=== PATIENT | female | born 1930 | race Caucasian/White ===

== ENCOUNTER 2016-05-18 10:37 | Emergency (ER) | payer OTHER ==
[~2016-05-18] VITALS: Ht 157.5 cm; Wt 95.0 kg
[~2016-05-18 10:37] MED LIST: ATEN100T PO; ATEN50TA PO; ATOR10TA15 PO; GLIM1TAB PO; HYDR-4107 PO; ISOS30TA15 PO; LOSA50TA PO; MECL-62 PO; METF500T PO; OMEP20TA PO; PERC5TAB12 PO
[2016-05-18 10:47] VITALS: BP 127/58; PULSE 60; RESP 18; TEMP 98.6; O2SAT 99
[2016-05-18 10:54] VITALS: BP 127/58; PULSE 59; RESP 18; O2SAT 100
[2016-05-18] MEDS ORDERED: SODIUM CHLORIDE 0.9% FLUSH 10 ML FLUSH IVF PRN (11:00)
--- NOTE | 2016-05-18 11:00 | PD ---
HPI Chief Complaint: Pain: Acute or Chronic Time Seen by Provider: 10:59 Travel History International Travel<30 days: No Contact w/Intl Traveler<30days: No Traveled to known affect area: No History of Present Illness HPI 85-year-old female came to the emergency room with history of a fall due to tripping and losing balance. She landed on her back and low she is hurting all over. Patient does have history of arthritis and chronic pain. She is not sure if she hurt her head. She called 911. They found her on the kitchen floor and she was therefore half an hour she said. She is awake and answering questions appropriately. Vital signs are relatively stable. PFSH Past Medical History Narrative Medical List of her past medical, surgical, social and family history was reviewed from the nursing note. Arthritis: Yes Asthma: No Blood Disorders: No Anxiety: Yes Depression: Yes Heart Rhythm Problems: No Cancer: No Cardiovascular Problems: Yes High Cholesterol: Yes Chest Pain: Yes Congestive Heart Failure: Yes COPD: Yes Coronary Artery Disease: Yes Diabetes: Yes Diminished Hearing: No Endocrine: Yes Gastrointestinal Disorders: Yes GERD: Yes Glaucoma: No Genitourinary: No Headaches: Yes Hepatitis: No Hiatal Hernia: No Hypertension: Yes Immune Disorder: No Musculoskeletal: No Neurologic: No Psychiatric: Yes Reproductive: No Immunizations Current: Yes Migraines: No Myocardial Infarction: Yes (2001) Radiation Therapy: No Seizures: No Sickle Cell Disease: No Sleep Apnea: No Ulcer: Yes (STOMACH) PNEUMOCCOCAL Vaccine (Year): 1 Menopausal: Yes : 10 Para: 9 Miscarriage: 1 Past Surgical History Abdominal Surgery: No AICD: No Arteriovenous Shunt: No Cardiac Surgery: Yes (CABG) Coronary Artery Bypass Graft: Yes ("4 OR 5 VESSELS") Ear Surgery: No Endocrine Surgery: No Eye Surgery: Yes (RT and LT CATARACTS) Genitourinary Surgery: No Gynecologic Surgery: No Insulin Pump: No Joint Replacement: No Oral Surgery: No Pacemaker: No Thoracic Surgery: No Tonsillectomy: Yes Other Surgery: Yes Social History Alcohol Use: No Tobacco Use: Yes (pt quit 15 years ago,) Substance Use: No Allergies-Medications (Allergen,Severity, Reaction): Coded Allergies: Contrast Media (Verified Allergy, Severe, CAN'T REMEMBER, 05/18/16) Pt states "I have no idea" to every allergy I ask her about Iodine (Verified Allergy, Severe, ON SKIN CAUSES BLISTERS, 05/18/16) Pt states "I have no idea" to every allergy I ask her about Shellfish (Verified Allergy, Severe, N/V, 05/18/16) Pt states "I have no idea" to every allergy I ask her about Codeine (Verified Allergy, Mild, NAUSEA, 05/18/16) Pt states "I have no idea" to every allergy I ask her about Comments List of her allergies reviewed from the nursing note. Reported Meds & Prescriptions Reported Meds & Active Scripts Active Macrobid (Nitrofurantoin Monoh/Nitrofur Macro) 100 Mg Cap 100 Mg PO BID 10 Days Reported Gabapentin 100 Mg Cap 100 Mg PO HS Hydrocodone-Acetaminophen 5-300 Mg Tab 1 Tab PO Q4H PRN Meclizine (Meclizine HCl) 25 Mg Tab 25 Mg PO DIRECTED PRN Atorvastatin (Atorvastatin Calcium) 10 Mg Tab 10 Mg PO HS Atenolol 50 Mg Tab 50 Mg PO DAILY Omeprazole 20 Mg Tab 20 Mg PO DAILY Losartan (Losartan Potassium) 50 Mg Tab 50 Mg PO DAILY Isosorbide Dinitrate 30 Mg Tab 1 Tab PO DAILY Glimepiride 1 Mg Tab 1 Mg PO DAILY Take with breakfast or first main meal Metformin (Metformin HCl) 500 Mg Tab 500 Mg PO BIDPC With meals Narrative Medication List of her home medications reviewed from the nursing note. Review of Systems Except as stated in HPI: all other systems reviewed are Neg Physical Exam Narrative GENERAL: Awake, alert, elderly, obese, moderate distress SKIN: Focused skin assessment warm/dry. No open wounds or bruises noticed. HEAD: Atraumatic. Normocephalic. EYES: Pupils equal and round. No scleral icterus. No injection or drainage. ENT: No nasal bleeding or discharge. Mucous membranes pink and moist. NECK: Trachea midline. No JVD. CARDIOVASCULAR: Regular rate and rhythm. No murmur appreciated. RESPIRATORY: No accessory muscle use. Clear to auscultation. Breath sounds equal bilaterally. GASTROINTESTINAL: Abdomen soft, non-tender, nondistended. Hepatic and splenic margins not palpable. MUSCULOSKELETAL: No obvious deformities. No clubbing. No cyanosis. No edema. NEUROLOGICAL: Awake and alert. No obvious cranial nerve deficits. Motor grossly within normal limits. Normal speech. PSYCHIATRIC: Appropriate mood and affect; insight and judgment normal. Data Data Last Documented VS Vital Signs Date Time Temp Pulse Resp B/P Pulse Ox O2 Delivery O2 Flow Rate FiO2 05/18/16 15:42 59 18 145/67 97 Room Air 05/18/16 10:47 98.6 Orders Complete Blood Count With Diff (05/18/16 11:00) Basic Metabolic Panel (Bmp) (05/18/16 11:00) Urinalysis - C+S If Indicated (05/18/16 11:00) Ct Brain W/O Iv Contrast(Rout) (05/18/16 11:00) Chest, Single Ap (05/18/16 11:00) Ecg Monitoring (05/18/16 11:00) Iv Access Insert/Monitor (05/18/16 11:00) Oximetry (05/18/16 11:00) Sodium Chloride 0.9% Flush (Ns Flush) (05/18/16 11:00) Ct Cerv Spine W/O Contrast (05/18/16 ) Tetanus/Diphtheria Tox Adult (Tetanus/Di (05/18/16 11:15) Diet Heart Healthy (05/18/16 Lunch) Urine Culture (05/18/16 11:15) Nitrofurantoin Monohyd Macrocr (Macrobid (05/18/16 12:30) Acetamin-Hydrocod 325-5 Mg ([place] 5-325 (05/18/16 14:00) Labs Laboratory Tests Test 05/18/16 05/18/16 11:00 11:15 White Blood Count 6.3 TH/MM3 Red Blood Count 3.74 MIL/MM3 Hemoglobin 9.8 GM/DL Hematocrit 30.9 % Mean Corpuscular Volume 82.5 FL Mean Corpuscular Hemoglobin 26.3 PG Mean Corpuscular Hemoglobin 31.9 % Concent Red Cell Distribution Width 15.7 % Platelet Count 180 TH/MM3 Mean Platelet Volume 10.9 FL Neutrophils (%) (Auto) 67.6 % Lymphocytes (%) (Auto) 21.0 % Monocytes (%) (Auto) 7.5 % Eosinophils (%) (Auto) 3.0 % Basophils (%) (Auto) 0.9 % Neutrophils # (Auto) 4.3 TH/MM3 Lymphocytes # (Auto) 1.3 TH/MM3 Monocytes # (Auto) 0.5 TH/MM3 Eosinophils # (Auto) 0.2 TH/MM3 Basophils # (Auto) 0.1 TH/MM3 CBC Comment DIFF FINAL Differential Comment Sodium Level 140 MEQ/L Potassium Level 4.5 MEQ/L Chloride Level 103 MEQ/L Carbon Dioxide Level 29.4 MEQ/L Anion Gap 8 MEQ/L Blood Urea Nitrogen 22 MG/DL Creatinine 1.12 MG/DL Estimat Glomerular Filtration 46 ML/MIN Rate Random Glucose 96 MG/DL Calcium Level 8.8 MG/DL Urine Color YELLOW Urine Turbidity HAZY Urine pH 6.5 Urine Specific [place] 1.014 Urine Protein TRACE mg/dL Urine Glucose (UA) NEG mg/dL Urine Ketones NEG mg/dL Urine Occult Blood NEG Urine Nitrite NEG Urine Bilirubin NEG Urine Urobilinogen LESS THAN 2.0 MG/DL Urine Leukocyte Esterase LARGE Urine RBC 1 /hpf Urine WBC 3 /hpf Urine Squamous Epithelial 7 /hpf Cells Urine Transitional Epithelial <1 /hpf Cells Urine Bacteria RARE /hpf Urine Hyaline Casts 2 /lpf Microscopic Urinalysis Comment CATH-CULTURE IND MDM Medical Decision Making Medical Screen Exam Complete: Yes Emergency Medical Condition: Yes Medical Record Reviewed: Yes Differential Diagnosis Intracranial bleed, cervical fracture, electrolyte abnormality Narrative Course 1:29 PM blood test results of back and within acceptable limits. UA suggestive of UTI. CT of the head was within normal limits. Awaiting for the report on CT cervical spine. Patient was given a dose of Macrobid. CT spine is negative she'll be discharged home on Macrobid. 1:[address] scan of her cervical spine just showed degenerative changes but otherwise negative. I'm going to discharge her at this point. Procedures EKG Prior to Arrival: No Diagnosis Primary Impression: Fall Qualified Code: W19.XXXA - Fall, initial encounter Additional Impression: UTI (urinary tract infection) Qualified Code: N39.0 - Urinary tract infection without hematuria, site unspecified Referrals: Primary Care Physician 2 days Additional Instructions: Please return to the ER if the condition worsens or any other new concerns. Take the medication as per the prescription direct. Follow-up with your primary care in couple days. Med/Other Pt SpecificInfo: Prescription(s) given Scripts Nitrofurantoin Monohydrate Macrocrystals (Macrobid)100 Mg [id number] Mg PO BID 10 Days Ref 0 Prov:Sd Hauser MD 05/18/16 Disposition: 01 DISCHARGE HOME Condition: Stable Sd Hauser MD May 18, 2016 11:00 Sd Hauser MD May 18, 2016 11:00
[2016-05-18 11:02] VITALS: RESP 18; O2SAT 99
[2016-05-18] MEDS ORDERED: TETANUS/DIPHTHERIA TOXOID ADULT 0.5 ML VIAL IM ONE (11:15)
[2016-05-18 11:27] LABS: AUTOMATED NEUTROPHIL # 4.3 TH/MM3 (1.8-7.7); BASOPHIL # 0.1 TH/MM3 (0-0.2); BASOPHIL % 0.9 % (0.0-2.0); EOSINOPHIL # 0.2 TH/MM3 (0-0.4); HEMATOCRIT 30.9 % (35.0-46.0); HEMO FLAGS DIFF FINAL; LYMPHOCYTE # 1.3 TH/MM3 (1.0-4.8); MEAN CELL VOLUME 82.5 FL (80.0-100.0); MEAN CORPUSCULAR HEMOGLOBIN 26.3 PG (27.0-34.0); MEAN CORPUSCULAR HGB CONC 31.9 % (32.0-36.0); MONO % 7.5 % (0.0-8.0); NEUT % 67.6 % (16.0-70.0); PLATELET COUNT 180 TH/MM3 (150-450); RED BLOOD COUNT 3.74 MIL/MM3 (4.00-5.30); RED CELL DISTRIBUTION WIDTH 15.7 % (11.6-17.2); WHITE BLOOD COUNT 6.3 TH/MM3 (4.0-11.0)
--- NOTE | 2016-05-18 11:31 | RADRPT ---
EXAM DATE/TIME: 05/18/2016 11:14 [facility] COMPARISON: CHEST SINGLE AP, February 15, 2015, 16:38. INDICATIONS : Short of breath. MEDICAL HISTORY : None. SURGICAL HISTORY : CABG. ENCOUNTER: Initial ACUITY: 1 day PAIN SCORE: 0/10 LOCATION: Bilateral chest FINDINGS: Mild bibasilar scarring or atelectasis. No evidence of effusion. Cardiac contours are stable. Previou s sternotomy. CONCLUSION: Stable chest appearance. Mild basilar scarring and atelectasis. Van Gautam MD on May 18, 2016 at 11:24 Board Certified Radiologist. This report was verified electronically.
[2016-05-18 11:32] LABS: BACTERIA, URINE RARE /hpf; BLOOD, URINE NEG (NEG); GLUCOSE,URINE NEG (NEG); HYALINE CAST, URINE 2 /lpf (RARE); KETONE, URINE NEG (NEG); NITRITE,URINE NEG (NEG); PH, URINE 6.5 (5.0-8.5); SQUAMOUS EPITHELIAL CELL URINE 7 /hpf (0-5); TRANSITIONAL EPI CELLS, URINE <1 /hpf; URINE COLOR YELLOW (YELLW/STRAW)
[2016-05-18 11:33] LABS: COMMENT (UR) CATH-CULTURE IND; CULTURE IF INDICATED CATH CULTURE IND
[2016-05-18 11:49] LABS: BICARBONATE 29.4 MEQ/L (21.0-32.0); POTASSIUM 4.5 MEQ/L (3.5-5.1)
[2016-05-18] MEDS ORDERED: NITROFURANTOIN MONOHYD MACROCR 100 MG CAP PO ONE (12:30)
--- NOTE | 2016-05-18 12:58 | RADRPT ---
EXAM DATE/TIME: 05/18/2016 12:19 [facility] COMPARISON: CT BRAIN W/O CONTRAST, December 30, 2015, 22:18. INDICATIONS : Trauma. Fall. RADIATION DOSE: 56.78 CTDIvol (mGy) MEDICAL HISTORY : Cardiovascular disease. Cerebrovascular disease. Diabetes mellitus type 2.Hypertension. SURGICAL HISTORY : None. ENCOUNTER: Initial ACUITY: 1 day PAIN SCALE: 10/10 LOCATION: cranial TECHNIQUE: Multiple contiguous axial images were obtained of the head. Using automated exposure control and adj ustment of the mA and/or kV according to patient size, radiation dose was kept as low as reasonably a chievable to obtain optimal diagnostic quality images. FINDINGS: CEREBRUM: The ventricles are normal for age. No evidence of midline shift, mass lesion, hemorrhage or acute in farction. No extra-axial fluid collections are seen. POSTERIOR FOSSA: The cerebellum and brainstem are intact. The 4th ventricle is midline. The cerebellopontine angle i s unremarkable. EXTRACRANIAL: The visualized portion of the orbits is intact. SKULL: The calvaria is intact. No evidence of skull fracture. CONCLUSION: Negative for acute process.. Crispin Castillo MD FACR on May 18, 2016 at 12:55 Board Certified Radiologist. This report was verified electronically.
[2016-05-18 13:00] VITALS: BP 126/67; PULSE 61; RESP 18; O2SAT 97
[2016-05-18] MEDS ORDERED: GABA100C4 PO (13:08)
[2016-05-18] MEDS ORDERED: MACR100C2 PO (13:30)
--- NOTE | 2016-05-18 13:41 | RADRPT ---
EXAM DATE/TIME: 05/18/2016 12:21 [facility] COMPARISON: CT CERVICAL SPINE W/O CONTRAST, December 30, 2015, 22:18. INDICATIONS : Trauma. Fall. RADIATION DOSE: 36.82 CTDIvol (mGy) MEDICAL HISTORY : Diabetes mellitus type 2. Cardiovascular disease Cerebrovascular disease.Hypertension. SURGICAL HISTORY : None. ENCOUNTER: Initial ACUITY: 1 day PAIN SCALE: 10/10 LOCATION: neck TECHNIQUE: Volumetric scanning of the cervical spine was performed. Multiplanar reconstructions in the sagittal, coronal and oblique axial planes were performed. Using automated exposure control and adjustment o f the mA and/or kV according to patient size, radiation dose was kept as low as reasonably achievable to obtain optimal diagnostic quality images. FINDINGS: There is slight straightening of normal cervical lordosis. No significant spondylolisthesis. There is no evidence of fracture or destructive change. There degenerative changes throughout with disc space narrowing and small endplate osteophytes at multiple levels, most conspicuously at C5-6 and C6-7. Th ere is no evidence of bony canal or foraminal compromise. There is fairly severe posterior facet arth ropathy at multiple levels bilaterally. There is no evidence of paraspinal hematoma. CONCLUSION: Degenerative changes throughout. No evidence of acute bony injury. Van Gautam MD on May 18, 2016 at 13:35 Board Certified Radiologist. This report was verified electronically.
[2016-05-18] MEDS ORDERED: ACETAMINOPHEN/HYDROcodone 325 MG/5 MG TAB PO ONE (14:00)
[2016-05-18 15:42] VITALS: BP 145/67; PULSE 59; RESP 18; O2SAT 97
== END 2016-05-18 16:04 | disposition home or self-care (01) ==
LOC: NEPC 10:37
DX: N39.0 Urinary tract infection, site not specified (principal); W19.XXXA Unspecified fall, initial encounter; M19.90 Unspecified osteoarthritis, unspecified site; F41.9 Anxiety disorder, unspecified; E78.00 Pure hypercholesterolemia, unspecified; I50.9 Heart failure, unspecified; I10 Essential (primary) hypertension; B96.89 Other specified bacterial agents as the cause of diseases classified elsewhere
CPT/HCPCS: 70450; 71010; 72125; 80048; 81001; 85025; 87086

== ENCOUNTER 2016-05-26 03:42 | Observation (INO) | payer OTHER ==
[~2016-05-26] VITALS: Ht 157.5 cm; Wt 85.0 kg
[2016-05-26] VITALS (10 sets, daily range): BP systolic 106–142; BP diastolic 49–71; PULSE 77–110; RESP 18–22; TEMP 95.7–98.2; O2SAT 94–100
[~2016-05-26 03:42] MED LIST changes: -ATEN100T PO; +GABA100C4 PO; +MACR100C2 PO; -PERC5TAB12 PO
[2016-05-26] MEDS ORDERED: MORPHINE SULFATE 4 MG/ML INJ IV PUSH ONE (04:45)
[2016-05-26] MEDS ORDERED: ONDANSETRON HCL 4 MG/2 ML VIAL IV PUSH ONE (04:45)
[2016-05-26] MEDS ORDERED: SODIUM CHLOR 0.9% 250 ML INJ 250 ML IV ONE (04:45)
[2016-05-26 04:59] LABS: BASOPHIL # 0.1 TH/MM3 (0-0.2); BASOPHIL % 0.7 % (0.0-2.0); EOSINOPHIL # 0.2 TH/MM3 (0-0.4); EOSINOPHIL % 2.5 % (0.0-4.0); HEMATOCRIT 31.6 % (35.0-46.0); HEMO FLAGS DIFF FINAL; LYMPH % 20.8 % (9.0-44.0); LYMPHOCYTE # 1.8 TH/MM3 (1.0-4.8); MEAN CELL VOLUME 82.8 FL (80.0-100.0); MEAN CORPUSCULAR HEMOGLOBIN 27.4 PG (27.0-34.0); MEAN CORPUSCULAR HGB CONC 33.1 % (32.0-36.0); MONO % 6.6 % (0.0-8.0); NEUT % 69.4 % (16.0-70.0); PLATELET COUNT 157 TH/MM3 (150-450); RED BLOOD COUNT 3.82 MIL/MM3 (4.00-5.30); RED CELL DISTRIBUTION WIDTH 16.2 % (11.6-17.2); WHITE BLOOD COUNT 8.6 TH/MM3 (4.0-11.0)
--- NOTE | 2016-05-26 05:20 | RADRPT ---
EXAM DATE/TIME: 05/26/2016 04:50 [facility] COMPARISON: CT ABDOMEN & PELVIS W/O CONTRAST, February 15, 2015, 17:39. INDICATIONS : Epigastric pain tonight. ORAL CONTRAST: No oral contrast ingested. RADIATION DOSE: 21.40 CTDIvol (mGy) MEDICAL HISTORY : Cardiovascular disease. Hypertension. Chronic obstructive pulmonary disease. SURGICAL HISTORY : CABG ENCOUNTER: Initial ACUITY: 1 day PAIN SCALE: 10/10 LOCATION: epigastric TECHNIQUE: Volumetric scanning of the abdomen and pelvis was performed. Using automated exposure control and ad justment of the mA and/or kV according to patient size, radiation dose was kept as low as reasonably achievable to obtain optimal diagnostic quality images. FINDINGS: LOWER LUNGS: The visualized lower lungs are clear. Left basilar atelectasis/scarring. LIVER: Homogeneous density without lesion. There is no dilation of the biliary tree. Gallbladder is mildly dilated and contains some small gallstones. SPLEEN: Normal size without lesion. PANCREAS: Within normal limits. KIDNEYS: Normal in size and shape. There is no mass, stone, or hydronephrosis. ADRENAL GLANDS: Within normal limits. VASCULAR: There is no aortic aneurysm. BOWEL/MESENTERY: The stomach, small bowel, and colon demonstrate no acute abnormality. There is no free intraperitone al air or fluid. ABDOMINAL WALL: Within normal limits. RETROPERITONEUM: There is no lymphadenopathy. BLADDER: No wall thickening or mass. REPRODUCTIVE: Heterogeneous uterus likely containing leiomyomas. INGUINAL: There is no lymphadenopathy or hernia. MUSCULOSKELETAL: Degenerative changes throughout the thoracolumbar spine. Arthrosis of the SI joints. Degenerative miguel nges of both hips. CONCLUSION: 1. Distended gallbladder containing gallstones. No inflammatory changes. This may be source of patien t's pain. 2. Uterine leiomyomas. 3. Left basilar atelectasis/scarring. Mark Holguin MD on May 26, 2016 at 5:10 Board Certified Radiologist. This report was verified electronically.
[2016-05-26 05:22] LABS: ANION GAP 8 MEQ/L (5-15); AST (GOT) 23 U/L (15-37); BICARBONATE 30.4 MEQ/L (21.0-32.0); BLOOD UREA NITROGEN 27 MG/DL (7-18); CHLORIDE 101 MEQ/L (98-107); GLOMERULAR FILTRATION RATE 53 ML/MIN (>89); POTASSIUM 4.4 MEQ/L (3.5-5.1); SODIUM (NA) 139 MEQ/L (136-145)
[2016-05-26 05:24] LABS: APTT (PATIENT) 24.5 SEC (24.3-30.1); PROTHROMBIN TIME - PATIENT 11.3 SEC (9.8-11.6)
[2016-05-26 05:25] LABS: ALKALINE PHOSPHATASE 69 U/L (45-117); ALT (GPT) 20 U/L (10-53); TOTAL BILIRUBIN ADULT 0.6 MG/DL (0.2-1.0)
[2016-05-26 05:27] LABS: CREATINE KINASE 67 U/L (26-192)
--- NOTE | 2016-05-26 05:41 | PD ---
HPI Chief Complaint: Abdominal Pain Time Seen by Provider: 03:56 Travel History International Travel<30 days: No Contact w/Intl Traveler<30days: No Traveled to known affect area: No History of Present Illness HPI The patient is a 85 year old female who presents to the [facility] emergency department with a history of abdominal pain that began this evening. The patient reports that the pain has been constant and gradually getting worse with time. She reports that the pain is sharp in character and in the midepigastric area. She denies ever having a pain like this previously. She reports that she does suffer with chronic constipation. She reports that she last moved her bowels in small amount yesterday. She reports that between 8 9 PM she did take some milk of magnesia. She reports that her last meal consisted of peanut butter and jelly at 8 PM. The patient reports that the pain in the midepigastric area radiates up into the lower chest. The patient was brought in by ambulance services and had IV access obtained prior to arrival. The patient's blood sugar was noted to be 176 prior to arrival. The patient denies having any abdominal surgeries previously. She reports that she has had a history of coronary artery bypass grafting and cataract surgery. The patient denies any recent fevers, cough, congestion, neck pain, shortness of breath, vomiting, diarrhea, urinary symptoms, or neurologic symptoms. [facility] Past Medical History Narrative Medical The patient's past medical history is significant for arthritis, neuropathy, anxiety disorder, depression, coronary artery disease, COPD, acid reflux, history of headaches, hypertension, history of a myocardial infarction in 2001, history of peptic ulcer disease Arthritis: Yes Asthma: No Blood Disorders: No Anxiety: Yes Depression: Yes Heart Rhythm Problems: No Cancer: No Cardiovascular Problems: Yes High Cholesterol: Yes Chest Pain: Yes Congestive Heart Failure: Yes COPD: Yes Coronary Artery Disease: Yes Diabetes: Yes Patient Takes Glucophage: Yes Diminished Hearing: No Endocrine: Yes Gastrointestinal Disorders: Yes GERD: Yes Glaucoma: No Genitourinary: No Headaches: Yes Hepatitis: No Hiatal Hernia: No Hypertension: Yes Immune Disorder: No Implanted Vascular Access Dvce: No Musculoskeletal: No Neurologic: No Psychiatric: Yes Reproductive: No Immunizations Current: Yes Migraines: No Myocardial Infarction: Yes (2001) Radiation Therapy: No Seizures: No Sickle Cell Disease: No Sleep Apnea: No Ulcer: Yes (STOMACH) PNEUMOCCOCAL Vaccine (Year): 1 Menopausal: Yes : 10 Para: 9 Miscarriage: 1 Past Surgical History Narrative Surgical The patient's past surgical history is significant for coronary artery bypass grafting, cataract surgery, tonsillectomy. Abdominal Surgery: No AICD: No Arteriovenous Shunt: No Cardiac Surgery: Yes (CABG) Coronary Artery Bypass Graft: Yes ("4 OR 5 VESSELS") Ear Surgery: No Endocrine Surgery: No Eye Surgery: Yes (RT and LT CATARACTS) Genitourinary Surgery: No Gynecologic Surgery: No Insulin Pump: No Joint Replacement: No Oral Surgery: No Pacemaker: No Thoracic Surgery: No Tonsillectomy: Yes Other Surgery: Yes Social History Alcohol Use: No Tobacco Use: Yes (pt quit 15 years ago,) Substance Use: No Allergies-Medications (Allergen,Severity, Reaction): Coded Allergies: Contrast Media (Verified Allergy, Severe, CAN'T REMEMBER, 05/26/16) Pt states "I have no idea" to every allergy I ask her about Iodine (Verified Allergy, Severe, ON SKIN CAUSES BLISTERS, 05/26/16) Pt states "I have no idea" to every allergy I ask her about Shellfish (Verified Allergy, Severe, N/V, 05/26/16) Pt states "I have no idea" to every allergy I ask her about Codeine (Verified Allergy, Mild, NAUSEA, 05/26/16) Pt states "I have no idea" to every allergy I ask her about Reported Meds & Prescriptions Reported Meds & Active Scripts Active Macrobid (Nitrofurantoin Monoh/Nitrofur Macro) 100 Mg Cap 100 Mg PO BID 10 Days Reported Gabapentin 100 Mg Cap 100 Mg PO HS Hydrocodone-Acetaminophen 5-300 Mg Tab 1 Tab PO Q4H PRN Meclizine (Meclizine HCl) 25 Mg Tab 25 Mg PO DIRECTED PRN Atorvastatin (Atorvastatin Calcium) 10 Mg Tab 10 Mg PO HS Atenolol 50 Mg Tab 50 Mg PO DAILY Omeprazole 20 Mg Tab 20 Mg PO DAILY Losartan (Losartan Potassium) 50 Mg Tab 50 Mg PO DAILY Isosorbide Dinitrate 30 Mg Tab 1 Tab PO DAILY Glimepiride 1 Mg Tab 1 Mg PO DAILY Take with breakfast or first main meal Metformin (Metformin HCl) 500 Mg Tab 500 Mg PO BIDPC With meals Review of Systems Except as stated in HPI: all other systems reviewed are Neg General / Constitutional: No: Fever Eyes: No: Visual changes HENT: No: Headaches Cardiovascular: No: Chest Pain or Discomfort Respiratory: No: Shortness of Breath Gastrointestinal: Positive: Abdominal Pain, Constipation, No: Nausea, Vomiting , Diarrhea, Hematemesis, Hematochezia, Changes in Bowel Habits, Indigestion, Loss of Appetite Genitourinary: No: Dysuria Musculoskeletal: No: Pain Skin: No Rash Neurologic: No: Weakness Psychiatric: No: Depression Endocrine: No: Polydipsia Hematologic/Lymphatic: No: Easy Bruising Physical Exam Narrative General: The patient is a well-developed well-nourished female, uncomfortable appearing on arrival, holding her abdomen, intermittently crying. Head and Neck exam: Head is normocephalic atraumatic. Eyes: EOMI, pupils are not equal on examination, pupils the left is slightly larger than the right, likely related to her history of cataract surgery. She denies having any vision changes. Nose: Midline septum with pink mucous membranes Mouth: Dentition unremarkable. Moist mucus membranes. Posterior oropharynx is not erythematous. No tonsillar hypertrophy. Uvula midline. Airway patent. Neck: No palpable lymphadenopathy. No nuchal rigidity. No thyromegaly. Cardiovascular: Regular rate and rhythm without murmurs, gallops, or rubs. Lungs: Clear to auscultation bilaterally. No wheezes, rhonchi, or rales. Abdomen: Distended with tenderness on palpation in the midepigastric area, no other point tenderness on palpation. No guarding, rebound, or rigidity. The patient has a positive Pacheco sign on examination. The patient has no tenderness on palpation of McBurney's point. Normal bowel sounds are audible. Extremities: No clubbing, cyanosis, or edema. 2+ pulses in all 4 extremities. No calf tenderness on palpation. Back: No costovertebral angle tenderness to palpation. Neurologic Exam: Grossly nonfocal. Skin Exam: No rash noted. Intact skin that is warm and dry. Data Data Last Documented VS Vital Signs Date Time Temp Pulse Resp B/P Pulse Ox O2 Delivery O2 Flow Rate FiO2 05/26/16 06:29 94 20 111/56 98 Room Air 05/26/16 03:44 98.2 Orders Complete Blood Count With Diff (05/26/16 04:32) Comprehensive Metabolic Panel (05/26/16 04:32) Creatine Kinase (Cpk) (05/26/16 04:32) Ckmb (Isoenzyme) Profile (05/26/16 04:32) Troponin I (05/26/16 04:32) B-Type Natriuretic Peptide (05/26/16 04:32) Prothrombin Time / Inr (Pt) (05/26/16 04:32) Act Partial Throm Time (Ptt) (05/26/16 04:32) C-Reactive Protein (Crp) (05/26/16 04:32) Lipase (05/26/16 04:32) Urinalysis - C+S If Indicated (05/26/16 04:32) Magnesium (Mg) (05/26/16 04:32) Chest, Single Ap (05/26/16 04:32) Iv Access Insert/Monitor (05/26/16 04:32) Ecg Monitoring (05/26/16 04:32) Oximetry (05/26/16 04:32) Ct Abd/Pel W/O Iv Contrast (05/26/16 04:32) Morphine Inj (Morphine Inj) (05/26/16 04:45) Ondansetron Inj (Zofran Inj) (05/26/16 04:45) Sodium Chlor 0.9% 250 Ml Inj (Ns 250 Ml (05/26/16 04:45) Hydromorphone Pf Inj (Dilaudid Pf Inj) (05/26/16 05:45) Admit Order (Ed Use Only) (05/26/16 06:34) Place In Observation (05/26/16 ) Vital Signs (Adult) Q4H (05/26/16 06:35) Activity Oob With Assistance (05/26/16 06:35) 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 .CONTINUOUS (05/26/16 06:35) Intake + Output SISI.QSHIFT (05/26/16 06:35) Sodium Chloride 0.9% Flush (Ns Flush) (05/26/16 06:45) Sodium Chloride 0.9% Flush (Ns Flush) (05/26/16 09:00) Ondansetron Inj (Zofran Inj) (05/26/16 06:45) Comprehensive Metabolic Panel (05/27/16 06:00) Complete Blood Count With Diff (05/27/16 06:00) Pt Request For Service (05/26/16 06:35) Case Management Consult (05/26/16 06:35) Naloxone Inj (Narcan Inj) (05/26/16 06:45) Labs Laboratory Tests Test 05/26/16 05/26/16 04:47 06:14 White Blood Count 8.6 TH/MM3 Red Blood Count 3.82 MIL/MM3 Hemoglobin 10.5 GM/DL Hematocrit 31.6 % Mean Corpuscular Volume 82.8 FL Mean Corpuscular Hemoglobin 27.4 PG Mean Corpuscular Hemoglobin 33.1 % Concent Red Cell Distribution Width 16.2 % Platelet Count 157 TH/MM3 Mean Platelet Volume 11.0 FL Neutrophils (%) (Auto) 69.4 % Lymphocytes (%) (Auto) 20.8 % Monocytes (%) (Auto) 6.6 % Eosinophils (%) (Auto) 2.5 % Basophils (%) (Auto) 0.7 % Neutrophils # (Auto) 6.0 TH/MM3 Lymphocytes # (Auto) 1.8 TH/MM3 Monocytes # (Auto) 0.6 TH/MM3 Eosinophils # (Auto) 0.2 TH/MM3 Basophils # (Auto) 0.1 TH/MM3 CBC Comment DIFF FINAL Differential Comment Prothrombin Time 11.3 SEC Prothromb Time International 1.0 RATIO Ratio Activated Partial 24.5 SEC Thromboplast Time Sodium Level 139 MEQ/L Potassium Level 4.4 MEQ/L Chloride Level 101 MEQ/L Carbon Dioxide Level 30.4 MEQ/L Anion Gap 8 MEQ/L Blood Urea Nitrogen 27 MG/DL Creatinine 0.99 MG/DL Estimat Glomerular Filtration 53 ML/MIN Rate Random Glucose 164 MG/DL Calcium Level 9.0 MG/DL Magnesium Level 2.0 MG/DL Total Bilirubin 0.6 MG/DL Aspartate Amino Transf 23 U/L (AST/SGOT) Alanine Aminotransferase 20 U/L (ALT/SGPT) Alkaline Phosphatase 69 U/L Total Creatine Kinase 67 U/L Troponin I LESS THAN 0.02 NG/ML C-Reactive Protein LESS THAN 0.29 MG/DL B-Type Natriuretic Peptide 55 PG/ML Total Protein 7.2 GM/DL Albumin 3.6 GM/DL Lipase 392 U/L Urine Color YELLOW Urine Turbidity CLEAR Urine pH 5.5 Urine Specific [place] 1.018 Urine Protein NEG mg/dL Urine Glucose (UA) NEG mg/dL Urine Ketones NEG mg/dL Urine Occult Blood NEG Urine Nitrite NEG Urine Bilirubin NEG Urine Urobilinogen LESS THAN 2.0 MG/DL Urine Leukocyte Esterase MOD Urine RBC 2 /hpf Urine WBC 2 /hpf Urine Squamous Epithelial 1 /hpf Cells Urine Transitional Epithelial <1 /hpf Cells Microscopic Urinalysis Comment CULT NOT INDICATED MDM Medical Decision Making Medical Screen Exam Complete: Yes Emergency Medical Condition: Yes Medical Record Reviewed: Yes Interpretation(s) Last Impressions Chest X-Ray 05/26/16431 Signed Impressions: Service Date/Time: Thursday, May 26, 2016 04:58 - CONCLUSION: Stable chest with left basilar scarring and previous CABG. Mark Holguin MD Abdomen/Pelvis CT 05/26/16431 Signed Impressions: Service Date/Time: Thursday, May 26, 2016 04:50 - CONCLUSION: 1. Distended gallbladder containing gallstones. No inflammatory changes. This may be source of patient's pain. 2. Uterine leiomyomas. 3. Left basilar atelectasis/ scarring. aMrk Holguin MD Cholangiopancreatography MRI 05/26/16 0000 Signed Impressions: Service Date/Time: Thursday, May 26, 2016 13:24 - CONCLUSION: Mild to moderate biliary ductal dilatation without evidence of duct stone or mass to explain this. Mildly prominent retroperitoneal lymph nodes. Van Gautam MD Differential Diagnosis Perforated ulcer, versus acute pancreatitis, versus peptic ulcer disease, versus bowel obstruction, versus constipation, versus diverticulitis, versus abdominal aortic aneurysm, versus acute cholecystitis, versus biliary colic Narrative Course During the course of the patients emergency department visit, the patients history, examination, and differential diagnosis were reviewed with the patient. The patient had IV access obtained and blood work sent for analysis. The patient was placed on a monitoring coordinator with oximetry and blood pressure monitoring. A CT scan of the abdomen and pelvis was ordered. The patient was provided morphine for pain, Zofran for nausea. The patient reported that this did not help at all with her 10 out of 10 pain. The patient was therefore given hydromorphone instead. The patient was started on normal saline IV fluids and The patients laboratory studies were reviewed and remarkable for a white count of 8.6, hemoglobin 10.5, platelets 107 with a normal differential. CMP is remarkable for a BUN is 27, glucose 164, LFTs within normal limits, troponin I 0.02, CPK 67, C-reactive protein less than 0.29, lipase 392, BNP is 55, PT PTT within normal limits. Urinalysis is unremarkable. Radiology studies were reviewed and remarkable for a chest x-ray that shows no acute abnormality. CT scan of the abdomen and pelvis shows a distended gallbladder containing gallstones, no acute inflammatory changes are noted. This may be the source of the pain, uterine leiomyoma, bibasilar atelectasis versus scarring noted. The patient has continued abdominal pain. She will be admitted to the hospital for intractable abdominal pain. Ultrasound was done to further evaluate her gallbladder. The patients results were discussed with the patient, including the plan of care. I explained that further testing and/ or monitoring is indicated based on the patients history, examination, and/ or laboratory findings. Therefore, I recommended admission for additional evaluation. The patient expressed understanding and was agreeable with this plan. The patient was admitted to the hospital in stable condition and [facility] Physician Communication Physician Communication The patient's case was discussed with Dr. Rain who did agree to admit the patient for further evaluation and treatment at this time Diagnosis Primary Impression: Intractable epigastric abdominal pain Additional Impression: Gallstones Admitting Information Admitting Physician Requests: Ninfa Sevilla MD May 26, 2016 05:41
[2016-05-26] MEDS ORDERED: HYDROmorphone HCL PF 1 MG/ML VIAL IV PUSH ONE (05:45)
--- NOTE | 2016-05-26 06:14 | RADRPT ---
EXAM DATE/TIME: 05/26/2016 04:58 [facility] COMPARISON: CHEST SINGLE AP, May 18, 2016, 11:14. INDICATIONS : Shortness of breath. MEDICAL HISTORY : Hypertension. Chronic obstructive pulmonary disease. Cardiovascular disease. SURGICAL HISTORY : CABG. ENCOUNTER: Initial ACUITY: 1 day PAIN SCORE: Non-responsive. LOCATION: Bilateral chest FINDINGS: A single view of the chest demonstrates the lungs to be symmetrically aerated without evidence of mas s, infiltrate or effusion. Minimal scarring in the left lower lobe. Previous CABG. The cardiomediast inal contours are unremarkable. Osseous structures are intact. CONCLUSION: Stable chest with left basilar scarring and previous CABG. Mark Holguin MD on May 26, 2016 at 6:11 Board Certified Radiologist. This report was verified electronically.
[2016-05-26] MEDS ORDERED: SODIUM CHLORIDE 0.9% FLUSH 10 ML FLUSH IV FLUSH PRN (06:45)
[2016-05-26] MEDS ORDERED: ONDANSETRON HCL 4 MG/2 ML VIAL IVP PRN (06:45)
[2016-05-26] MEDS ORDERED: NALOXONE HCL 0.4 MG/ML AMP IV PRN (06:45)
[2016-05-26] MEDS ORDERED: HYDROmorphone HCL PF 1 MG/ML VIAL IV PUSH PRN (06:45)
[2016-05-26 07:03] LABS: BLOOD, URINE NEG (NEG); GLUCOSE,URINE NEG (NEG); KETONE, URINE NEG (NEG); NITRITE,URINE NEG (NEG); PH, URINE 5.5 (5.0-8.5); SQUAMOUS EPITHELIAL CELL URINE 1 /hpf (0-5); TRANSITIONAL EPI CELLS, URINE <1 /hpf; URINE COLOR YELLOW (YELLW/STRAW)
[2016-05-26 07:13] LABS: COMMENT (UR) CULT NOT INDICATED; CULTURE IF INDICATED CULT NOT INDICATED
[2016-05-26] MEDS ORDERED: DEXTROSE 50% IN WATER 50 ML VIAL(D50) IV PUSH PRN (08:45)
[2016-05-26] MEDS ORDERED: GLUCAGON 1 MG/ML VIAL OTHER PRN (08:45)
[2016-05-26] MEDS: PANTOPRAZOLE SOD 20 MG DELAYED RELEASE TAB PO SCH (09:50)
[2016-05-26] MEDS: SODIUM CHLORIDE 0.9% FLUSH 10 ML FLUSH IV FLUSH SCH ×2 (09:51→21:24)
--- NOTE | 2016-05-26 10:27 | RADRPT ---
EXAM DATE/TIME: 05/26/2016 09:27 [facility] COMPARISON: CT ABDOMEN & PELVIS W/O CONTRAST, May 26, 2016, 4:50. INDICATIONS : Right upper quadrant pain. MEDICAL HISTORY : Hypertension. Myocardial infarction. CAD. COPD. Neuropathy. SURGICAL HISTORY : CABG. Tonsillectomy. ENCOUNTER: Initial ACUITY: 2 days PAIN SCORE: 7/10 LOCATION: Right upper quadrant MEASUREMENTS: LIVER: 17.1 cm length COMMON DUCT: 17 mm RIGHT KIDNEY: 10.9 x 4.3 x 5.2 cm FINDINGS: LIVER: Normal echotexture without focal lesion. There is mild intrahepatic bile duct dilatation. Main portal vein is patent with hepatopedal blood flow. COMMON DUCT: No intraluminal mass or stone visualized. GALLBLADDER: Gallbladder is distended and contains a few small stones. No wall thickening or pericholecystic fluid is present. Helminthologist reports a positive sonographic Pacheco sign. PANCREAS: The visualized portions are within normal limits. RIGHT KIDNEY: No evidence of hydronephrosis, stone, or mass. CONCLUSION: 1. Distended gallbladder containing stones. No wall thickening or pericholecystic fluid is present. H owever, there is a positive sonographic Pacheco sign. Findings therefore are suspicious for acute gall bladder obstruction/acute cholecystitis. 2. Dilated common bile duct. In retrospective review of the recent CT there is a questionable calcifi ed tiny stone in the distal common bile duct near the ampulla. This may explain the intrahepatic hepa tic bile duct dilatation. Van Kidd MD on May 26, 2016 at 10:22 Board Certified Radiologist. This report was verified electronically.
[2016-05-26] MEDS: INSULIN ASPART SUPPLEMENTAL SCALE SQ SCH ×3 (11:00→20:12)
--- NOTE | 2016-05-26 14:22 | HHI.HP ---
[facility] Service [facility] Primary Care Physician Laura Hood MD Admission Diagnosis Intractable abdominal pain, suspected acute cholecystitis Diagnoses: Chief Complaint: abdominal pain Travel History International Travel<30 Days: No Contact w/Intl Traveler <30 Da: No Traveled to Known Affected Are: No History of Present Illness 85 y/o female with a history of HTN, HLD, DM, Neuropathy, arthritis, vertigo, and gerd presented to the ED with complaints of Abdominal pain and bloating. She states the abdominal pain and bloating began about 1am this morning, she describes it as a sharp pain, 10/10, in the epigastric region with radiation throughout her whole abdomen. She denies any associated nausea or vomiting. Pain medication she was given she states helped, but she could use more. She states she last ate a peanut butter and jelly sandwich for dinner at about 8 pm , and prior to this she ate a donut at bin. At 1 am when then pain started she took one aspirin and then an hour later she took one hydrocodone, and had no relief. She was seen in the ED 1 week ago after she fell and landed on her left arm, she claims she was dizzy at this time. No LOC. She followed up with her PCP who gave her Augmentin for a wound on her left upper arm due to the fall. She currently denies any chest pain, sob, fever or chills. Review of Systems Constitutional: DENIES: Fever, Chills Respiratory: DENIES: Cough, Shortness of breath Cardiovascular: COMPLAINS OF: Lower Extremity Edema, DENIES: Chest pain Gastrointestinal: COMPLAINS OF: Abdominal pain, Constipation (chronic), DENIES : Nausea, Vomiting Genitourinary: DENIES: Dysuria Musculoskeletal: COMPLAINS OF: Joint pain (chronic (arthritis)), DENIES: Neck pain Hematologic/lymphatic: COMPLAINS OF: Lymphadenopathy Neurologic: DENIES: Headache Past Family Social History Past Medical History Diabetes Diabetic neuropathy Arthritis HTN [place] GERD HLD Past Surgical History CABG x3 Reported Medications Reported Meds & Active Scripts Active Macrobid (Nitrofurantoin Monoh/Nitrofur Macro) 100 Mg Cap 100 Mg PO BID 10 Days Reported Gabapentin 100 Mg Cap 100 Mg PO HS Hydrocodone-Acetaminophen 5-300 Mg Tab 1 Tab PO Q4H PRN Meclizine (Meclizine HCl) 25 Mg Tab 25 Mg PO DIRECTED PRN Atorvastatin (Atorvastatin Calcium) 10 Mg Tab 10 Mg PO HS Atenolol 50 Mg Tab 50 Mg PO DAILY Omeprazole 20 Mg Tab 20 Mg PO DAILY Losartan (Losartan Potassium) 50 Mg Tab 50 Mg PO DAILY Isosorbide Dinitrate 30 Mg Tab 1 Tab PO DAILY Glimepiride 1 Mg Tab 1 Mg PO DAILY Take with breakfast or first main meal Metformin (Metformin HCl) 500 Mg Tab 500 Mg PO BIDPC With meals Allergies: Coded Allergies: Contrast Media (Verified Allergy, Severe, CAN'T REMEMBER, 05/26/16) Pt states "I have no idea" to every allergy I ask her about Iodine (Verified Allergy, Severe, ON SKIN CAUSES BLISTERS, 05/26/16) Pt states "I have no idea" to every allergy I ask her about Shellfish (Verified Allergy, Severe, N/V, 05/26/16) Pt states "I have no idea" to every allergy I ask her about Codeine (Verified Allergy, Mild, NAUSEA, 05/26/16) Pt states "I have no idea" to every allergy I ask her about Active Ordered Medications Current Medications Medications (Trade) Dose Ordered Sig/Micky Route Start Time Stop Time Status Last Admin (NS Flush) 2 ml UNSCH PRN IV FLUSH 05/26/16 06:45 (NS Flush) 2 ml BID IV FLUSH 05/26/16 09:00 05/26/16 09:51 (Zofran Inj) 4 mg Q6H PRN IVP 05/26/16 06:45 (Narcan Inj) 0.4 mg UNSCH PRN IV 05/26/16 06:45 (Dilaudid Pf Inj) 0.2 mg Q4H PRN IV PUSH 05/26/16 06:45 05/26/16 10:48 (Lipitor) 10 mg HS PO 05/26/16 21:00 (Neurontin) 100 mg HS PO 05/26/16 21:00 (Imdur) 30 mg DAILY@07 PO 05/26/16 12:00 (Protonix) 20 mg DAILY PO 05/26/16 09:00 05/26/16 09:50 (D50w (Vial) Inj) 25 ml UNSCH PRN IV PUSH 05/26/16 08:45 (Glucagon Inj) 1 mg UNSCH PRN OTHER 05/26/16 08:45 Family History Patient denies any cardiac history in her family. Social History Tobacco use: denies Alcohol use: Denies Physical Exam Vital Signs Vital Signs Date Time Temp Pulse Resp B/P Pulse Ox O2 Delivery O2 Flow Rate FiO2 05/26/16 11:32 96.2 98 18 128/68 97 05/26/16 08:49 96.5 85 18 140/71 96 05/26/16 08:22 85 16 112/56 99 05/26/16 06:29 94 20 111/56 98 Room Air 05/26/16 04:37 98 Room Air 05/26/16 03:44 98.2 84 22 142/61 100 Physical Exam GENERAL: This is a well-nourished, well-developed patient, in a moderate amount of pain SKIN: left upper arm abrasion with erythema. HEAD: Atraumatic. Normocephalic. . EYES: Pupils equal round and reactive. Extraocular motions intact. ENT: Nose without bleeding, purulent drainage or septal hematoma. Airway patent. NECK: Trachea midline. No JVD or lymphadenopathy. Supple CARDIOVASCULAR: Regular rate and rhythm without murmurs, gallops, or rubs. RESPIRATORY: Clear to auscultation. Breath sounds equal bilaterally. No wheezes , rales, or rhonchi. GASTROINTESTINAL: Abdomen soft, tender in all quadrants, distended. No hepato- splenomegaly, or palpable masses. No guarding. MUSCULOSKELETAL: Bilateral lower Extremities with +1 edema. No joint tenderness , effusion, or edema noted. No calf tenderness. NEUROLOGICAL: Awake and alert. Motor and sensory grossly within normal limits. Five out of 5 muscle strength in all muscle groups. Normal speech. Laboratory Laboratory Tests Test 05/26/16 05/26/16 04:47 06:14 White Blood Count 8.6 Red Blood Count 3.82 Hemoglobin 10.5 Hematocrit 31.6 Mean Corpuscular Volume 82.8 Mean Corpuscular Hemoglobin 27.4 Mean Corpuscular Hemoglobin 33.1 Concent Red Cell Distribution Width 16.2 Platelet Count 157 Mean Platelet Volume 11.0 Neutrophils (%) (Auto) 69.4 Lymphocytes (%) (Auto) 20.8 Monocytes (%) (Auto) 6.6 Eosinophils (%) (Auto) 2.5 Basophils (%) (Auto) 0.7 Neutrophils # (Auto) 6.0 Lymphocytes # (Auto) 1.8 Monocytes # (Auto) 0.6 Eosinophils # (Auto) 0.2 Basophils # (Auto) 0.1 CBC Comment DIFF FINAL Differential Comment Prothrombin Time 11.3 Prothromb Time International 1.0 Ratio Activated Partial 24.5 Thromboplast Time Sodium Level 139 Potassium Level 4.4 Chloride Level 101 Carbon Dioxide Level 30.4 Anion Gap 8 Blood Urea Nitrogen 27 Creatinine 0.99 Estimat Glomerular Filtration 53 Rate Random Glucose 164 Calcium Level 9.0 Magnesium Level 2.0 Total Bilirubin 0.6 Aspartate Amino Transf 23 (AST/SGOT) Alanine Aminotransferase 20 (ALT/SGPT) Alkaline Phosphatase 69 Total Creatine Kinase 67 Troponin I LESS THAN 0.02 C-Reactive Protein LESS THAN 0.29 B-Type Natriuretic Peptide 55 Total Protein 7.2 Albumin 3.6 Lipase 392 Urine Color YELLOW Urine Turbidity CLEAR Urine pH 5.5 Urine Specific [place] 1.018 Urine Protein NEG Urine Glucose (UA) NEG Urine Ketones NEG Urine Occult Blood NEG Urine Nitrite NEG Urine Bilirubin NEG Urine Urobilinogen LESS THAN 2.0 Urine Leukocyte Esterase MOD Urine RBC 2 Urine WBC 2 Urine Squamous Epithelial 1 Cells Urine Transitional Epithelial <1 Cells Microscopic Urinalysis Comment CULT NOT INDICATED Result Diagram: 05/26/1644605/26/16446 Imaging Last Impressions Gall Bladder Ultrasound 05/26/16804 Signed Impressions: Service Date/Time: Thursday, May 26, 2016 09:27 - CONCLUSION: 1. Distended gallbladder containing stones. No wall thickening or pericholecystic fluid is present. However, there is a positive sonographic Pacheco sign. Findings therefore are suspicious for acute gallbladder obstruction/acute cholecystitis. 2. Dilated common bile duct. In retrospective review of the recent CT there is a questionable calcified tiny stone in the distal common bile duct near the ampulla. This may explain the intrahepatic hepatic bile duct dilatation. Van Kidd MD Chest X-Ray 05/26/16 0432 Signed Impressions: Service Date/Time: Thursday, May 26, 2016 04:58 - CONCLUSION: Stable chest with left basilar scarring and previous CABG. Mark Holguin MD Abdomen/Pelvis CT 05/26/16 0432 Signed Impressions: Service Date/Time: Thursday, May 26, 2016 04:50 - CONCLUSION: 1. Distended gallbladder containing gallstones. No inflammatory changes. This may be source of patient's pain. 2. Uterine leiomyomas. 3. Left basilar atelectasis/ scarring. Mark Holguin MD Cholangiopancreatography MRI 05/26/16 0000 Signed Impressions: Service Date/Time: Thursday, May 26, 2016 13:24 - CONCLUSION: Mild to moderate biliary ductal dilatation without evidence of duct stone or mass to explain this. Mildly prominent retroperitoneal lymph nodes. Van Gautam MD Assessment and Plan Problem List: (1) Acute cholecystitis ICD Code: K81.0 Status: Acute (2) Fall ICD Code: W19.XXXA Status: Chronic (3) Abrasion ICD Code: T14.8 Status: Acute (4) Diabetes mellitus ICD Code: E11.9 Status: Chronic (5) Hypertension ICD Code: I10 Status: Chronic (6) Hyperlipidemia ICD Code: E78.5 Status: Chronic Assessment and Plan 85 y/o female with a history of HTN, HLD, DM, Neuropathy, arthritis, vertigo, and gerd presented to the ED with complaints of Abdominal pain and bloating. Acute Cholecystitis Images: Gallbladder US shows a distended gallbladder containing stones. No wall thickening or pericholecystic fluid is present. However, there is a positive sonographic Pacheco sign and a dilated common bile duct. In retrospective review of the recent CT there is a questionable calcified tiny stone in the distal common bile duct near the ampulla. This may explain the intrahepatic hepatic bile duct dilatation. Abdomen/Pelvis CT shows a distended gallbladder containing gallstones. No inflammatory changes. This may be source of patient's pain. Uterine leiomyomas and Left basilar atelectasis/scarring. -General Surgery was consulted, and they then consulted GI for recommendations, possible endoscopy. MRCP shows mild to moderate biliary ductal dilatation without evidence of duct stone or mass to explain this. Mildly prominent retroperitoneal lymph nodes. No indication for ERCP per GI. -Pain management with IV Dilaudid -NPO for now. -follow up with GS in regards to possible cholecystectomy. Fall/ upper extremity abrasion, 1 week ago, patient suffered a wound on left arm , according to patients daughter just received a rx for Augmentin from PCP -Fall precautions -Restart Augmentin 500mg PO BID -Consult wound care Diabetes, Chronic -Accu checks with SSI HTN, chronic, currently on the lower side, may be due to pain medication -hold medications for now -Monitor vitals HLD, chronic -Cont home medications Lipitor DVT prophylaxis: SCDs Written by DEUCE Charles acting as scribe for Dr. Crump on 05/26/16 at 14: 14. Code Status FULL Discussed Condition With Patient and RN Problem Qualifiers (1) Diabetes mellitus: (2) Hyperlipidemia: Qualified Code: E78.2 - Mixed hyperlipidemia Tracee Vallecillo May 26, 2016 14:21 Benedict Crump DO May 26, 2016 18:09
--- NOTE | 2016-05-26 15:03 | RADRPT ---
EXAM DATE/TIME: 05/26/2016 13:24 [facility] COMPARISON: CT ABDOMEN & PELVIS W/O CONTRAST, May 26, 2016, 4:50. INDICATIONS : Abdominal pain. Cholelithiasis. MEDICAL HISTORY : Diabetes mellitus type 2. Cardiovascular disease Hypertension. COPD. SURGICAL HISTORY : Tonsillectomy. CABG ENCOUNTER: Subsequent ACUITY: 2 day PAIN SCORE: 7/10 LOCATION: upper quadrant abdomen. TECHNIQUE: Multiplanar, multisequence magnetic resonance imaging of the abdomen was performed. High-resolution 3D dataset was utilized to reconstruct maximum-intensity projection (MIP) images. FINDINGS: INTRAHEPATIC BILE DUCTS: Mildly dilated. No filling defects EXTRAHEPATIC BILE DUCTS: The common bile duct measures 13 at 14 mm. No stone or filling defect is identified. GALLBLADDER: Distended. Tiny stone in the fundus. LIVER: Normal size and signal intensity. No concerning liver lesion is identified on this non-contrast exam. PANCREAS: The main pancreatic duct is normal in size. There is no significant anatomical variant. Signal inte nsity is within normal limits. No mass is visualized on this non-contrast exam. OTHER: Is mildly prominent retroperitoneal lymph nodes, largest about 14 mm diameter near the aortic bifurca tion region. CONCLUSION: Mild to moderate biliary ductal dilatation without evidence of duct stone or mass to explain this. Mildly prominent retroperitoneal lymph nodes. aVn Gautam MD on May 26, 2016 at 14:25 Board Certified Radiologist. This report was verified electronically.
[2016-05-26] MEDS: ISOSORBIDE MONONITRATE 30 MG TAB PO SCH (15:34)
--- NOTE | 2016-05-26 15:45 | PD.CONS ---
HPI History of Present Illness This is a 85 year old female who came to the ER for evaluation of abdominal pain. Her pain began about 2 days ago and consist of a diffuse constant sharp pain that radiates up to her chest. She has associated bloating, but denies nausea or vomiting. No heartburn or reflux. She does have a long hx of constipation and frequently uses MOM to have a bowel movement. She had not had a bowel movement in several days and did take "a couple of swallows of MOM" yesterday. She passed a very small amount of loose stool, but states that she feels like she needs to have another bowel movement. She denies any weight loss , nausea, vomiting, heartburn, reflux. She denies any prior history of GB disease. She came to the ER for further evaluation. Abdomen/Pelvis CT (05/26/16 )----> 1. Distended gallbladder containing gallstones. No inflammatory changes. This may be source of patient's pain. 2. Uterine leiomyomas. 3. Left basilar atelectasis/scarring. Gall Bladder Ultrasound *(05/26/16)---> 1. Distended gallbladder containing stones. No wall thickening or pericholecystic fluid is present. However, there is a positive sonographic Pacheco sign. Findings therefore are suspicious for acute gallbladder obstruction/acute cholecystitis. 2. Dilated common bile duct. In retrospective review of the recent CT there is a questionable calcified tiny stone in the distal common bile duct near the ampulla. This may explain the intrahepatic hepatic bile duct dilatation. Of note, she has normal LFTs and a normal lipase. MRCP (05/26/16)-- ---> Mild to moderate biliary ductal dilatation without evidence of duct stone or mass to explain this. Mildly prominent retroperitoneal lymph nodes. GI was consulted for further evaluation. (Marifer Desouza) PFSH Past Medical History Diabetes Diabetic neuropathy Arthritis HTN [place] GERD Hyperlipidemia Past Surgical History CABG x3 (Marifer Desouza) Coded Allergies: Contrast Media (Verified Allergy, Severe, CAN'T REMEMBER, 05/26/16) Pt states "I have no idea" to every allergy I ask her about Iodine (Verified Allergy, Severe, ON SKIN CAUSES BLISTERS, 05/26/16) Pt states "I have no idea" to every allergy I ask her about Shellfish (Verified Allergy, Severe, N/V, 05/26/16) Pt states "I have no idea" to every allergy I ask her about Codeine (Verified Allergy, Mild, NAUSEA, 05/26/16) Pt states "I have no idea" to every allergy I ask her about Medications Allergies Coded Allergies Type Severity Reaction Last Updated Verified Contrast Media Allergy Severe CAN'T REMEMBER 05/26/16 Yes Iodine Allergy Severe ON SKIN CAUSES BLISTERS 05/26/16 Yes Shellfish Allergy Severe N/V 05/26/16 Yes Codeine Allergy Mild NAUSEA 05/26/16 Yes Active Scripts Medications Dose Route/Sig Days Date Category Dose Instructions Macrobid (Nitrofurantoin Monoh/Nitrofur Macro) 100 Mg Cap 100 Mg PO BID 10 05/18/16 Rx Gabapentin 100 Mg Cap 100 Mg PO HS 05/18/16 Reported Hydrocodone-Acetaminophen 5-300 Mg Tab 1 Tab PO Q4H PRN 12/30/15 Reported Meclizine (Meclizine HCl) 25 Mg Tab 25 Mg PO DIRECTED PRN 12/30/15 Reported Atorvastatin (Atorvastatin Calcium) 10 Mg Tab 10 Mg PO HS 12/30/15 Reported Atenolol 50 Mg Tab 50 Mg PO DAILY 12/30/15 Reported Omeprazole 20 Mg Tab 20 Mg PO DAILY 12/30/15 Reported Losartan (Losartan Potassium) 50 Mg Tab 50 Mg PO DAILY 12/30/15 Reported Isosorbide Dinitrate 30 Mg Tab 1 Tab PO DAILY 12/30/15 Reported Glimepiride 1 Mg Tab 1 Mg PO DAILY 12/30/15 Reported Take with breakfast or first main meal Metformin (Metformin HCl) 500 Mg Tab 500 Mg PO BIDPC 12/30/15 Reported With meals Family History Noncontributory Social History Denies tobacco, etoh, illicit drug use. (Marifer Desouza) Review of Systems Constitutional: COMPLAINS OF: Fatigue, Weight gain, DENIES: Weight loss, Change in appetite Respiratory: DENIES: Cough Gastrointestinal: COMPLAINS OF: Abdominal pain, Constipation, Swelling of Abdomen, DENIES: Black stools, Bloody stools, Diarrhea, Nausea, Vomiting, Heartburn Musculoskeletal: COMPLAINS OF: Joint pain Integumentary: DENIES: Abnormal pigmentation Hematologic/lymphatic: DENIES: Bruising Neurologic: DENIES: Headache Psychiatric: DENIES: Confusion (Marifer Desouza) GI Exam Vitals I&O Vital Signs Date Time Temp Pulse Resp B/P Pulse Ox O2 Delivery O2 Flow Rate FiO2 05/26/16 15:18 95.7 77 18 126/61 99 05/26/16 11:32 96.2 98 18 128/68 97 05/26/16 08:49 96.5 85 18 140/71 96 05/26/16 08:22 85 16 112/56 99 05/26/16 06:29 94 20 111/56 98 Room Air 05/26/16 04:37 98 Room Air 05/26/16 03:44 98.2 84 22 142/61 100 Imaging Last Impressions Gall Bladder Ultrasound 05/26/16 0805 Signed Impressions: Service Date/Time: Thursday, May 26, 2016 09:27 - CONCLUSION: 1. Distended gallbladder containing stones. No wall thickening or pericholecystic fluid is present. However, there is a positive sonographic Pacheco sign. Findings therefore are suspicious for acute gallbladder obstruction/acute cholecystitis. 2. Dilated common bile duct. In retrospective review of the recent CT there is a questionable calcified tiny stone in the distal common bile duct near the ampulla. This may explain the intrahepatic hepatic bile duct dilatation. Van Kidd MD Chest X-Ray 05/26/16431 Signed Impressions: Service Date/Time: Thursday, May 26, 2016 04:58 - CONCLUSION: Stable chest with left basilar scarring and previous CABG. Mark Holguin MD Abdomen/Pelvis CT 05/26/16431 Signed Impressions: Service Date/Time: Thursday, May 26, 2016 04:50 - CONCLUSION: 1. Distended gallbladder containing gallstones. No inflammatory changes. This may be source of patient's pain. 2. Uterine leiomyomas. 3. Left basilar atelectasis/ scarring. Mark Holguin MD Cholangiopancreatography MRI 05/26/16 0000 Signed Impressions: Service Date/Time: Thursday, May 26, 2016 13:24 - CONCLUSION: Mild to moderate biliary ductal dilatation without evidence of duct stone or mass to explain this. Mildly prominent retroperitoneal lymph nodes. Van Gautam MD Laboratory Test 05/26/16 05/26/16 04:47 06:14 White Blood Count 8.6 TH/MM3 Red Blood Count 3.82 MIL/MM3 Hemoglobin 10.5 GM/DL Hematocrit 31.6 % Mean Corpuscular Volume 82.8 FL Mean Corpuscular Hemoglobin 27.4 PG Mean Corpuscular Hemoglobin 33.1 % Concent Red Cell Distribution Width 16.2 % Platelet Count 157 TH/MM3 Mean Platelet Volume 11.0 FL Neutrophils (%) (Auto) 69.4 % Lymphocytes (%) (Auto) 20.8 % Monocytes (%) (Auto) 6.6 % Eosinophils (%) (Auto) 2.5 % Basophils (%) (Auto) 0.7 % Neutrophils # (Auto) 6.0 TH/MM3 Lymphocytes # (Auto) 1.8 TH/MM3 Monocytes # (Auto) 0.6 TH/MM3 Eosinophils # (Auto) 0.2 TH/MM3 Basophils # (Auto) 0.1 TH/MM3 CBC Comment DIFF FINAL Differential Comment Prothrombin Time 11.3 SEC Prothromb Time International 1.0 RATIO Ratio Activated Partial 24.5 SEC Thromboplast Time Sodium Level 139 MEQ/L Potassium Level 4.4 MEQ/L Chloride Level 101 MEQ/L Carbon Dioxide Level 30.4 MEQ/L Anion Gap 8 MEQ/L Blood Urea Nitrogen 27 MG/DL Creatinine 0.99 MG/DL Estimat Glomerular Filtration 53 ML/MIN Rate Random Glucose 164 MG/DL Calcium Level 9.0 MG/DL Magnesium Level 2.0 MG/DL Total Bilirubin 0.6 MG/DL Aspartate Amino Transf 23 U/L (AST/SGOT) Alanine Aminotransferase 20 U/L (ALT/SGPT) Alkaline Phosphatase 69 U/L Total Creatine Kinase 67 U/L Troponin I LESS THAN 0.02 NG/ML C-Reactive Protein LESS THAN 0.29 MG/DL B-Type Natriuretic Peptide 55 PG/ML Total Protein 7.2 GM/DL Albumin 3.6 GM/DL Lipase 392 U/L Urine Color YELLOW Urine Turbidity CLEAR Urine pH 5.5 Urine Specific [place] 1.018 Urine Protein NEG mg/dL Urine Glucose (UA) NEG mg/dL Urine Ketones NEG mg/dL Urine Occult Blood NEG Urine Nitrite NEG Urine Bilirubin NEG Urine Urobilinogen LESS THAN 2.0 MG/DL Urine Leukocyte Esterase MOD Urine RBC 2 /hpf Urine WBC 2 /hpf Urine Squamous Epithelial 1 /hpf Cells Urine Transitional Epithelial <1 /hpf Cells Microscopic Urinalysis Comment CULT NOT INDICATED Physical Examination HEENT: Normocephalic; atraumatic; no jaundice. CHEST: CTA CARDIAC: RRR. ABDOMEN: Soft, distended, diffuse tenderness, no hepatosplenomegaly; bowel sounds are hypoactive bowel sounds. EXTREMITIES: No clubbing, cyanosis, or edema. SKIN: Normal; no rash; no jaundice. DEMOLITION EXPERT: No focal deficits; alert and oriented times three. (Marifer Desouza [facility]) Assessment and Plan Plan ASSESSMENT: - Constipation, abdominal distention. Long hx of constipation- states no bm for a few days, took MOM yesterday, had very small amount of loose stool, but says she did not pass any significant amount of stool. No hx of colonoscopy. Will give SSE x 2, Magnesium citrate, start Miralax daily. - Abdominal pain, unclear if related to constipation/distention vs. GB etiology. Will treat constipation and see if her pain improves with this. GS following. - Cholelithiasis with questionable choledocholithiasis. Abdomen/Pelvis CT (05/26)----> 1. Distended gallbladder containing gallstones. No inflammatory changes. This may be source of patient's pain. 2. Uterine leiomyomas. 3. Left basilar atelectasis/scarring. Gall Bladder Ultrasound *(05/26/16)---> 1. Distended gallbladder containing stones. No wall thickening or pericholecystic fluid is present. However, there is a positive sonographic Pacheco sign. Findings therefore are suspicious for acute gallbladder obstruction/acute cholecystitis. 2. Dilated common bile duct. In retrospective review of the recent CT there is a questionable calcified tiny stone in the distal common bile duct near the ampulla. This may explain the intrahepatic hepatic bile duct dilatation. MRCP (05/26/16)-----> Mild to moderate biliary ductal dilatation without evidence of duct stone or mass to explain this. Mildly prominent retroperitoneal lymph nodes. LFTs and Lipase normal. GS following. NO CHOLEDOCHOLITHIASIS ON MRCP. - Anemia. HH 10.5/31.6. PLAN: - NPO - Magnesium citrate x 1 now - SSE x 2 now - Miralax 17 gram po daily - CBC, CMP in am - GS following - No CBD on MRCP, no need for ERCP. - Supportive care - Further recommendations to follow based on results of above - Pt seen and examined by Dr. Almazan and myself and this note is written on his behalf (Marifer Desouza) Physician Comments patient was seen and examined, agree with above note, D/W Dr. Sands, no indication for ERCP at this time, we will try to clear constipation, if still having abdominal pain then she will need GB removed. (Hawa Almazan MD) Marifer Desouza May 26, 2016 15:44 Hwaa Almazan MD May 26, 2016 17:49
[2016-05-26] MEDS ORDERED: MAGNESIUM CITRATE SOLN 300 ML BTL PO ONE (16:15)
[2016-05-26] MEDS: POLYETHYLENE GLYCOL 17 GM PKG PO SCH (16:41)
[2016-05-26] MEDS: HYDROmorphone HCL PF 1 MG/ML VIAL IV PUSH PRN ×2 (16:53→22:29)
--- NOTE | 2016-05-26 20:08 | MB ---
cc: CAROLYN PARK M.D. DATE OF CONSULTATION 05/26/2016 REASON FOR CONSULTATION Symptomatic cholelithiasis. HISTORY OF PRESENT ILLNESS The patient is a complex 85-year-old female with multiple medical problems who began to have abdominal pain and bloating about 1 a.m. today. The patient reported pain also in the epigastric region which radiated up into her chest. This also radiated throughout her entire abdomen and was not localized just to right upper quadrant. The patient had workup including troponins which were negative but was given some laxatives by her family as she was unable to have a bowel movement. The patient was in the emergency department one week ago after she fell and landed on her left arm. The patient denies any pain of this nature in the past that she can recall. REVIEW OF SYSTEMS Negative except as indicated above with chronic arthritis and chronic constipation. She denies any fever, chills or emesis or nausea. PAST MEDICAL HISTORY Includes: 1. Diabetes mellitus. 2. Diabetic neuropathy. 3. Hypertension. 4. 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 5. GE reflux disease. MEDICATIONS ON ADMISSION Include: 1. Macrobid 100 mg b.i.d. 2. Gabapentin 100 mg p.o. q.h.s. 3. Hydrocodone / Acetaminophen 5/300 one q.4h as needed. 4. Meclizine 25 mg as needed. 5. Atorvastatin 10 mg p.o. q.h.s. 6. Atenolol 50 mg p.o. daily. 7. Omeprazole 20 mg p.o. q. day. 8. Losartan 50 mg p.o. q.day. 9. Isosorbide dinitrate 30 mg p.o. q. day. 10. Glimepiride 1 mg q. day. 11. Metformin 500 mg b.i.d. with meals. ALLERGIES THE PATIENT HAS AN ALLERGY TO CONTRAST MEDIA WHAT SPECIFIC TYPE NOT KNOWN. IODINE, SHELL FISH, CODEINE. HOWEVER, SHE IS ABLE TO TAKE HYDROCODONE WITH NO PROBLEM. PHYSICAL EXAMINATION GENERAL: Reveals an obese female who is mildly uncomfortable. VITAL SIGNS: Blood pressure 128/68, pulse 98, respirations 18, temperature 96.2, 97% saturation on room air. HEENT: Sclerae anicteric. Pupils reactive. Dentition is poor. NECK: Supple. CHEST: Clear to auscultation. CARDIOVASCULAR: Exam reveals regular rate and rhythm. ABDOMEN: Soft but with diffuse tenderness especially in the epigastrium and left and right upper quadrants. The patient also has tenderness in both lower quadrants. EXTREMITIES: Pulses are present. NEUROLOGIC: Exam is nonfocal. LABORATORY DATA Laboratory values demonstrate WBC of 8.6. Chemistries demonstrate troponin of less than 0.02. All liver function tests are within normal limits. BUN is elevated at 27. Potassium is 4.4. INR is 1.0. IMAGING Gallbladder ultrasound demonstrates a distended gallbladder containing stones. There is no wall thickening or pericholecystic fluid noted. There is a report of a positive sonographic Pacheco sign but the patient's entire abdomen is tender. CT of the abdomen and pelvis reveals a distended gallbladder with no inflammatory changes. On retrospective review there is a question of the patient having a small calcified stone in the distal common bile duct. I have ordered an MRCP after seeing the patient this morning and there was mild to moderate biliary ductal dilatation without evidence of duct stone or mass to explain this. Mildly prominent retroperitoneal nodes were noted. ASSESSMENT Diffuse abdominal pain with gallstones; no evidence of acute cholecystitis by imaging studies although she does have diffuse abdominal pain. I have concern that the patient may have chronic constipation causing some of her constellation of symptoms and do not want to put her to put her through surgical procedure if she has an easily treatable problem. I have discussed the case with Dr. Almazan and she will be given laxatives and if this completely resolved her symptoms, we will hold off on any intervention. He does not feel that endoscopy would be of tremendous benefit at this point as she has not had any nonsteroidal anti-inflammatories I am in agreement. Would plan surgical procedure tomorrow afternoon if she does not have resolution of her symptoms. Thank you Dr. Lacey for this consultation. MD BRIAN Knowles/JULIET /7:18 PM /7:41 PM
[2016-05-26] MEDS: AMOXICILLIN/CLAVULANATE K 500 MG TAB PO SCH (21:00)
[2016-05-26] MEDS: ATORVASTATIN 10 MG TAB PO SCH (21:24)
[2016-05-26] MEDS: GABAPENTIN 100 MG CAP PO SCH (21:24)
[2016-05-27 01:32] VITALS: BP 121/68; PULSE 87; RESP 18; TEMP 98.4; O2SAT 97
[2016-05-27 05:36] VITALS: BP 128/74; PULSE 74; RESP 21; TEMP 98; O2SAT 98
[2016-05-27] MEDS: ISOSORBIDE MONONITRATE 30 MG TAB PO SCH (06:03)
[2016-05-27] MEDS: INSULIN ASPART SUPPLEMENTAL SCALE SQ SCH ×4 (06:17→20:56)
[2016-05-27 07:19] LABS: AUTOMATED NEUTROPHIL # 6.2 TH/MM3 (1.8-7.7); BASOPHIL % 0.5 % (0.0-2.0); EOSINOPHIL % 0.4 % (0.0-4.0); HEMATOCRIT 30.5 % (35.0-46.0); HEMO FLAGS DIFF FINAL; LYMPH % 18.8 % (9.0-44.0); LYMPHOCYTE # 1.6 TH/MM3 (1.0-4.8); MEAN CELL VOLUME 83.4 FL (80.0-100.0); MEAN CORPUSCULAR HEMOGLOBIN 26.4 PG (27.0-34.0); MEAN CORPUSCULAR HGB CONC 31.7 % (32.0-36.0); MONO % 8.2 % (0.0-8.0); NEUT % 72.1 % (16.0-70.0); PLATELET COUNT 126 TH/MM3 (150-450); RED BLOOD COUNT 3.66 MIL/MM3 (4.00-5.30); RED CELL DISTRIBUTION WIDTH 15.9 % (11.6-17.2); WHITE BLOOD COUNT 8.5 TH/MM3 (4.0-11.0)
[2016-05-27 07:39] VITALS: BP 129/57; PULSE 100; RESP 20; TEMP 98; O2SAT 95
[2016-05-27 07:43] LABS: ALKALINE PHOSPHATASE 104 U/L (45-117); ALT (GPT) 158 U/L (10-53); ANION GAP 8 MEQ/L (5-15); AST (GOT) 165 U/L (15-37); BICARBONATE 29.3 MEQ/L (21.0-32.0); BLOOD UREA NITROGEN 23 MG/DL (7-18); CHLORIDE 101 MEQ/L (98-107); GLOMERULAR FILTRATION RATE 49 ML/MIN (>89); POTASSIUM 4.6 MEQ/L (3.5-5.1); SODIUM (NA) 138 MEQ/L (136-145); TOTAL BILIRUBIN ADULT 0.9 MG/DL (0.2-1.0)
--- NOTE | 2016-05-27 08:57 | HHI.GIFU ---
Subjective Remarks Patient resting in bed. She has had multiple bowel movements. Her abdominal distention has improved. She is no longer having abdominal pain or tenderness. She does complain of a dull ache in her right buttock. No n/v. No obvious blood loss. Objective Vitals I&O Vital Signs Date Time Temp Pulse Resp B/P Pulse Ox O2 Delivery O2 Flow Rate FiO2 05/27/16 07:39 98.0 100 20 129/57 95 05/27/16 05:36 98.0 74 21 128/74 98 05/27/16 01:32 98.4 87 18 121/68 97 05/26/16 22:00 110 05/26/16 20:00 97.7 110 18 106/49 94 05/26/16 17:12 87 05/26/16 15:18 95.7 77 18 126/61 99 05/26/16 11:32 96.2 98 18 128/68 97 05/26/16 08:49 96.5 85 18 140/71 96 I/O 05/26/16 05/26/16 05/26/16 05/27/16 05/27/16 05/27/16 07:00 15:00 23:00 07:00 15:00 23:00 Intake Total 580 ml Balance 580 ml Intake Oral 580 ml # Voids 1 # Bowel Movements 1 3 Laboratory Laboratory Tests Test 05/27/16 05:42 White Blood Count 8.5 Red Blood Count 3.66 Hemoglobin 9.7 Hematocrit 30.5 Mean Corpuscular Volume 83.4 Mean Corpuscular Hemoglobin 26.4 Mean Corpuscular Hemoglobin 31.7 Concent Red Cell Distribution Width 15.9 Platelet Count 126 Mean Platelet Volume 11.0 Neutrophils (%) (Auto) 72.1 Lymphocytes (%) (Auto) 18.8 Monocytes (%) (Auto) 8.2 Eosinophils (%) (Auto) 0.4 Basophils (%) (Auto) 0.5 Neutrophils # (Auto) 6.2 Lymphocytes # (Auto) 1.6 Monocytes # (Auto) 0.7 Eosinophils # (Auto) 0.0 Basophils # (Auto) 0.0 CBC Comment DIFF FINAL Differential Comment Sodium Level 138 Potassium Level 4.6 Chloride Level 101 Carbon Dioxide Level 29.3 Anion Gap 8 Blood Urea Nitrogen 23 Creatinine 1.07 Estimat Glomerular Filtration 49 Rate Random Glucose 117 Calcium Level 8.5 Total Bilirubin 0.9 Aspartate Amino Transf 165 (AST/SGOT) Alanine Aminotransferase 158 (ALT/SGPT) Alkaline Phosphatase 104 Total Protein 6.8 Albumin 3.1 Imaging Last Impressions Gall Bladder Ultrasound 05/26/16804 Signed Impressions: Service Date/Time: Thursday, May 26, 2016 09:27 - CONCLUSION: 1. Distended gallbladder containing stones. No wall thickening or pericholecystic fluid is present. However, there is a positive sonographic Pacheco sign. Findings therefore are suspicious for acute gallbladder obstruction/acute cholecystitis. 2. Dilated common bile duct. In retrospective review of the recent CT there is a questionable calcified tiny stone in the distal common bile duct near the ampulla. This may explain the intrahepatic hepatic bile duct dilatation. Van Kidd MD Chest X-Ray 05/26/16431 Signed Impressions: Service Date/Time: Thursday, May 26, 2016 04:58 - CONCLUSION: Stable chest with left basilar scarring and previous CABG. Mark Holguin MD Abdomen/Pelvis CT 05/26/16431 Signed Impressions: Service Date/Time: Thursday, May 26, 2016 04:50 - CONCLUSION: 1. Distended gallbladder containing gallstones. No inflammatory changes. This may be source of patient's pain. 2. Uterine leiomyomas. 3. Left basilar atelectasis/ scarring. Mark Holguin MD Cholangiopancreatography MRI 05/26/16 0000 Signed Impressions: Service Date/Time: Thursday, May 26, 2016 13:24 - CONCLUSION: Mild to moderate biliary ductal dilatation without evidence of duct stone or mass to explain this. Mildly prominent retroperitoneal lymph nodes. Van Gautam MD Physical Exam HEENT: Normocephalic; atraumatic; no jaundice. CHEST: Chest is clear to auscultation and percussion. CARDIAC: RR. ABDOMEN: Soft, rounded, nontender; no hepatosplenomegaly; bowel sounds are present in all four quadrants. EXTREMITIES: No clubbing, cyanosis, or edema. SKIN: Normal; no rash; no jaundice. [employer] F[employer]: No focal deficits; alert and oriented times three. Assessment and Plan Plan ASSESSMENT: - Constipation, abdominal distention. Long hx of constipation- states no bm for a few days, took MOM yesterday, had very small amount of loose stool, but says she did not pass any significant amount of stool. No hx of colonoscopy. S/P SSE x 2, Magnesium citrate. Miralax daily. Pt has had multiple bowel movements and her distention has improved. - Abdominal pain, unclear if related to constipation/distention vs. GB etiology. Likely her pain was related to constipation as she is no longer having abdominal pain. GS following. - Cholelithiasis with questionable choledocholithiasis. Abdomen/Pelvis CT (05/26)----> 1. Distended gallbladder containing gallstones. No inflammatory changes. This may be source of patient's pain. 2. Uterine leiomyomas. 3. Left basilar atelectasis/scarring. Gall Bladder Ultrasound *(05/26/16)---> 1. Distended gallbladder containing stones. No wall thickening or pericholecystic fluid is present. However, there is a positive sonographic Pacheco sign. Findings therefore are suspicious for acute gallbladder obstruction/acute cholecystitis. 2. Dilated common bile duct. In retrospective review of the recent CT there is a questionable calcified tiny stone in the distal common bile duct near the ampulla. This may explain the intrahepatic hepatic bile duct dilatation. MRCP (05/26/16)-----> Mild to moderate biliary ductal dilatation without evidence of duct stone or mass to explain this. Mildly prominent retroperitoneal lymph nodes. LFTs and Lipase normal. GS following. No choledocholithiasis on MRCP. However, increase in transaminases today. No RUQ pain. WBC normal. Afebrile. - Elevated LFTs. T. Bili 0.9, AST 165, ALT 158, Alk Phosph 104. - Anemia. HH 9.7/30.5. PLAN: - Plan for egd today - Obtain consents - NPO - Cont. PPI - Cont. Miralax - AFP level - Hepatitis profile - WILLIE, ASMA, AMA - Ferritin, Iron Saturation - Alpha 1 Antitrypsin, Ceruloplasmin - Monitor CBC, LFT - GS following - Magnesium citrate x 1 now - SSE x 2 now - Miralax 17 gram po daily - CBC, CMP in am - GS following - No CBD on MRCP, no need for ERCP. - Supportive care - Further recommendations to follow based on results of above - Pt seen and examined by Dr. Almazan and myself and this note is written on his behalf Marifer Desouza May 27, 2016 08:57
[2016-05-27] MEDS: POLYETHYLENE GLYCOL 17 GM PKG PO SCH (09:00)
[2016-05-27] MEDS: AMOXICILLIN/CLAVULANATE K 500 MG TAB PO SCH ×2 (09:15→20:32)
[2016-05-27] MEDS: PANTOPRAZOLE SOD 20 MG DELAYED RELEASE TAB PO SCH (09:15)
[2016-05-27] MEDS: SODIUM CHLORIDE 0.9% FLUSH 10 ML FLUSH IV FLUSH SCH ×2 (09:17→20:33)
[2016-05-27] MEDS: HYDROmorphone HCL PF 1 MG/ML VIAL IV PUSH PRN ×2 (10:04→18:54)
--- NOTE | 2016-05-27 11:25 | HHI.PR ---
Subjective Remarks The patient says that her stomach is much better. She says it is softer and not as distended. She said she has had 3 bowel movements. She does not have any further abdominal pain. She wanted to know what the endoscopy was for. She did complain of some pain around her buttocks. Objective Vitals Vital Signs Date Time Temp Pulse Resp B/P Pulse Ox O2 Delivery O2 Flow Rate FiO2 05/27/16 07:39 98.0 100 20 129/57 95 05/27/16 05:36 98.0 74 21 128/74 98 05/27/16 01:32 98.4 87 18 121/68 97 05/26/16 22:00 110 05/26/16 20:00 97.7 110 18 106/49 94 05/26/16 17:12 87 05/26/16 15:18 95.7 77 18 126/61 99 05/26/16 11:32 96.2 98 18 128/68 97 I/O 05/26/16 05/26/16 05/26/16 05/27/16 05/27/16 05/27/16 07:00 15:00 23:00 07:00 15:00 23:00 Intake Total 580 ml Balance 580 ml Intake Oral 580 ml # Voids 1 # Bowel Movements 1 3 Result Diagram: 05/27/16 0542 05/27/16 0542 Imaging Last Impressions Gall Bladder Ultrasound 05/26/16 0805 Signed Impressions: Service Date/Time: Thursday, May 26, 2016 09:27 - CONCLUSION: 1. Distended gallbladder containing stones. No wall thickening or pericholecystic fluid is present. However, there is a positive sonographic Pacheco sign. Findings therefore are suspicious for acute gallbladder obstruction/acute cholecystitis. 2. Dilated common bile duct. In retrospective review of the recent CT there is a questionable calcified tiny stone in the distal common bile duct near the ampulla. This may explain the intrahepatic hepatic bile duct dilatation. Van Kidd MD Chest X-Ray 05/26/16431 Signed Impressions: Service Date/Time: Thursday, May 26, 2016 04:58 - CONCLUSION: Stable chest with left basilar scarring and previous CABG. Mark Holguin MD Abdomen/Pelvis CT 05/26/16431 Signed Impressions: Service Date/Time: Thursday, May 26, 2016 04:50 - CONCLUSION: 1. Distended gallbladder containing gallstones. No inflammatory changes. This may be source of patient's pain. 2. Uterine leiomyomas. 3. Left basilar atelectasis/ scarring. Mark Holguin MD Cholangiopancreatography MRI 05/26/16 0000 Signed Impressions: Service Date/Time: Thursday, May 26, 2016 13:24 - CONCLUSION: Mild to moderate biliary ductal dilatation without evidence of duct stone or mass to explain this. Mildly prominent retroperitoneal lymph nodes. Van Gautam MD Objective Remarks GENERAL: This is a well-nourished, well-developed patient, in no apparent distress. SKIN: left upper arm abrasion with erythema. HEAD: Atraumatic. Normocephalic. . EYES: Pupils equal round and reactive. Extraocular motions intact. ENT: Nose without bleeding, purulent drainage or septal hematoma. Airway patent. NECK: Trachea midline. No JVD or lymphadenopathy. Supple CARDIOVASCULAR: Regular rate and rhythm without murmurs, gallops, or rubs. RESPIRATORY: Clear to auscultation. Breath sounds equal bilaterally. No wheezes , rales, or rhonchi. GASTROINTESTINAL: Abdomen soft, nontender, nondistended. No hepato-splenomegaly , or palpable masses. No guarding. MUSCULOSKELETAL: Bilateral lower Extremities with +1 edema. No joint tenderness , effusion, or edema noted. No calf tenderness. NEUROLOGICAL: Awake and alert. Motor and sensory grossly within normal limits. Five out of 5 muscle strength in all muscle groups. Normal speech. PSYCH: Mood and affect appropriate. Medications and IVs Current Medications Medications (Trade) Dose Ordered Sig/Micky Route Start Time Stop Time Status Last Admin (NS Flush) 2 ml UNSCH PRN IV FLUSH 05/26/16 06:45 (NS Flush) 2 ml BID IV FLUSH 05/26/16 09:00 05/27/16 09:17 (Zofran Inj) 4 mg Q6H PRN IVP 05/26/16 06:45 05/26/16 22:37 (Narcan Inj) 0.4 mg UNSCH PRN IV 05/26/16 06:45 (Lipitor) 10 mg HS PO 05/26/16 21:00 05/26/16 21:24 (Neurontin) 100 mg HS PO 05/26/16 21:00 05/26/16 21:24 (Imdur) 30 mg DAILY@07 PO 05/26/16 12:00 05/27/16 06:03 (Protonix) 20 mg DAILY PO 05/26/16 09:00 05/27/16 09:15 (D50w (Vial) Inj) 25 ml UNSCH PRN IV PUSH 05/26/16 08:45 (Glucagon Inj) 1 mg UNSCH PRN OTHER 05/26/16 08:45 (Augmentin) 500 mg Q12HR PO 05/26/16 21:00 05/31/16 20:59 05/27/16 09:15 (Dilaudid Pf Inj) 0.5 mg Q4H PRN IV PUSH 05/26/16 18:45 05/27/16 10:04 Polyethylene Glycol 17 gm 17 gm DAILY PO 05/26/16 16:15 05/26/16 16:41 (D5W-NS 1000 ml Inj) 1,000 ml @ 75 mls/hr [id number] IV 05/27/16 11:15 05/28/16 13:54 Current Medications Medications (Trade) Dose Ordered Sig/Micky Route Start Time Stop Time Status Last Admin (NS Flush) 2 ml UNSCH PRN IV FLUSH 05/26/16 06:45 (NS Flush) 2 ml BID IV FLUSH 05/26/16 09:00 05/27/16 09:17 (Zofran Inj) 4 mg Q6H PRN IVP 05/26/16 06:45 05/26/16 22:37 (Narcan Inj) 0.4 mg UNSCH PRN IV 05/26/16 06:45 (Lipitor) 10 mg HS PO 05/26/16 21:00 05/26/16 21:24 (Neurontin) 100 mg HS PO 05/26/16 21:00 05/26/16 21:24 (Imdur) 30 mg DAILY@07 PO 05/26/16 12:00 05/27/16 06:03 (Protonix) 20 mg DAILY PO 05/26/16 09:00 05/27/16 09:15 (D50w (Vial) Inj) 25 ml UNSCH PRN IV PUSH 05/26/16 08:45 (Glucagon Inj) 1 mg UNSCH PRN OTHER 05/26/16 08:45 (Augmentin) 500 mg Q12HR PO 05/26/16 21:00 05/31/16 20:59 05/27/16 09:15 (Dilaudid Pf Inj) 0.5 mg Q4H PRN IV PUSH 05/26/16 18:45 05/27/16 10:04 Polyethylene Glycol 17 gm 17 gm DAILY PO 05/26/16 16:15 05/26/16 16:41 (D5W-NS 1000 ml Inj) 1,000 ml @ 75 mls/hr [id number] IV 05/27/16 11:15 05/28/16 13:54 A/P Problem List: (1) Acute cholecystitis ICD Code: K81.0 Status: Acute (2) Fall ICD Code: W19.XXXA Status: Chronic (3) Abrasion ICD Code: T14.8 Status: Acute (4) Diabetes mellitus ICD Code: E11.9 Status: Chronic (5) Hypertension ICD Code: I10 Status: Chronic (6) Hyperlipidemia ICD Code: E78.5 Status: Chronic Assessment and Plan 85 y/o female with a history of HTN, HLD, DM, Neuropathy, arthritis, vertigo, and gerd presented to the ED with complaints of Abdominal pain and bloating. Acute Cholecystitis/ Abdominal pain Gallbladder US shows a distended gallbladder containing stones. No wall thickening or pericholecystic fluid is present. However, there is a positive sonographic Pacheco sign and a dilated common bile duct. Abdomen/Pelvis CT shows a distended gallbladder containing gallstones; No inflammatory changes; Uterine leiomyomas and Left basilar atelectasis/scarring. General Surgery was consulted and they consulted GI. MRCP shows mild to moderate biliary ductal dilatation without evidence of duct stone or mass to explain this; Mildly prominent retroperitoneal lymph nodes. No indication for ERCP per GI. The pt's constipation resolved with an aggressive bowel regimen. - Pain management with a bowel regimen. - NPO for now with IVFs. - EGD per GI 05/27. - continue PPI. Anemia Unsure of etiology. - follow CBC and transfuse as needed. - EGD per GI pending. - PPI. - Hemoccult requested. Acute renal insufficiency May be pre-renal. - IVFs. - follow BMP. Fall/ upper extremity abrasion 1 week ago the patient suffered a wound on her left arm. According to patients daughter she just received a rx for Augmentin from her PCP. - Fall precautions. - Restart Augmentin 500mg PO BID. - Consult wound care. - PT eval. Diabetes Chronic. - Accu checks with SSI. - on D5 NS while NPO. HTN Well controlled 05/27. - hold medications for now. DVT prophylaxis: SCDs. Discharge Planning Awaiting further GI evaluation. Problem Qualifiers (1) Diabetes mellitus: (2) Hyperlipidemia: Qualified Code: E78.2 - Mixed hyperlipidemia Benedict Crump DO May 27, 2016 11:25
[2016-05-27 11:35] VITALS: BP 129/57; PULSE 100; RESP 20; TEMP 98; O2SAT 95
[2016-05-27] MEDS ORDERED: NITROGLYCERIN 0.4 MG SL 25 TABS/BTL SL ONE (13:15)
[2016-05-27 14:36] VITALS: BP 140/68; PULSE 87; RESP 20; TEMP 98; O2SAT 95
[2016-05-27 14:59] LABS: FERRITIN 33 NG/ML (8-252); TRANSFERRIN IRON PROFILE 268 MG/DL (200-360)
[2016-05-27] MEDS: DEXT 5%-NACL 0.9% 1000 ML INJ 1,000 ML IV SCH (16:39)
--- NOTE | 2016-05-27 17:33 | HHI.PR ---
Subjective Subjective Notes Eating dinner Abdominal pain essentially resolved Objective Vitals/I&O Vital Signs Date Time Temp Pulse Resp B/P Pulse Ox O2 Delivery O2 Flow Rate FiO2 05/27/16 14:36 98.0 87 20 140/68 95 05/26/16 06:29 Room Air Labs Laboratory Tests Test 05/27/16 05/27/16 05:42 14:18 White Blood Count 8.5 Red Blood Count 3.66 Hemoglobin 9.7 Hematocrit 30.5 Mean Corpuscular Volume 83.4 Mean Corpuscular Hemoglobin 26.4 Mean Corpuscular Hemoglobin 31.7 Concent Red Cell Distribution Width 15.9 Platelet Count 126 Mean Platelet Volume 11.0 Neutrophils (%) (Auto) 72.1 Lymphocytes (%) (Auto) 18.8 Monocytes (%) (Auto) 8.2 Eosinophils (%) (Auto) 0.4 Basophils (%) (Auto) 0.5 Neutrophils # (Auto) 6.2 Lymphocytes # (Auto) 1.6 Monocytes # (Auto) 0.7 Eosinophils # (Auto) 0.0 Basophils # (Auto) 0.0 CBC Comment DIFF FINAL Differential Comment Sodium Level 138 Potassium Level 4.6 Chloride Level 101 Carbon Dioxide Level 29.3 Anion Gap 8 Blood Urea Nitrogen 23 Creatinine 1.07 Estimat Glomerular Filtration 49 Rate Random Glucose 117 Calcium Level 8.5 Total Bilirubin 0.9 Aspartate Amino Transf 165 (AST/SGOT) Alanine Aminotransferase 158 (ALT/SGPT) Alkaline Phosphatase 104 Total Protein 6.8 Albumin 3.1 Iron Level 90 Total Iron Binding Capacity 375 Percent Iron Saturation 24.0 Ferritin 33 Troponin I LESS THAN 0.02 Tumor Marker Alpha Fetoprotein 1.3 Cardiovascular: Regular Lungs: Clear Abdomen: Non-distended, Non-tender Extremities: No edema A/P Assessment and Plan 85 year old female with acute cholecystitis -EGD today -Diet as tolerated -Pain control -Plan to get cardiology evaluation -Possible lap axel on Wednesday if cleared by Cardiology Attending Note - Dr. Sands Pain resolved; await cardiology input. Await EGD results. The exam, history, and the medical decision-making described in the above note were completed with the assistance of the mid-level provider. I reviewed and agree with the findings presented. I attest that I had a [id number] encounter with the patient on the same day, and personally performed and documented my assessment and findings in the medical record. Selina Benoit May 27, 2016 17:33 Benedict Sands MD May 28, 2016 15:09
[2016-05-27] MEDS ORDERED: ASPIRIN 325 MG TAB PO ONE (18:45)
[2016-05-27] MEDS: GABAPENTIN 100 MG CAP PO SCH (20:32)
[2016-05-27] MEDS: ATORVASTATIN 10 MG TAB PO SCH (20:32)
[2016-05-27] MEDS: PANTOPRAZOLE SOD 40 MG DELAYED RELEASE TAB PO SCH (20:32)
[2016-05-28 04:56] LABS: BICARBONATE 28.4 MEQ/L (21.0-32.0); MAGNESIUM 2.1 MG/DL (1.5-2.5); POTASSIUM 4.5 MEQ/L (3.5-5.1)
[2016-05-28 05:06] LABS: AST (GOT) 91 U/L (15-37)
[2016-05-28 05:09] LABS: ALKALINE PHOSPHATASE 90 U/L (45-117); ALT (GPT) 99 U/L (10-53); INDIRECT BILIRUBIN 0.5 MG/DL (0.0-0.8); TOTAL BILIRUBIN ADULT 0.7 MG/DL (0.2-1.0)
[2016-05-28 05:43] VITALS: BP 140/63; PULSE 94; RESP 18; TEMP 98.8; O2SAT 94
[2016-05-28] MEDS: ISOSORBIDE MONONITRATE 30 MG TAB PO SCH (06:32)
[2016-05-28] MEDS: INSULIN ASPART SUPPLEMENTAL SCALE SQ SCH ×4 (06:32→20:54)
[2016-05-28 08:00] VITALS: BP 128/59; PULSE 102; RESP 18; TEMP 98; O2SAT 92
[2016-05-28 08:41] LABS: AUTOMATED NEUTROPHIL # 5.4 TH/MM3 (1.8-7.7); BASOPHIL # 0.1 TH/MM3 (0-0.2); BASOPHIL % 0.8 % (0.0-2.0); EOSINOPHIL # 0.2 TH/MM3 (0-0.4); EOSINOPHIL % 2.6 % (0.0-4.0); HEMATOCRIT 29.1 % (35.0-46.0); HEMO FLAGS DIFF FINAL; LYMPH % 17.7 % (9.0-44.0); LYMPHOCYTE # 1.3 TH/MM3 (1.0-4.8); MEAN CELL VOLUME 83.2 FL (80.0-100.0); MEAN CORPUSCULAR HEMOGLOBIN 27.1 PG (27.0-34.0); MEAN CORPUSCULAR HGB CONC 32.6 % (32.0-36.0); MONO % 7.1 % (0.0-8.0); NEUT % 71.8 % (16.0-70.0); PLATELET COUNT 118 TH/MM3 (150-450); RED CELL DISTRIBUTION WIDTH 16.1 % (11.6-17.2); WHITE BLOOD COUNT 7.5 TH/MM3 (4.0-11.0)
[2016-05-28] MEDS: PANTOPRAZOLE SOD 40 MG DELAYED RELEASE TAB PO SCH ×2 (09:36→20:54)
[2016-05-28] MEDS: POLYETHYLENE GLYCOL 17 GM PKG PO SCH (09:36)
[2016-05-28] MEDS: AMOXICILLIN/CLAVULANATE K 500 MG TAB PO SCH ×2 (09:36→20:53)
[2016-05-28] MEDS: SODIUM CHLORIDE 0.9% FLUSH 10 ML FLUSH IV FLUSH SCH ×2 (09:36→20:54)
[2016-05-28] MEDS: HYDROmorphone HCL PF 1 MG/ML VIAL IV PUSH PRN ×3 (09:36→23:10)
--- NOTE | 2016-05-28 09:54 | MB ---
cc: CORRINA SERNA DATE OF 1930 DATE OF CONSULTATION May 28, 2016 REASON FOR CONSULTATION Preoperative evaluation for GI surgery. HISTORY OF PRESENT ILLNESS 85-year-old female with past medical history significant for hypertension, hyperlipidemia, diabetes, diabetic neuropathy, CAD status post bypass surgery who presented to the hospital with abdominal pain and bloating. On further examination in the emergency department she was found to have constipation as well as a distended gallbladder containing stones. She was seen by GI as well as General Surgery for possible cholecystectomy. Cardiology has been consulted for preoperative evaluation/CCY. The patient has no complaints of chest pain. She lives by herself. She ambulates without any difficulty at home. She does everything by herself. Here EKG has been unremarkable, normal sinus rhythm with no acute ST changes. Cardiac enzymes x 3 have been negative. REVIEW OF SYSTEMS Negative except for what is mentioned in the HPI. PAST MEDICAL HISTORY 1. Hypertension. 2. Hyperlipidemia. 3. Diabetes. 4. CABG. 5. GERD. CARDIAC HOME MEDICATIONS 1. Lipitor 10 mg p.o. q.h.s. 1. Atenolol 50 mg p.o. daily. 2. Losartan 50 mg p.o. daily. 3. Isosorbide 30 mg p.o. daily. ALLERGIES CONTRAST. SHELLFISH. IODINE. CODEINE. FAMILY HISTORY Noncontributory. PHYSICAL EXAMINATION VITAL SIGNS: Temperature 98, pulse 94, respiratory rate 18, blood pressure 140/ 63, O2 sat 94%. GENERAL: She is awake, alert, oriented x 3, in no acute distress. NECK: No JVD, no carotid bruits. HEART: Regular rate and rhythm. No murmurs, rubs or gallops. LUNGS: Clear to auscultation bilaterally. ABDOMEN: Soft. Tenderness. EXTREMITIES: No cyanosis or edema. Pulses throughout. DATA CBC: Hemoglobin 9.5, hematocrit 29, platelets 118. INR 1. CHEMISTRIES: Sodium 137, potassium 4.5, BUN 19, creatinine 0.95. Troponin less than 0.02 x 3. AST 91, ALT 99. IMAGING STUDIES Gallbladder ultrasound shows distended gallbladder containing stones. CT ABDOMEN Distended gallbladder containing gallstones. Dilated common duct. There is a questionable calcified tiny stone in the distal common bile duct. ECHOCARDIOGRAM Done at this institution in 2006 shows normal LV systolic function. ASSESSMENT AND PLAN 85-year-old female with known coronary artery disease status post bypass surgery as well as hypertension, hyperlipidemia, diabetes who presented with abdominal pain and bloating in the setting of cholecystitis/constipation. Yesterday she had good bowel movement. Se reports feeling better from the abdominal discomfort. She remains afebrile and hemodynamically stable. She has no cardiovascular complaints. Good functional capacity with no active cardiac conditions and undergoing an intermediate risk procedure. EKG and cardiac enzymes are unremarkable. Given that the patient has no active cardiac conditions and she has good functional capacity for a 85-year-old lady, I do not recommend to pursue any cardiac workup at this time. Continue her home medications for coronary artery disease and follow up with her childcare provider upon discharge. Thank you for the opportunity to take part in the care of this patient. We will be available on a p.r.n. basis for any other questions or concerns. MD VIOLETA Levi/MAYNOR /9:06 AM /9:37 AM JULIO CESAR
[2016-05-28] MEDS: DEXT 5%-NACL 0.9% 1000 ML INJ 1,000 ML IV SCH (10:44)
[2016-05-28 12:00] VITALS: BP 128/56; PULSE 96; RESP 18; TEMP 98.1; O2SAT 92
[2016-05-28] MEDS: DOCUSATE SODIUM 100 MG CAP PO SCH ×2 (13:16→20:54)
[2016-05-28] MEDS: SENNOSIDES 8.6 MG TAB PO SCH (13:16)
--- NOTE | 2016-05-28 15:15 | HHI.GIFU ---
Subjective Remarks Resting in bed. Having a little more bloating today. States no bm today- states because no one will give her a dose of MOM and is requesting this. States she does not want to go home by herself over the weekend and have no way to get back to the doctor. No GI bleeding. Had lunch. (Marifer Desouza) Objective Vitals I&O Vital Signs Date Time Temp Pulse Resp B/P Pulse Ox O2 Delivery O2 Flow Rate FiO2 05/28/16 12:00 98.1 96 18 128/56 92 05/28/16 08:00 98.0 102 18 128/59 92 05/28/16 05:43 98.8 94 18 140/63 94 05/27/16 20:58 22 I/O 05/27/16 05/27/16 05/27/16 05/28/16 05/28/16 05/28/16 07:00 15:00 23:00 07:00 15:00 23:00 Intake Total 240 ml Balance 240 ml Intake Oral 240 ml # Bowel Movements 3 4 Laboratory Laboratory Tests Test 05/27/16 05/28/16 05/28/16 19:42 03:36 08:00 Troponin I LESS THAN 0.02 LESS THAN 0.02 Sodium Level 137 Potassium Level 4.5 Chloride Level 102 Carbon Dioxide Level 28.4 Anion Gap 7 Blood Urea Nitrogen 19 Creatinine 0.95 Estimat Glomerular Filtration 56 Rate Random Glucose 141 Calcium Level 7.8 Phosphorus Level 2.7 Magnesium Level 2.1 Total Bilirubin 0.7 Direct Bilirubin 0.2 Indirect Bilirubin 0.5 Aspartate Amino Transf 91 (AST/SGOT) Alanine Aminotransferase 99 (ALT/SGPT) Alkaline Phosphatase 90 Total Protein 5.9 Albumin 3.1 White Blood Count 7.5 Red Blood Count 3.50 Hemoglobin 9.5 Hematocrit 29.1 Mean Corpuscular Volume 83.2 Mean Corpuscular Hemoglobin 27.1 Mean Corpuscular Hemoglobin 32.6 Concent Red Cell Distribution Width 16.1 Platelet Count 118 Mean Platelet Volume 10.6 Neutrophils (%) (Auto) 71.8 Lymphocytes (%) (Auto) 17.7 Monocytes (%) (Auto) 7.1 Eosinophils (%) (Auto) 2.6 Basophils (%) (Auto) 0.8 Neutrophils # (Auto) 5.4 Lymphocytes # (Auto) 1.3 Monocytes # (Auto) 0.5 Eosinophils # (Auto) 0.2 Basophils # (Auto) 0.1 CBC Comment DIFF FINAL Differential Comment Imaging Last Impressions Gall Bladder Ultrasound 05/26/16 0805 Signed Impressions: Service Date/Time: Thursday, May 26, 2016 09:27 - CONCLUSION: 1. Distended gallbladder containing stones. No wall thickening or pericholecystic fluid is present. However, there is a positive sonographic Pacheco sign. Findings therefore are suspicious for acute gallbladder obstruction/acute cholecystitis. 2. Dilated common bile duct. In retrospective review of the recent CT there is a questionable calcified tiny stone in the distal common bile duct near the ampulla. This may explain the intrahepatic hepatic bile duct dilatation. Van Kidd MD Chest X-Ray 05/26/16431 Signed Impressions: Service Date/Time: Thursday, May 26, 2016 04:58 - CONCLUSION: Stable chest with left basilar scarring and previous CABG. Mark Holguin MD Abdomen/Pelvis CT 05/26/16431 Signed Impressions: Service Date/Time: Thursday, May 26, 2016 04:50 - CONCLUSION: 1. Distended gallbladder containing gallstones. No inflammatory changes. This may be source of patient's pain. 2. Uterine leiomyomas. 3. Left basilar atelectasis/ scarring. Mark Holguin MD Cholangiopancreatography MRI 05/26/16 0000 Signed Impressions: Service Date/Time: Thursday, May 26, 2016 13:24 - CONCLUSION: Mild to moderate biliary ductal dilatation without evidence of duct stone or mass to explain this. Mildly prominent retroperitoneal lymph nodes. Van Gautam MD Physical Exam HEENT: Normocephalic; atraumatic; no jaundice. CHEST: Chest is clear to auscultation and percussion. CARDIAC: RR. ABDOMEN: Soft, mildly distended, mild diffuse tenderness, no hepatosplenomegaly ; bowel sounds are present in all four quadrants. EXTREMITIES: No clubbing, cyanosis, or edema. SKIN: Normal; no rash; no jaundice. 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 (Marifer Desouza) Assessment and Plan Plan ASSESSMENT: - Constipation, abdominal distention. Long hx of constipation- states no bm for a few days, took MOM yesterday, had very small amount of loose stool, but says she did not pass any significant amount of stool. No hx of colonoscopy. S/P SSE x 2, Magnesium citrate. Miralax daily. Pt had multiple bowel movements after that and her symptoms improved yesterday, but with more distention today and requesting MOM. - Abdominal pain, unclear if related to constipation/distention vs. GB etiology. She is having diffuse abdominal tenderness today. - Cholelithiasis with questionable choledocholithiasis. Abdomen/Pelvis CT (05/26)----> 1. Distended gallbladder containing gallstones. No inflammatory changes. This may be source of patient's pain. 2. Uterine leiomyomas. 3. Left basilar atelectasis/scarring. Gall Bladder Ultrasound *(05/26/16)---> 1. Distended gallbladder containing stones. No wall thickening or pericholecystic fluid is present. However, there is a positive sonographic Pacheco sign. Findings therefore are suspicious for acute gallbladder obstruction/acute cholecystitis. 2. Dilated common bile duct. In retrospective review of the recent CT there is a questionable calcified tiny stone in the distal common bile duct near the ampulla. This may explain the intrahepatic hepatic bile duct dilatation. MRCP (05/26/16)-----> Mild to moderate biliary ductal dilatation without evidence of duct stone or mass to explain this. Mildly prominent retroperitoneal lymph nodes. LFTs and Lipase normal. GS following. No choledocholithiasis on MRCP. T Bili 0.7, AST 91, ALT 99, Alk Phosph 90 No RUQ pain. WBC normal. Afebrile. GS following, possible lap axel tomorrow. - Elevated LFTs. T Bili 0.7, AST 91, ALT 99, Alk Phosph 90. Hepatitis pending, WILLIE pending, AMA pending, ASMA negative, AFP 1.3. Alpha 1 Antitrypsin pending, Ceruloplasmin pending. GS following, for possible lap axel tomorrow. - Anemia. HH 9.5/29.1. - Atypcial cp. EGD cancelled secondary to chest pain. Pt states she has not had any chest pain and that she gets this at times, but not now. S/P cardiology evaluation, no further workup. PLAN: - REGINALD - Cont. PPI - Cont. Miralax - MOM x 1 - Await liver workup - WILLIE, ASMA, AMA - Monitor CBC, LFT - Supportive care - GS following, possible lap axel in am. - Further recommendations to follow based on results of above - Pt seen and examined by Dr. Almazan and myself and this note is written on his behalf (Marifer Desouza) Marifer Desouza May 28, 2016 15:15 Hawa Almazan MD May 28, 2016 19:43
--- NOTE | 2016-05-28 15:23 | HHI.PR ---
Subjective Subjective Notes Resting in bed Would prefer to have surgery as inpatient for gallbladder Objective Vitals/I&O Vital Signs Date Time Temp Pulse Resp B/P Pulse Ox O2 Delivery O2 Flow Rate FiO2 05/28/16 12:00 98.1 96 18 128/56 92 05/26/16 06:29 Room Air Labs Laboratory Tests Test 05/27/16 05/28/16 05/28/16 19:42 03:36 08:00 Troponin I LESS THAN 0.02 LESS THAN 0.02 Sodium Level 137 Potassium Level 4.5 Chloride Level 102 Carbon Dioxide Level 28.4 Anion Gap 7 Blood Urea Nitrogen 19 Creatinine 0.95 Estimat Glomerular Filtration 56 Rate Random Glucose 141 Calcium Level 7.8 Phosphorus Level 2.7 Magnesium Level 2.1 Total Bilirubin 0.7 Direct Bilirubin 0.2 Indirect Bilirubin 0.5 Aspartate Amino Transf 91 (AST/SGOT) Alanine Aminotransferase 99 (ALT/SGPT) Alkaline Phosphatase 90 Total Protein 5.9 Albumin 3.1 White Blood Count 7.5 Red Blood Count 3.50 Hemoglobin 9.5 Hematocrit 29.1 Mean Corpuscular Volume 83.2 Mean Corpuscular Hemoglobin 27.1 Mean Corpuscular Hemoglobin 32.6 Concent Red Cell Distribution Width 16.1 Platelet Count 118 Mean Platelet Volume 10.6 Neutrophils (%) (Auto) 71.8 Lymphocytes (%) (Auto) 17.7 Monocytes (%) (Auto) 7.1 Eosinophils (%) (Auto) 2.6 Basophils (%) (Auto) 0.8 Neutrophils # (Auto) 5.4 Lymphocytes # (Auto) 1.3 Monocytes # (Auto) 0.5 Eosinophils # (Auto) 0.2 Basophils # (Auto) 0.1 CBC Comment DIFF FINAL Differential Comment Cardiovascular: Regular Lungs: Clear Abdomen: Non-distended, Non-tender Extremities: No edema A/P Assessment and Plan 85 year old female with acute cholecystitis -EGD tomorrow -Diet as tolerated -Pain control -Cardiology clear for surgery -Plan for lap axel on Wednesday at 0930 -Obtain consents -NPO after MN on Wednesday Attending Note - Dr. Wicho Thompson benign For EGD 05/29 Wants to have surgery this hospitalization The exam, history, and the medical decision-making described in the above note were completed with the assistance of the mid-level provider. I reviewed and agree with the findings presented. I attest that I had a [id number] encounter with the patient on the same day, and personally performed and documented my assessment and findings in the medical record. Selina Benoit May 28, 2016 15:23 Benedict Sands MD May 29, 2016 16:29
--- NOTE | 2016-05-28 15:26 | HHI.PR ---
Subjective Remarks The patient was resting in bed. She said she had diffuse pain all over her body. She says she is very weak. She was disappointed to hear that she would not be getting surgery tomorrow. She was about to work with physical therapy. Discussed with nursing and Gen. surgery. Objective Vitals Vital Signs Date Time Temp Pulse Resp B/P Pulse Ox O2 Delivery O2 Flow Rate FiO2 05/28/16 12:00 98.1 96 18 128/56 92 05/28/16 08:00 98.0 102 18 128/59 92 05/28/16 05:43 98.8 94 18 140/63 94 05/27/16 20:58 22 I/O 05/27/16 05/27/16 05/27/16 05/28/16 05/28/16 05/28/16 07:00 15:00 23:00 07:00 15:00 23:00 Intake Total 240 ml Balance 240 ml Intake Oral 240 ml # Bowel Movements 3 4 Result Diagram: 05/28/16 0800 05/28/16 0336 Imaging Last Impressions Gall Bladder Ultrasound 05/26/16 0805 Signed Impressions: Service Date/Time: Thursday, May 26, 2016 09:27 - CONCLUSION: 1. Distended gallbladder containing stones. No wall thickening or pericholecystic fluid is present. However, there is a positive sonographic Pacheco sign. Findings therefore are suspicious for acute gallbladder obstruction/acute cholecystitis. 2. Dilated common bile duct. In retrospective review of the recent CT there is a questionable calcified tiny stone in the distal common bile duct near the ampulla. This may explain the intrahepatic hepatic bile duct dilatation. Van Kidd MD Chest X-Ray 05/26/16431 Signed Impressions: Service Date/Time: Thursday, May 26, 2016 04:58 - CONCLUSION: Stable chest with left basilar scarring and previous CABG. Mark Holguin MD Abdomen/Pelvis CT 05/26/16431 Signed Impressions: Service Date/Time: Thursday, May 26, 2016 04:50 - CONCLUSION: 1. Distended gallbladder containing gallstones. No inflammatory changes. This may be source of patient's pain. 2. Uterine leiomyomas. 3. Left basilar atelectasis/ scarring. Mark Holguin MD Cholangiopancreatography MRI 05/26/16 0000 Signed Impressions: Service Date/Time: Thursday, May 26, 2016 13:24 - CONCLUSION: Mild to moderate biliary ductal dilatation without evidence of duct stone or mass to explain this. Mildly prominent retroperitoneal lymph nodes. Van Gautam MD Objective Remarks GENERAL: This is a well-nourished, well-developed patient, in no apparent distress. SKIN: left upper arm abrasion with erythema. HEAD: Atraumatic. Normocephalic. . EYES: Pupils equal round and reactive. Extraocular motions intact. ENT: Nose without bleeding, purulent drainage or septal hematoma. Airway patent. NECK: Trachea midline. No JVD or lymphadenopathy. Supple CARDIOVASCULAR: Regular rate and rhythm without murmurs, gallops, or rubs. RESPIRATORY: Clear to auscultation. Breath sounds equal bilaterally. No wheezes , rales, or rhonchi. GASTROINTESTINAL: Abdomen soft, nontender, nondistended. No hepato-splenomegaly , or palpable masses. No guarding. MUSCULOSKELETAL: Bilateral lower Extremities with +1 edema. No joint tenderness , effusion, or edema noted. NEUROLOGICAL: Awake and alert. Motor and sensory grossly within normal limits. Five out of 5 muscle strength in all muscle groups. Normal speech. PSYCH: Mood and affect appropriate. Medications and IVs Current Medications Medications (Trade) Dose Ordered Sig/Micky Route Start Time Stop Time Status Last Admin (NS Flush) 2 ml UNSCH PRN IV FLUSH 05/26/16 06:45 (NS Flush) 2 ml BID IV FLUSH 05/26/16 09:00 05/28/16 09:36 (Zofran Inj) 4 mg Q6H PRN IVP 05/26/16 06:45 05/26/16 22:37 (Narcan Inj) 0.4 mg UNSCH PRN IV 05/26/16 06:45 (Lipitor) 10 mg HS PO 05/26/16 21:00 05/27/16 20:32 (Neurontin) 100 mg HS PO 05/26/16 21:00 05/27/16 20:32 (Imdur) 30 mg DAILY@07 PO 05/26/16 12:00 05/28/16 06:32 (D50w (Vial) Inj) 25 ml UNSCH PRN IV PUSH 05/26/16 08:45 (Glucagon Inj) 1 mg UNSCH PRN OTHER 05/26/16 08:45 (Augmentin) 500 mg Q12HR PO 05/26/16 21:00 05/31/16 20:59 05/28/16 09:36 (Dilaudid Pf Inj) 0.5 mg Q4H PRN IV PUSH 05/26/16 18:45 05/28/16 09:36 (Miralax) 17 gm DAILY PO 05/26/16 16:15 05/28/16 09:36 (Protonix) 40 mg BID PO 05/27/16 21:00 05/28/16 09:36 (Colace) 100 mg BID PO 05/28/16 12:15 05/28/16 13:16 (Senokot) 17.2 mg DAILY PO 05/28/16 12:15 05/28/16 13:16 (Milk Of Magnpablo Liq) 30 ml DAILY PRN PO 05/28/16 12:15 A/P Problem List: (1) Acute cholecystitis ICD Code: K81.0 Status: Acute (2) Fall ICD Code: W19.XXXA Status: Chronic (3) Abrasion ICD Code: T14.8 Status: Acute (4) Diabetes mellitus ICD Code: E11.9 Status: Chronic (5) Hypertension ICD Code: I10 Status: Chronic (6) Hyperlipidemia ICD Code: E78.5 Status: Chronic Assessment and Plan 85 y/o female with a history of HTN, HLD, DM, Neuropathy, arthritis, vertigo, and gerd presented to the ED with complaints of Abdominal pain and bloating. Acute Cholecystitis/ Abdominal pain Gallbladder US shows a distended gallbladder containing stones. No wall thickening or pericholecystic fluid is present. However, there is a positive sonographic Pacheco sign and a dilated common bile duct. Abdomen/Pelvis CT shows a distended gallbladder containing gallstones; No inflammatory changes; Uterine leiomyomas and Left basilar atelectasis/scarring. General Surgery was consulted and they consulted GI. MRCP shows mild to moderate biliary ductal dilatation without evidence of duct stone or mass to explain this; Mildly prominent retroperitoneal lymph nodes. No indication for ERCP per GI. The pt's constipation resolved with an aggressive bowel regimen. - Pain management with a bowel regimen. - continue PPI. - anticipate cholecystectomy on Wednesday per general surgery. Atypical chest pain Likely secondary to cholecystitis. EKG and troponins unremarkable. Cardiology consult appreciated. - The patient has been cleared for surgery. - Pain control as needed. Anemia Unsure of etiology. - follow CBC and transfuse as needed. - PPI. - Hemoccult requested. Acute renal insufficiency May be pre-renal. - IVFs. - follow BMP. Stable. Fall/ upper extremity abrasion 1 week ago the patient suffered a wound on her left arm. According to patients daughter she just received a rx for Augmentin from her PCP. - Fall precautions. - Restart Augmentin 500mg PO BID. - Consult wound care. - PT eval. Diabetes Chronic. Glucose is well-controlled 05/28. - Accu checks with SSI. HTN Well controlled 05/28. - hold medications for now. DVT prophylaxis: SCDs. Discharge Planning Anticipating surgery on Wednesday. Problem Qualifiers (1) Diabetes mellitus: (2) Hyperlipidemia: Qualified Code: E78.2 - Mixed hyperlipidemia Benedict Crump DO May 28, 2016 15:26
[2016-05-28 16:00] VITALS: BP 121/57; PULSE 86; RESP 16; TEMP 97.6; O2SAT 95
[2016-05-28] MEDS: MAGNESIUM HYDROXIDE SUSP 30 ML CUP PO PRN (17:23)
[2016-05-28] MEDS: GABAPENTIN 100 MG CAP PO SCH (20:54)
[2016-05-28] MEDS: ATORVASTATIN 10 MG TAB PO SCH (20:54)
[2016-05-29 04:22] VITALS: BP 121/72; PULSE 78; RESP 18; TEMP 97.9; O2SAT 97
[2016-05-29] MEDS: INSULIN ASPART SUPPLEMENTAL SCALE SQ SCH ×4 (06:31→21:00)
[2016-05-29] MEDS: ISOSORBIDE MONONITRATE 30 MG TAB PO SCH (07:18)
[2016-05-29 07:32] LABS: ALT (GPT) 67 U/L (10-53); ANION GAP 6 MEQ/L (5-15); AST (GOT) 42 U/L (15-37); BICARBONATE 29.8 MEQ/L (21.0-32.0); BLOOD UREA NITROGEN 18 MG/DL (7-18); CHLORIDE 100 MEQ/L (98-107); GLOMERULAR FILTRATION RATE 54 ML/MIN (>89); POTASSIUM 4.2 MEQ/L (3.5-5.1); SODIUM (NA) 136 MEQ/L (136-145)
[2016-05-29 07:34] LABS: ALKALINE PHOSPHATASE 83 U/L (45-117); TOTAL BILIRUBIN ADULT 0.5 MG/DL (0.2-1.0)
[2016-05-29] MEDS: AMOXICILLIN/CLAVULANATE K 500 MG TAB PO SCH ×2 (08:04→20:54)
[2016-05-29] MEDS: POLYETHYLENE GLYCOL 17 GM PKG PO SCH ×2 (08:04→09:00)
[2016-05-29] MEDS: DOCUSATE SODIUM 100 MG CAP PO SCH ×2 (08:04→20:55)
[2016-05-29] MEDS: SENNOSIDES 8.6 MG TAB PO SCH (08:04)
[2016-05-29] MEDS: PANTOPRAZOLE SOD 40 MG DELAYED RELEASE TAB PO SCH ×2 (08:04→20:54)
--- NOTE | 2016-05-29 08:05 | EKG ---
Date Performed: 05/27/2016 Time Performed: 12:50:36 PTAGE: 85 years EKG: Sinus rhythm WITH SINUS ARRHYTHMIA RIGHT BUNDLE BRANCH BLOCK LEFT ANTERIOR FASCICULAR BLOCK ABNORMAL ECG Compared to PREVIOUS TRACING , right bundle branch block and left anterior fascicular block is new an d the sinus rate has increased. PREVIOUS TRACIN12/01/2014 19.12 DOCTOR: Matthew Bai Interpretating Date/Time 05/29/2016 08:05:03
--- NOTE | 2016-05-29 08:06 | EKG ---
Date Performed: 05/28/2016 Time Performed: 02:29:37 PTAGE: 85 years EKG: Sinus rhythm WITH OCCASIONAL SUPRAVENTRICULAR PREMATURE COMPLEXES RIGHT BUNDLE BRANCH BLOCK LEFT ANTERIOR FASCICU LAR BLOCK ABNORMAL ECG Compared to prior tracing no significant change PREVIOUS TRACING : 05/27/2016 18.18 DOCTOR: Matthew Bai Interpretating Date/Time 05/29/2016 08:05:20
--- NOTE | 2016-05-29 08:06 | EKG ---
Date Performed: 05/27/2016 Time Performed: 18:18:41 PTAGE: 85 years EKG: Sinus rhythm WITH SINUS ARRHYTHMIA RIGHT BUNDLE BRANCH BLOCK LEFT ANTERIOR FASCICULAR BLOCK ABNORMAL ECG Compared to prior tracing no significant change PREVIOUS TRACING : 05/27/2016 12.50 DOCTOR: Matthew Bai Interpretating Date/Time 05/29/2016 08:05:11
[2016-05-29] MEDS: SODIUM CHLORIDE 0.9% FLUSH 10 ML FLUSH IV FLUSH SCH ×2 (08:09→20:55)
[2016-05-29 08:14] VITALS: BP 145/78; PULSE 107; RESP 18; TEMP 98.1; O2SAT 95
[2016-05-29] MEDS ORDERED: PROPOFOL 200 MG/20 ML AMP IV ONE (10:41)
--- NOTE | 2016-05-29 11:25 | HHI.GIFU ---
Subjective Remarks no abdominal pain, some nausea. Objective Vitals I&O Vital Signs Date Time Temp Pulse Resp B/P Pulse Ox O2 Delivery O2 Flow Rate FiO2 05/29/16 10:57 99.1 120 16 128/59 97 Nasal Cannula 2 05/29/16 08:14 98.1 107 18 145/78 95 05/29/16 06:31 20 05/29/16 04:22 97.9 78 18 121/72 97 05/28/16 16:00 97.6 86 16 121/57 95 05/28/16 12:00 98.1 96 18 128/56 92 I/O 05/28/16 05/28/16 05/28/16 05/29/16 05/29/16 05/29/16 07:00 15:00 23:00 07:00 15:00 23:00 Intake Total 360 ml 200 ml Output Total 50 ml Balance 360 ml 150 ml Intake Oral 360 ml Other 200 ml Output Estimated Blood Loss 50 ml # Voids 4 # Bowel Movements 0 Laboratory Laboratory Tests Test 05/29/16 06:43 Sodium Level 136 Potassium Level 4.2 Chloride Level 100 Carbon Dioxide Level 29.8 Anion Gap 6 Blood Urea Nitrogen 18 Creatinine 0.98 Estimat Glomerular Filtration 54 Rate Random Glucose 151 Calcium Level 8.4 Total Bilirubin 0.5 Aspartate Amino Transf 42 (AST/SGOT) Alanine Aminotransferase 67 (ALT/SGPT) Alkaline Phosphatase 83 Total Protein 6.9 Albumin 3.2 Date/Time Procedure Status Source Growth 05/28/16 21:37 Stool Occult Blood (FIDEL) - Final Complete Stool Stool HEMOCCULT NEGATIVE Physical Exam HEENT: Normocephalic; atraumatic; no jaundice. CHEST: Chest is clear to auscultation and percussion. CARDIAC: RR. ABDOMEN: Soft, mildly distended, no tenderness, no hepatosplenomegaly; bowel sounds are present in all four quadrants. EXTREMITIES: No clubbing, cyanosis, or edema. SKIN: Normal; no rash; no jaundice. 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 Assessment and Plan Plan ASSESSMENT: - Constipation, abdominal distention. Long hx of constipation- states no bm for a few days, took MOM yesterday, had very small amount of loose stool, but says she did not pass any significant amount of stool. No hx of colonoscopy. S/P SSE x 2, Magnesium citrate. Miralax daily. Pt had multiple bowel movements after that and her symptoms improved yesterday, but with more distention today and requesting MOM. - Abdominal pain, unclear if related to constipation/distention vs. GB etiology. She is having diffuse abdominal tenderness today. - Cholelithiasis with questionable choledocholithiasis. Abdomen/Pelvis CT (05/26)----> 1. Distended gallbladder containing gallstones. No inflammatory changes. This may be source of patient's pain. 2. Uterine leiomyomas. 3. Left basilar atelectasis/scarring. Gall Bladder Ultrasound *(05/26/16)---> 1. Distended gallbladder containing stones. No wall thickening or pericholecystic fluid is present. However, there is a positive sonographic Pacheco sign. Findings therefore are suspicious for acute gallbladder obstruction/acute cholecystitis. 2. Dilated common bile duct. In retrospective review of the recent CT there is a questionable calcified tiny stone in the distal common bile duct near the ampulla. This may explain the intrahepatic hepatic bile duct dilatation. MRCP (05/26/16)-----> Mild to moderate biliary ductal dilatation without evidence of duct stone or mass to explain this. Mildly prominent retroperitoneal lymph nodes. LFTs and Lipase normal. GS following. No choledocholithiasis on MRCP. T Bili 0.7, AST 91, ALT 99, Alk Phosph 90 No RUQ pain. WBC normal. Afebrile. GS following, possible lap axel tomorrow. - Elevated LFTs. T Bili 0.7, AST 91, ALT 99, Alk Phosph 90. Hepatitis pending, WILLIE pending, AMA pending, ASMA negative, AFP 1.3. Alpha 1 Antitrypsin pending, Ceruloplasmin pending. GS following, for possible lap axel tomorrow. - Anemia. HH 9.5/29.1. - Atypcial cp. EGD cancelled secondary to chest pain. Pt states she has not had any chest pain and that she gets this at times, but not now. S/P cardiology evaluation, no further workup. 09-28-16 no abdominal pain, LFts improving, EGD was normal except small H hernia , Bx to R/O H pylori ? stone in CBD with dilation, patient may have passed a stone. PLAN: -NPO for now - Cont. PPI - Cont. Miralax - MRCP today, if positive for stone then we will do ERCP if negative for stones , consider lap choly. - Await liver workup - WILLIE, ASMA, AMA - Monitor CBC, LFT - Supportive care - GS following, possible lap axel - Further recommendations to follow based on results of above Hawa Almazan MD May 29, 2016 11:24
--- NOTE | 2016-05-29 11:27 | GIPROC ---
[facility] [address] [facility]. [facility], [address] EGD PROCEDURE REPORT EXAM DATE: 05/29/2016 PATIENT NAME: Kelin Jain MR #: [id number] BIRTHDATE: 1930 ATTENDING: Hawa Almazan MD ORDER #: [id number] SIGNALER: Mildred Schafer Dobbs, Deborah, and Radha Cross STATUS: inpatient INDICATIONS: The patient is a 85 yr old female here for an EGD due to epigastric abdominal pain PROCEDURE PERFORMED: EGD w/ biopsy MEDICATIONS: Per Anesthesia and None. TOPICAL ANESTHETIC: none CONSENT: The patient understands the risks and benefits of the procedure and understands that these risks include, but are not limited to: sedation, allergic reaction, infection, perforation and/or bleeding. Alternative means of evaluation and treatment include, among others: physical exam, x-rays, and/or surgical intervention. The patient elects to proceed with this endoscopic procedure. medical equipment was checked for proper function. Hand hygiene and appropriate measures for infection prevention was taken. After the risks, benefits and alternatives of the procedure were thoroughly explained, Informed consent was verified, confirmed and timeout was successfully executed by the treatment team. The patient was anesthetized with topical anesthesia and the [id number] (Pedi C) and Pentax [id number] endoscope was introduced through the mouth and advanced to the second portion of the duodenum. Retroflexed views revealed a hiatal hernia and Retroflexed views revealed The gastroscope was then slowly withdrawn and removed. Normal exam Bx from antrum to r/o H pylori. ADVERSE EVENTS: There were no complications. IMPRESSIONS: 1. Normal exam Bx from antrum to r/o H pylori 2. Retroflexed views revealed no abnormalities RECOMMENDATIONS: 1. Await biopsy results. Biopsy results will not be ready for 7-10 days. If you don't hear from us in two weeks, call our office for biopsy results. 2. Continue PPI 3. MRCP today PATIENT CONDITION: stable DISPOSITION: Inpatient REPEAT EXAM: Return as needed for EGD Hawa Almazan MD eSigned: Hawa Almazan MD 05/29/2016 11:26 AM cc: PATIENT NAME: Kelin Jain MR#: [id number]
[2016-05-29] MEDS ORDERED: DO NOT ADM ANY ANTICOAGULANT DRUGS PRN (11:45)
[2016-05-29] MEDS: HYDROmorphone HCL PF 1 MG/ML VIAL IV PUSH PRN (12:10)
[2016-05-29 12:17] VITALS: BP 112/54; PULSE 95; RESP 18; TEMP 97.8; O2SAT 95
[2016-05-29] MEDS ORDERED: MAGNESIUM HYDROXIDE SUSP 30 ML CUP PO ONE (13:00)
[2016-05-29 13:11] LABS: ANA SCREEN NEG (NEG)
--- NOTE | 2016-05-29 13:11 | HHI.PR ---
Subjective Remarks The pt was complaining about 10/10 pain all over her body. She was unable to isolate a part of her body that hurts the most. She also said her stomach was large again. She said she went for a procedure this morning. She wants Milk of Magnesia. Objective Vitals Vital Signs Date Time Temp Pulse Resp B/P Pulse Ox O2 Delivery O2 Flow Rate FiO2 05/29/16 12:17 97.8 95 18 112/54 95 05/29/16 11:26 79 15 122/66 99 Room Air 05/29/16 11:15 90 13 126/65 99 Room Air 05/29/16 11:00 94 14 135/70 100 Room Air 05/29/16 10:57 99.1 120 16 128/59 97 Nasal Cannula 2 05/29/16 08:14 98.1 107 18 145/78 95 05/29/16 06:31 20 05/29/16 04:22 97.9 78 18 121/72 97 05/28/16 16:00 97.6 86 16 121/57 95 I/O 05/28/16 05/28/16 05/28/16 05/29/16 05/29/16 05/29/16 07:00 15:00 23:00 07:00 15:00 23:00 Intake Total 360 ml 200 ml Output Total 50 ml Balance 360 ml 150 ml Intake Oral 360 ml Other 200 ml Output Estimated Blood Loss 50 ml # Voids 4 # Bowel Movements 0 Result Diagram: 05/28/16 0800 05/29/16 0643 Imaging Last Impressions Gall Bladder Ultrasound 05/26/16 0805 Signed Impressions: Service Date/Time: Thursday, May 26, 2016 09:27 - CONCLUSION: 1. Distended gallbladder containing stones. No wall thickening or pericholecystic fluid is present. However, there is a positive sonographic Pacheco sign. Findings therefore are suspicious for acute gallbladder obstruction/acute cholecystitis. 2. Dilated common bile duct. In retrospective review of the recent CT there is a questionable calcified tiny stone in the distal common bile duct near the ampulla. This may explain the intrahepatic hepatic bile duct dilatation. Van Kidd MD Chest X-Ray 05/26/16 7572 Signed Impressions: Service Date/Time: Thursday, May 26, 2016 04:58 - CONCLUSION: Stable chest with left basilar scarring and previous CABG. Mark Holguin MD Abdomen/Pelvis CT 05/26/16 0432 Signed Impressions: Service Date/Time: Thursday, May 26, 2016 04:50 - CONCLUSION: 1. Distended gallbladder containing gallstones. No inflammatory changes. This may be source of patient's pain. 2. Uterine leiomyomas. 3. Left basilar atelectasis/ scarring. Mark Holguin MD Cholangiopancreatography MRI 05/26/16 0000 Signed Impressions: Service Date/Time: Thursday, May 26, 2016 13:24 - CONCLUSION: Mild to moderate biliary ductal dilatation without evidence of duct stone or mass to explain this. Mildly prominent retroperitoneal lymph nodes. Van Gautam MD Objective Remarks GENERAL: This is a well-nourished, well-developed patient, appearing uncomfortable. SKIN: Left upper arm abrasion. HEAD: Atraumatic. Normocephalic. . EYES: Pupils equal round and reactive. Extraocular motions intact. ENT: Nose without bleeding, purulent drainage or septal hematoma. Airway patent. NECK: Trachea midline. No JVD or lymphadenopathy. Supple CARDIOVASCULAR: Regular rate and rhythm without murmurs, gallops, or rubs. RESPIRATORY: Clear to auscultation. Breath sounds equal bilaterally. No wheezes , rales, or rhonchi. GASTROINTESTINAL: Abdomen soft, slightly tender, distended. No hepato- splenomegaly, or palpable masses. No guarding. MUSCULOSKELETAL: Bilateral lower extremities with +1 edema. No joint tenderness. NEUROLOGICAL: Awake and alert. Motor and sensory grossly within normal limits. Five out of 5 muscle strength in all muscle groups. Normal speech. PSYCH: Slightly flattened affect. Procedures EGD Medications and IVs Current Medications Medications (Trade) Dose Ordered Sig/Micky Route Start Time Stop Time Status Last Admin (NS Flush) 2 ml UNSCH PRN IV FLUSH 05/26/16 06:45 (NS Flush) 2 ml BID IV FLUSH 05/26/16 09:00 05/29/16 08:09 (Zofran Inj) 4 mg Q6H PRN IVP 05/26/16 06:45 05/26/16 22:37 (Narcan Inj) 0.4 mg UNSCH PRN IV 05/26/16 06:45 (Lipitor) 10 mg HS PO 05/26/16 21:00 05/28/16 20:54 (Neurontin) 100 mg HS PO 05/26/16 21:00 05/28/16 20:54 (Imdur) 30 mg DAILY@07 PO 05/26/16 12:00 05/29/16 07:18 (D50w (Vial) Inj) 25 ml UNSCH PRN IV PUSH 05/26/16 08:45 (Glucagon Inj) 1 mg UNSCH PRN OTHER 05/26/16 08:45 (Augmentin) 500 mg Q12HR PO 05/26/16 21:00 05/31/16 20:59 05/29/16 08:04 (Dilaudid Pf Inj) 0.5 mg Q4H PRN IV PUSH 05/26/16 18:45 05/29/16 12:10 (Miralax) 17 gm DAILY PO 05/26/16 16:15 05/28/16 09:36 (Protonix) 40 mg BID PO 05/27/16 21:00 05/29/16 08:04 (Colace) 100 mg BID PO 05/28/16 12:15 05/29/16 08:04 (Senokot) 17.2 mg DAILY PO 05/28/16 12:15 05/29/16 08:04 (Milk Of Magnesia Liq) 30 ml DAILY PRN PO 05/28/16 12:15 05/28/16 17:23 Miscellaneous Information ALL NURSING DEPARTME... UNSCH PRN .XX 05/29/16 11:45 05/30/16 11:44 (Milk Of Magnesia Liq) 30 ml ONCE ONCE PO 05/29/16 13:00 05/29/16 13:01 (Ultram) 50 mg Q4H PRN PO 05/29/16 13:00 UNV A/P Problem List: (1) Acute cholecystitis ICD Code: K81.0 Status: Acute (2) Fall ICD Code: W19.XXXA Status: Chronic (3) Abrasion ICD Code: T14.8 Status: Acute (4) Diabetes mellitus ICD Code: E11.9 Status: Chronic (5) Hypertension ICD Code: I10 Status: Chronic (6) Hyperlipidemia ICD Code: E78.5 Status: Chronic Assessment and Plan 85 y/o female with a history of HTN, HLD, DM, Neuropathy, arthritis, vertigo, and gerd presented to the ED with complaints of Abdominal pain and bloating. Acute Cholecystitis/ Abdominal pain Gallbladder US shows a distended gallbladder containing stones. No wall thickening or pericholecystic fluid is present. However, there is a positive sonographic Pacheco sign and a dilated common bile duct. Abdomen/Pelvis CT shows a distended gallbladder containing gallstones; No inflammatory changes; Uterine leiomyomas and Left basilar atelectasis/scarring. General Surgery was consulted and they consulted GI. MRCP shows mild to moderate biliary ductal dilatation without evidence of duct stone or mass to explain this; Mildly prominent retroperitoneal lymph nodes. No indication for ERCP per GI. The pt's constipation resolved with an aggressive bowel regimen. EGD 05/29 unremarkable. - Pain management with a bowel regimen. - continue PPI. - anticipate cholecystectomy on Wednesday per general surgery. - MRCP ordered by GI. Generalized pain/ Weakness The pt complains of pain all over her body. ? fibromyalgia. - tramadol with Dilaudid for breakthrough. - work-up for GI etiology as above. - PT/ OT Atypical chest pain Likely secondary to cholecystitis. EKG and troponins unremarkable. Cardiology consult appreciated. - The patient has been cleared for surgery. - Pain control as needed. Anemia Unsure of etiology. - follow CBC and transfuse as needed. - PPI. - Hemoccult requested. Acute renal insufficiency May be pre-renal. S/p IVFs. - follow BMP. Improved. Fall/ upper extremity abrasion 1 week ago the patient suffered a wound on her left arm. According to patients daughter she just received a rx for Augmentin from her PCP. - Fall precautions. - Restart Augmentin 500mg PO BID. - Consult wound care. Appreciate recs. - PT/ OT evals. Diabetes Chronic. Glucose is well-controlled 05/29. - Accu checks with SSI. HTN Well controlled 05/29. - hold medications for now. DVT prophylaxis: SCDs. Discharge Planning Anticipating surgery on Wednesday. Problem Qualifiers (1) Diabetes mellitus: (2) Hyperlipidemia: Qualified Code: E78.2 - Mixed hyperlipidemia Benedict Crump DO May 29, 2016 13:11
--- NOTE | 2016-05-29 16:30 | RADRPT ---
EXAM DATE/TIME: 05/29/2016 15:26 [facility] COMPARISON: MRCP W/O CONTRAST, May 26, 2016, 13:24. INDICATIONS : Pain. MEDICAL HISTORY : Hypertension. Myocardial infarction. Hypercholesterolemia. CHF. Diabetes. COPD. SURGICAL HISTORY : CABG Knee. Cataracts. ENCOUNTER: Subsequent ACUITY: 4-6 days PAIN SCORE: 5/10 LOCATION: Abdomen. TECHNIQUE: Multiplanar, multisequence magnetic resonance imaging of the abdomen was performed. High-resolution 3D dataset was utilized to reconstruct maximum-intensity projection (MIP) images. FINDINGS: There has been slight interval decrease in degree of extrahepatic ductal dilatation from the exam of several days ago with common duct diameter currently about 10-11 mm. Gallbladder remains mildly dilat ed. There is no evidence of common duct stone or obstructing mass. The liver, spleen, pancreas, adrenals and kidneys remain benign in appearance. Mildly enlarged para-aortic lymph nodes are again noted, unchanged. CONCLUSION: Slight interval decrease in degree of extrahepatic ductal dilatation. Van Gautam MD on May 29, 2016 at 16:21 Board Certified Radiologist. This report was verified electronically.
--- NOTE | 2016-05-29 16:51 | HHI.PR ---
Subjective Subjective Notes No pain now; doesn't remember what GI doctor told her after endoscopy. Objective Vitals/I&O Vital Signs Date Time Temp Pulse Resp B/P Pulse Ox O2 Delivery O2 Flow Rate FiO2 05/29/16 12:17 97.8 95 18 112/54 95 05/29/16 11:26 Room Air 05/29/16 10:57 2 Labs Laboratory Tests Test 05/29/16 06:43 Sodium Level 136 Potassium Level 4.2 Chloride Level 100 Carbon Dioxide Level 29.8 Anion Gap 6 Blood Urea Nitrogen 18 Creatinine 0.98 Estimat Glomerular Filtration 54 Rate Random Glucose 151 Calcium Level 8.4 Total Bilirubin 0.5 Aspartate Amino Transf 42 (AST/SGOT) Alanine Aminotransferase 67 (ALT/SGPT) Alkaline Phosphatase 83 Total Protein 6.9 Albumin 3.2 Date/Time Procedure Status Source Growth 05/28/16 21:37 Stool Occult Blood (FIDEL) - Final Complete Stool Stool HEMOCCULT NEGATIVE Lungs: Clear Abdomen: Non-distended, Non-tender A/P Assessment and Plan 85 year old female with abdominal pain -EGD results pending -Diet as tolerated -Pain control -Cardiology clear for surgery -Plan for lap axel on Wednesday at 0930 -Obtain consents -NPO after MN on Wednesday, unless other major findings by GI service; call in to Dr. Almazan -Discussed that 1/3 chance to get better, 1/3 chance no change in pain, 1/3 chance it will get worse She will think about it; OK to discharge if patient wants this Bowel regimen to avoid constipation Benedict Sands MD May 29, 2016 16:51
[2016-05-29] MEDS: traMADol HCL 50 MG TAB PO PRN (18:27)
[2016-05-29 18:39] VITALS: PULSE 87
[2016-05-29] MEDS: MAGNESIUM HYDROXIDE SUSP 30 ML CUP PO PRN (20:53)
[2016-05-29] MEDS: GABAPENTIN 100 MG CAP PO SCH (20:54)
[2016-05-29] MEDS: ATORVASTATIN 10 MG TAB PO SCH (20:54)
[2016-05-30] VITALS (9 sets, daily range): BP systolic 116–156; BP diastolic 53–70; PULSE 81–104; RESP 18–20; TEMP 97–99.4; O2SAT 93–95
[2016-05-30] MEDS: ISOSORBIDE MONONITRATE 30 MG TAB PO SCH (06:12)
[2016-05-30] MEDS: INSULIN ASPART SUPPLEMENTAL SCALE SQ SCH ×4 (06:24→21:07)
[2016-05-30] MEDS: traMADol HCL 50 MG TAB PO PRN ×3 (06:29→11:36)
[2016-05-30 08:16] LABS: HEMATOCRIT 29.7 % (35.0-46.0); MEAN CELL VOLUME 84.7 FL (80.0-100.0); MEAN CORPUSCULAR HEMOGLOBIN 26.9 PG (27.0-34.0); MEAN CORPUSCULAR HGB CONC 31.8 % (32.0-36.0); PLATELET COUNT 146 TH/MM3 (150-450); RED BLOOD COUNT 3.51 MIL/MM3 (4.00-5.30); RED CELL DISTRIBUTION WIDTH 16.3 % (11.6-17.2); REVIEW FLAG FINAL; WHITE BLOOD COUNT 7.7 TH/MM3 (4.0-11.0)
[2016-05-30 08:27] LABS: ALT (GPT) 45 U/L (10-53); ANION GAP 10 MEQ/L (5-15); AST (GOT) 35 U/L (15-37); BICARBONATE 28.2 MEQ/L (21.0-32.0); BLOOD UREA NITROGEN 14 MG/DL (7-18); CHLORIDE 97 MEQ/L (98-107); GLOMERULAR FILTRATION RATE 67 ML/MIN (>89); MAGNESIUM 2.1 MG/DL (1.5-2.5); POTASSIUM 3.9 MEQ/L (3.5-5.1); SODIUM (NA) 135 MEQ/L (136-145)
[2016-05-30 08:28] LABS: ALKALINE PHOSPHATASE 79 U/L (45-117); TOTAL BILIRUBIN ADULT 0.8 MG/DL (0.2-1.0)
[2016-05-30] MEDS: DOCUSATE SODIUM 100 MG CAP PO SCH ×2 (08:50→21:07)
[2016-05-30] MEDS: SENNOSIDES 8.6 MG TAB PO SCH (08:50)
[2016-05-30] MEDS: AMOXICILLIN/CLAVULANATE K 500 MG TAB PO SCH ×2 (08:50→21:07)
[2016-05-30] MEDS: POLYETHYLENE GLYCOL 17 GM PKG PO SCH (08:50)
[2016-05-30] MEDS: PANTOPRAZOLE SOD 40 MG DELAYED RELEASE TAB PO SCH ×2 (08:50→21:07)
[2016-05-30] MEDS: BISACODYL 10 MG SUPP RECTAL SCH (08:51)
[2016-05-30] MEDS: SODIUM CHLORIDE 0.9% FLUSH 10 ML FLUSH IV FLUSH SCH ×2 (09:02→21:07)
[2016-05-30] MEDS: LIDOCAINE HCL 5% PATCH T-DERMAL SCH (16:16)
--- NOTE | 2016-05-30 16:18 | HHI.PR ---
Subjective Remarks The patient says she is still in significant pain. She said she pulled out her IV because it was hurting her a lot. Discussed with nursing. The patient is agreeable with having another IV placed. She is not confident that she will be able to follow-up with surgery if she were discharged home. Objective Vitals Vital Signs Date Time Temp Pulse Resp B/P Pulse Ox O2 Delivery O2 Flow Rate FiO2 05/30/16 15:33 98.1 87 20 135/60 93 05/30/16 15:07 98 05/30/16 11:34 97.0 81 20 124/63 94 05/30/16 07:44 97.7 88 20 116/53 95 05/30/16 03:44 104 05/30/16 00:07 97.9 90 20 156/70 95 05/29/16 18:39 87 I/O 05/29/16 05/29/16 05/29/16 05/30/16 05/30/16 05/30/16 07:00 15:00 23:00 07:00 15:00 23:00 Intake Total 200 ml 240 ml Output Total 50 ml Balance 150 ml 240 ml Intake Oral 240 ml Other 200 ml Estimated Blood Loss 50 ml # Voids 2 # Bowel Movements 1 Result Diagram: 05/30/16 0719 05/30/16 0719 Imaging Last Impressions Cholangiopancreatography MRI 05/29/16 0000 Signed Impressions: Service Date/Time: Sunday, May 29, 2016 15:26 - CONCLUSION: Slight interval decrease in degree of extrahepatic ductal dilatation. Van Gautam MD Gall Bladder Ultrasound 05/26/16 0805 Signed Impressions: Service Date/Time: Thursday, May 26, 2016 09:27 - CONCLUSION: 1. Distended gallbladder containing stones. No wall thickening or pericholecystic fluid is present. However, there is a positive sonographic Pacheco sign. Findings therefore are suspicious for acute gallbladder obstruction/acute cholecystitis. 2. Dilated common bile duct. In retrospective review of the recent CT there is a questionable calcified tiny stone in the distal common bile duct near the ampulla. This may explain the intrahepatic hepatic bile duct dilatation. Van Kidd MD Chest X-Ray 05/26/16 0432 Signed Impressions: Service Date/Time: Thursday, May 26, 2016 04:58 - CONCLUSION: Stable chest with left basilar scarring and previous CABG. Mark Holguin MD Abdomen/Pelvis CT 05/26/16 0432 Signed Impressions: Service Date/Time: Thursday, May 26, 2016 04:50 - CONCLUSION: 1. Distended gallbladder containing gallstones. No inflammatory changes. This may be source of patient's pain. 2. Uterine leiomyomas. 3. Left basilar atelectasis/ scarring. Mark Hogluin MD Objective Remarks GENERAL: This is a well-nourished, well-developed patient, appearing uncomfortable. SKIN: Left upper arm abrasion. HEAD: Atraumatic. Normocephalic. . EYES: Pupils equal round and reactive. Extraocular motions intact. ENT: Nose without bleeding, purulent drainage or septal hematoma. Airway patent. NECK: Trachea midline. No JVD or lymphadenopathy. Supple CARDIOVASCULAR: Regular rate and rhythm without murmurs, gallops, or rubs. RESPIRATORY: Clear to auscultation. Breath sounds equal bilaterally. No wheezes , rales, or rhonchi. GASTROINTESTINAL: Abdomen soft, slightly tender, distended. No hepato- splenomegaly, or palpable masses. No guarding. MUSCULOSKELETAL: Bilateral lower extremities with +1 edema. No joint tenderness. NEUROLOGICAL: Awake and alert. Motor and sensory grossly within normal limits. Five out of 5 muscle strength in all muscle groups. Normal speech. PSYCH: Slightly flattened affect. Procedures EGD Medications and IVs Current Medications Medications (Trade) Dose Ordered Sig/Micky Route Start Time Stop Time Status Last Admin (NS Flush) 2 ml UNSCH PRN IV FLUSH 05/26/16 06:45 (NS Flush) 2 ml BID IV FLUSH 05/26/16 09:00 05/30/16 09:02 (Zofran Inj) 4 mg Q6H PRN IVP 05/26/16 06:45 05/26/16 22:37 (Narcan Inj) 0.4 mg UNSCH PRN IV 05/26/16 06:45 (Lipitor) 10 mg HS PO 05/26/16 21:00 05/29/16 20:54 (Neurontin) 100 mg HS PO 05/26/16 21:00 05/29/16 20:54 (Imdur) 30 mg DAILY@07 PO 05/26/16 12:00 05/30/16 06:12 (D50w (Vial) Inj) 25 ml UNSCH PRN IV PUSH 05/26/16 08:45 (Glucagon Inj) 1 mg UNSCH PRN OTHER 05/26/16 08:45 (Augmentin) 500 mg Q12HR PO 05/26/16 21:00 05/31/16 20:59 05/30/16 08:50 (Miralax) 17 gm DAILY PO 05/26/16 16:15 05/30/16 08:50 (Protonix) 40 mg BID PO 05/27/16 21:00 05/30/16 08:50 (Colace) 100 mg BID PO 05/28/16 12:15 05/30/16 08:50 (Senokot) 17.2 mg DAILY PO 05/28/16 12:15 05/30/16 08:50 (Milk Of Magnesia Liq) 30 ml DAILY PRN PO 05/28/16 12:15 05/29/16 20:53 (Ultram) 50 mg Q4H PRN PO 05/29/16 13:00 05/30/16 11:36 (Dulcolax Supp) 10 mg DAILY RECTAL 05/30/16 09:00 05/30/16 08:51 (Lidoderm 5% Patch.12 Hr) 1 patch DAILY T-DERMAL 05/30/16 15:45 A/P Problem List: (1) Acute cholecystitis ICD Code: K81.0 Status: Acute (2) Fall ICD Code: W19.XXXA Status: Chronic (3) Abrasion ICD Code: T14.8 Status: Acute (4) Diabetes mellitus ICD Code: E11.9 Status: Chronic (5) Hypertension ICD Code: I10 Status: Chronic (6) Hyperlipidemia ICD Code: E78.5 Status: Chronic Assessment and Plan 85 y/o female with a history of HTN, HLD, DM, Neuropathy, arthritis, vertigo, and gerd presented to the ED with complaints of Abdominal pain and bloating. Acute Cholecystitis/ Abdominal pain Gallbladder US shows a distended gallbladder containing stones. No wall thickening or pericholecystic fluid is present. However, there is a positive sonographic Pacheco sign and a dilated common bile duct. Abdomen/Pelvis CT shows a distended gallbladder containing gallstones; No inflammatory changes; Uterine leiomyomas and Left basilar atelectasis/scarring. General Surgery was consulted and they consulted GI. MRCP shows mild to moderate biliary ductal dilatation without evidence of duct stone or mass to explain this; Mildly prominent retroperitoneal lymph nodes. No indication for ERCP per GI. The pt's constipation resolved with an aggressive bowel regimen. EGD 05/29 unremarkable. Repeat MRCP noted. - Pain management with a bowel regimen. - continue PPI. - anticipate cholecystectomy on Wednesday per general surgery. Generalized pain/ Weakness The pt complains of pain all over her body. ? fibromyalgia. - tramadol with Dilaudid for breakthrough. - work-up for GI etiology as above. - PT/ OT. - Lidoderm patch. Atypical chest pain Likely secondary to cholecystitis. EKG and troponins unremarkable. Cardiology consult appreciated. - The patient has been cleared for surgery. - Pain control as needed. Anemia Unsure of etiology. Hemoccult negative. - follow CBC and transfuse as needed. - PPI. Acute renal insufficiency May be pre-renal. S/p IVFs. - follow BMP. Improved. Fall/ upper extremity abrasion 1 week ago the patient suffered a wound on her left arm. According to patients daughter she just received a rx for Augmentin from her PCP. - Fall precautions. - Restart Augmentin 500mg PO BID. - Consult wound care. Appreciate recs. - PT/ OT evals. Diabetes Chronic. Glucose is well-controlled 05/29. - Accu checks with SSI. HTN Well controlled 05/30. - hold medications for now. DVT prophylaxis: SCDs. Discharge Planning Anticipating surgery on Wednesday. Problem Qualifiers (1) Diabetes mellitus: (2) Hyperlipidemia: Qualified Code: E78.2 - Mixed hyperlipidemia Benedict Crump DO May 30, 2016 16:18
[2016-05-30] MEDS: GABAPENTIN 100 MG CAP PO SCH (21:07)
[2016-05-30] MEDS: ATORVASTATIN 10 MG TAB PO SCH (21:09)
[2016-05-31 04:18] VITALS: BP 135/60; PULSE 95; RESP 19; TEMP 98; O2SAT 94
[2016-05-31] MEDS: INSULIN ASPART SUPPLEMENTAL SCALE SQ SCH ×5 (06:03→21:41)
[2016-05-31] MEDS: traMADol HCL 50 MG TAB PO PRN ×2 (06:18→21:42)
[2016-05-31] MEDS: ISOSORBIDE MONONITRATE 30 MG TAB PO SCH (06:18)
[2016-05-31 08:00] VITALS: BP 139/59; PULSE 101; RESP 20; TEMP 98.1; O2SAT 91
[2016-05-31] MEDS: BISACODYL 10 MG SUPP RECTAL SCH (09:00)
[2016-05-31] MEDS: LIDOCAINE HCL 5% PATCH T-DERMAL SCH (09:03)
[2016-05-31] MEDS: POLYETHYLENE GLYCOL 17 GM PKG PO SCH (09:03)
[2016-05-31] MEDS: PANTOPRAZOLE SOD 40 MG DELAYED RELEASE TAB PO SCH ×2 (09:03→21:42)
[2016-05-31] MEDS: DOCUSATE SODIUM 100 MG CAP PO SCH ×2 (09:03→21:42)
[2016-05-31] MEDS: AMOXICILLIN/CLAVULANATE K 500 MG TAB PO SCH (09:03)
[2016-05-31] MEDS: SENNOSIDES 8.6 MG TAB PO SCH (09:03)
[2016-05-31] MEDS: SODIUM CHLORIDE 0.9% FLUSH 10 ML FLUSH IV FLUSH SCH ×2 (09:04→21:41)
[2016-05-31 10:13] VITALS: PULSE 96
[2016-05-31 12:00] VITALS: BP 123/62; PULSE 86; RESP 20; TEMP 98.6; O2SAT 94
--- NOTE | 2016-05-31 12:12 | HHI.PR ---
Subjective Remarks The patient was teary-eyed. She was complaining of diffuse pain all over, but she said the most pain was in her buttocks area. She said she has not been eating. She says she still has not had a bowel movement. Discussed with nursing. Objective Vitals Vital Signs Date Time Temp Pulse Resp B/P Pulse Ox O2 Delivery O2 Flow Rate FiO2 05/31/16 10:13 96 05/31/16 08:00 98.1 101 20 139/59 91 05/31/16 04:18 98.0 95 19 135/60 94 05/30/16 23:25 98.7 99 19 135/59 93 05/30/16 22:11 102 05/30/16 19:47 99.4 100 18 134/61 95 05/30/16 15:33 98.1 87 20 135/60 93 05/30/16 15:07 98 I/O 05/30/16 05/30/16 05/30/16 05/31/16 05/31/16 05/31/16 07:00 15:00 23:00 07:00 15:00 23:00 Intake Total 240 ml Balance 240 ml Intake Oral 240 ml # Voids 3 1 # Bowel Movements 2 1 Result Diagram: 05/30/16 0719 05/30/16 0719 Imaging Last Impressions Cholangiopancreatography MRI 05/29/16 0000 Signed Impressions: Service Date/Time: Sunday, May 29, 2016 15:26 - CONCLUSION: Slight interval decrease in degree of extrahepatic ductal dilatation. Van Gautam MD Gall Bladder Ultrasound 05/26/16 0805 Signed Impressions: Service Date/Time: Thursday, May 26, 2016 09:27 - CONCLUSION: 1. Distended gallbladder containing stones. No wall thickening or pericholecystic fluid is present. However, there is a positive sonographic Pacheco sign. Findings therefore are suspicious for acute gallbladder obstruction/acute cholecystitis. 2. Dilated common bile duct. In retrospective review of the recent CT there is a questionable calcified tiny stone in the distal common bile duct near the ampulla. This may explain the intrahepatic hepatic bile duct dilatation. Van Kidd MD Chest X-Ray 05/26/16 0432 Signed Impressions: Service Date/Time: Thursday, May 26, 2016 04:58 - CONCLUSION: Stable chest with left basilar scarring and previous CABG. Mark Holguin MD Abdomen/Pelvis CT 05/26/16 0432 Signed Impressions: Service Date/Time: Thursday, May 26, 2016 04:50 - CONCLUSION: 1. Distended gallbladder containing gallstones. No inflammatory changes. This may be source of patient's pain. 2. Uterine leiomyomas. 3. Left basilar atelectasis/ scarring. Mark Holguin MD Objective Remarks GENERAL: This is a well-nourished, well-developed patient, appearing uncomfortable. SKIN: Left upper arm abrasion. HEAD: Atraumatic. Normocephalic. . EYES: Pupils equal round and reactive. Extraocular motions intact. ENT: Nose without bleeding, purulent drainage or septal hematoma. Airway patent. NECK: Trachea midline. No JVD or lymphadenopathy. Supple CARDIOVASCULAR: Regular rate and rhythm without murmurs, gallops, or rubs. RESPIRATORY: Clear to auscultation. Breath sounds equal bilaterally. No wheezes , rales, or rhonchi. GASTROINTESTINAL: Abdomen soft, slightly tender, distended. No hepato- splenomegaly, or palpable masses. No guarding. MUSCULOSKELETAL: Bilateral lower extremities with +1 edema. No joint tenderness. NEUROLOGICAL: Awake and alert. Motor and sensory grossly within normal limits. Five out of 5 muscle strength in all muscle groups. Normal speech. PSYCH: Teary-eyed. Procedures EGD Medications and IVs Current Medications Medications (Trade) Dose Ordered Sig/Micky Route Start Time Stop Time Status Last Admin (NS Flush) 2 ml UNSCH PRN IV FLUSH 05/26/16 06:45 (NS Flush) 2 ml BID IV FLUSH 05/26/16 09:00 05/31/16 09:04 (Zofran Inj) 4 mg Q6H PRN IVP 05/26/16 06:45 05/26/16 22:37 (Narcan Inj) 0.4 mg UNSCH PRN IV 05/26/16 06:45 (Lipitor) 10 mg HS PO 05/26/16 21:00 05/30/16 21:09 (Neurontin) 100 mg HS PO 05/26/16 21:00 05/30/16 21:07 (Imdur) 30 mg DAILY@07 PO 05/26/16 12:00 05/31/16 06:18 (D50w (Vial) Inj) 25 ml UNSCH PRN IV PUSH 05/26/16 08:45 (Glucagon Inj) 1 mg UNSCH PRN OTHER 05/26/16 08:45 (Augmentin) 500 mg Q12HR PO 05/26/16 21:00 05/31/16 20:59 05/31/16 09:03 (Miralax) 17 gm DAILY PO 05/26/16 16:15 05/31/16 09:03 (Protonix) 40 mg BID PO 05/27/16 21:00 05/31/16 09:03 (Colace) 100 mg BID PO 05/28/16 12:15 05/31/16 09:03 (Senokot) 17.2 mg DAILY PO 05/28/16 12:15 05/31/16 09:03 (Milk Of Magnesia Liq) 30 ml DAILY PRN PO 05/28/16 12:15 05/29/16 20:53 (Ultram) 50 mg Q4H PRN PO 05/29/16 13:00 05/31/16 06:18 (Dulcolax Supp) 10 mg DAILY RECTAL 05/30/16 09:00 05/30/16 08:51 (Lidoderm 5% Patch.12 Hr) 1 patch DAILY T-DERMAL 05/30/16 15:45 05/31/16 09:03 A/P Problem List: (1) Acute cholecystitis ICD Code: K81.0 Status: Acute (2) Fall ICD Code: W19.XXXA Status: Chronic (3) Abrasion ICD Code: T14.8 Status: Acute (4) Diabetes mellitus ICD Code: E11.9 Status: Chronic (5) Hypertension ICD Code: I10 Status: Chronic (6) Hyperlipidemia ICD Code: E78.5 Status: Chronic Assessment and Plan 85 y/o female with a history of HTN, HLD, DM, Neuropathy, arthritis, vertigo, and gerd presented to the ED with complaints of Abdominal pain and bloating. Acute Cholecystitis/ Abdominal pain Gallbladder US shows a distended gallbladder containing stones. No wall thickening or pericholecystic fluid is present. However, there is a positive sonographic Pacheco sign and a dilated common bile duct. Abdomen/Pelvis CT shows a distended gallbladder containing gallstones; No inflammatory changes; Uterine leiomyomas and Left basilar atelectasis/scarring. General Surgery was consulted and they consulted GI. MRCP shows mild to moderate biliary ductal dilatation without evidence of duct stone or mass to explain this; Mildly prominent retroperitoneal lymph nodes. No indication for ERCP per GI. The pt's constipation resolved with an aggressive bowel regimen. EGD 05/29 unremarkable. Repeat MRCP noted. - Pain management with a bowel regimen. - continue PPI. - anticipate cholecystectomy on Wednesday per general surgery. Generalized pain/ Weakness The pt complains of pain all over her body. ? fibromyalgia. - tramadol with Dilaudid for breakthrough. - work-up for GI etiology as above. - PT/ OT. - Lidoderm patch. Trial of Toradol. Atypical chest pain Likely secondary to cholecystitis. EKG and troponins unremarkable. Cardiology consult appreciated. - The patient has been cleared for surgery. - Pain control as needed. Anemia Unsure of etiology. Hemoccult negative. - follow CBC and transfuse as needed. - PPI. Acute renal insufficiency May be pre-renal. S/p IVFs. - follow BMP. Improved. Fall/ upper extremity abrasion 1 week ago the patient suffered a wound on her left arm. According to patients daughter she just received a rx for Augmentin from her PCP. - Fall precautions. - Restart Augmentin 500mg PO BID. - Consult wound care. Appreciate recs. - PT/ OT feliberto. Diabetes Chronic. Glucose is well-controlled 05/31. - Accu checks with SSI. HTN Well controlled 05/31. - hold medications for now. DVT prophylaxis: SCDs. Discharge Planning Anticipating surgery on Wednesday. Problem Qualifiers (1) Diabetes mellitus: (2) Hyperlipidemia: Qualified Code: E78.2 - Mixed hyperlipidemia Benedict Crump DO May 31, 2016 12:12
[2016-05-31] MEDS ORDERED: KETOROLAC TROMETHAMINE 30 MG/ML (IVP) VIAL IV PUSH ONE (12:15)
--- NOTE | 2016-05-31 15:24 | HHI.PR ---
Subjective Subjective Notes DAILY PROGRESS NOTE FOR SURGICAL ATTENDING, DR. LEOBARDO NEWMAN Objective Vitals/I&O Vital Signs Date Time Temp Pulse Resp B/P Pulse Ox O2 Delivery O2 Flow Rate FiO2 05/31/16 12:00 98.6 86 20 123/62 94 05/29/16 11:26 Room Air 05/29/16 10:57 2 Labs Laboratory Tests Test 05/27/16 05/28/16 05/28/16 05/30/16 14:18 03:36 08:00 07:19 Iron Level 90 MCG/DL Total Iron Binding Capacity 375 MCG/DL Percent Iron Saturation 24.0 % Ferritin 33 NG/ML Tumor Marker Alpha Fetoprotein 1.3 NG/ML Anti-Smooth Muscle Antibody Negative Anti-Nuclear Antibody Screen NEG Hepatitis A IgM Antibody NEGATIVE Hepatitis B Surface Antigen NEGATIVE Hepatitis B Core IgM Antibody NEGATIVE Hepatitis C Antibody NEGATIVE [id number] 195 mg/dL Ceruloplasmin 27 mg/dL Phosphorus Level 2.7 MG/DL Direct Bilirubin 0.2 MG/DL Indirect Bilirubin 0.5 MG/DL Troponin I LESS THAN 0.02 NG/ML Neutrophils (%) (Auto) 71.8 % Lymphocytes (%) (Auto) 17.7 % Monocytes (%) (Auto) 7.1 % Eosinophils (%) (Auto) 2.6 % Basophils (%) (Auto) 0.8 % Neutrophils # (Auto) 5.4 TH/MM3 Lymphocytes # (Auto) 1.3 TH/MM3 Monocytes # (Auto) 0.5 TH/MM3 Eosinophils # (Auto) 0.2 TH/MM3 Basophils # (Auto) 0.1 TH/MM3 CBC Comment DIFF FINAL Differential Comment White Blood Count 7.7 TH/MM3 Red Blood Count 3.51 MIL/MM3 Hemoglobin 9.4 GM/DL Hematocrit 29.7 % Mean Corpuscular Volume 84.7 FL Mean Corpuscular Hemoglobin 26.9 PG Mean Corpuscular Hemoglobin 31.8 % Concent Red Cell Distribution Width 16.3 % Platelet Count 146 TH/MM3 Mean Platelet Volume 10.4 FL Sodium Level 135 MEQ/L Potassium Level 3.9 MEQ/L Chloride Level 97 MEQ/L Carbon Dioxide Level 28.2 MEQ/L Anion Gap 10 MEQ/L Blood Urea Nitrogen 14 MG/DL Creatinine 0.81 MG/DL Estimat Glomerular Filtration 67 ML/MIN Rate Random Glucose 129 MG/DL Calcium Level 8.5 MG/DL Magnesium Level 2.1 MG/DL Total Bilirubin 0.8 MG/DL Aspartate Amino Transf 35 U/L (AST/SGOT) Alanine Aminotransferase 45 U/L (ALT/SGPT) Alkaline Phosphatase 79 U/L Total Protein 6.7 GM/DL Albumin 2.9 GM/DL Date/Time Procedure Status Source Growth 05/28/16 21:37 Stool Occult Blood (FIDEL) - Final Complete Stool Stool HEMOCCULT NEGATIVE Radiology Last Impressions Cholangiopancreatography MRI 05/29/16 0000 Signed Impressions: Service Date/Time: Sunday, May 29, 2016 15:26 - CONCLUSION: Slight interval decrease in degree of extrahepatic ductal dilatation. Van Gautam MD Gall Bladder Ultrasound 05/26/16 0805 Signed Impressions: Service Date/Time: Thursday, May 26, 2016 09:27 - CONCLUSION: 1. Distended gallbladder containing stones. No wall thickening or pericholecystic fluid is present. However, there is a positive sonographic Pacheco sign. Findings therefore are suspicious for acute gallbladder obstruction/acute cholecystitis. 2. Dilated common bile duct. In retrospective review of the recent CT there is a questionable calcified tiny stone in the distal common bile duct near the ampulla. This may explain the intrahepatic hepatic bile duct dilatation. Van Kidd MD Chest X-Ray 05/26/16431 Signed Impressions: Service Date/Time: Thursday, May 26, 2016 04:58 - CONCLUSION: Stable chest with left basilar scarring and previous CABG. Mark Holguin MD Abdomen/Pelvis CT 05/26/16431 Signed Impressions: Service Date/Time: Thursday, May 26, 2016 04:50 - CONCLUSION: 1. Distended gallbladder containing gallstones. No inflammatory changes. This may be source of patient's pain. 2. Uterine leiomyomas. 3. Left basilar atelectasis/ scarring. Mark Holguin MD Abdomen: Other A/P Problem List: (1) Acute cholecystitis (2) Gallstones (3) Hypomagnesemia (4) Diabetes mellitus Assessment and Plan 85-year-old female with cholelithiasis cholecystitis Negative MRCP Dr. Sands to perform laparoscopic cholecystectomy Wednesday with possible liver biopsy discussed surgery with the pt OR has case on for 930 Attending Statement NOTE FOR SURGICAL ATTENDING, DR. LEOBARDO NEWMAN I attest that I had a [id number] encounter with the patient on the same day, and personally performed and documented my assessment and findings in the medical record. The following services were provided during this hospital visit: Chart data review, vital sign assessments/reviewing monitor data Review of consultations notes if present. Medication orders/review and/or management Ordering and/or reviewing lab tests Ordering and/or interpreting/reviewing x-rays and/or diagnostic studies Care of the patient and discussion of the patient with the care team Documentation time To help prompt me to consider important information that might be impacting today's encounter and assessment, information from prior notes written by myself or my colleagues may have been "brought forward/copy and pasted" into today's note. Problem Qualifiers (1) Diabetes mellitus: Leobardo Newman MD May 31, 2016 15:24
[2016-05-31 16:00] VITALS: BP 143/60; PULSE 83; RESP 20; TEMP 97.1; O2SAT 96
[2016-05-31 20:00] VITALS: BP 149/66; PULSE 92; RESP 17; TEMP 98.6; O2SAT 95
[2016-05-31] MEDS: ATORVASTATIN 10 MG TAB PO SCH (21:41)
[2016-05-31] MEDS: GABAPENTIN 100 MG CAP PO SCH (21:42)
[2016-05-31 23:52] LABS: MITOCHONDRIAL ABS LESS THAN 20.0 U (())
[2016-06-01] VITALS: BP 149/58; PULSE 95; RESP 20; TEMP 95; O2SAT 95
[2016-06-01 01:29] VITALS: PULSE 75
[2016-06-01 04:00] VITALS: BP 137/65; PULSE 93; RESP 18; TEMP 97.9; O2SAT 96
[2016-06-01] MEDS: INSULIN ASPART SUPPLEMENTAL SCALE SQ SCH ×4 (06:09→21:17)
[2016-06-01] MEDS: ISOSORBIDE MONONITRATE 30 MG TAB PO SCH (06:11)
[2016-06-01 07:57] VITALS: BP 135/63; PULSE 91; RESP 18; TEMP 96.8; O2SAT 93
[2016-06-01] MEDS: PANTOPRAZOLE SOD 40 MG DELAYED RELEASE TAB PO SCH ×2 (08:23→21:16)
[2016-06-01] MEDS: DOCUSATE SODIUM 100 MG CAP PO SCH ×2 (08:23→21:16)
[2016-06-01] MEDS: SODIUM CHLORIDE 0.9% FLUSH 10 ML FLUSH IV FLUSH SCH ×2 (08:23→21:17)
[2016-06-01] MEDS: SENNOSIDES 8.6 MG TAB PO SCH (08:32)
[2016-06-01] MEDS: POLYETHYLENE GLYCOL 17 GM PKG PO SCH (08:32)
[2016-06-01] MEDS: LIDOCAINE HCL 5% PATCH T-DERMAL SCH (08:33)
[2016-06-01] MEDS: BISACODYL 10 MG SUPP RECTAL SCH (08:33)
[2016-06-01] MEDS ORDERED: BUPIVACAINE/EPINEPHRINE 0.25% PF 30 ML VIAL ONE (08:46)
[2016-06-01] MEDS ORDERED: fentaNYL CITRATE 250 MCG/5 ML AMP ONE (09:50)
[2016-06-01] MEDS ORDERED: ceFAZolin 2 GM PREMIX 50 ML ONE (10:13)
[2016-06-01] MEDS ORDERED: MIDAZOLAM HCL 2 MG/2 ML VIAL ONE (10:14)
[2016-06-01] MEDS ORDERED: ACETAMINOPHEN 1000 MG/100 ML VIAL IV ONE (10:14)
[2016-06-01] MEDS ORDERED: NEOSTIGMINE 3 MG/3 ML SYR IV ONE (11:16)
[2016-06-01] MEDS ORDERED: PROPOFOL 200 MG/20 ML AMP IV ONE (11:16)
[2016-06-01] MEDS ORDERED: PHENYLEPH/NS 1000 MCG/10 ML SYR IV ONE (11:16)
[2016-06-01] MEDS ORDERED: ONDANSETRON HCL 4 MG/2 ML VIAL IV PUSH ONE (11:17)
[2016-06-01] MEDS ORDERED: NORC5TAB PO (11:29)
--- NOTE | 2016-06-01 11:29 | HHI.PR ---
cc: Benedict Sands MD Immediate Post Op Note Procedure Date: Jun 01, 2016 Pre Op Diagnosis: Cholecystitis Post Op Diagnosis: Same Surgeon: Benedict Sands Mannequin Mold Maker(s): Johana López CSA Procedure: Laparoscopic cholecystectomy Complications: None Specimen(s) removed: Gallbladder to pathology Estimated blood loss: 5 ml Anesthesia: General Drains: None IVF (500 ml) Patient to: PACU Patient Condition: Good Date/Time of Procedure: SEE SURGICAL CARE RECORD Benedict Sands MD Jun 01, 2016 11:26
[2016-06-01] MEDS ORDERED: MORPHINE SULFATE 4 MG/ML INJ IV PUSH PRN (11:30)
[2016-06-01] MEDS ORDERED: DO NOT ADM ANY ANTICOAGULANT DRUGS PRN (11:45)
[2016-06-01] MEDS: traMADol HCL 50 MG TAB PO PRN ×3 (12:41→21:17)
--- NOTE | 2016-06-01 14:50 | HHI.PR ---
Subjective Remarks The patient was seen in the PACU following surgery. She had no acute complaints other than feeling like she wanted some water. She said she had a dry mouth. She seemed okay with going home tomorrow. Discussed with nursing. Objective Vitals Vital Signs Date Time Temp Pulse Resp B/P Pulse Ox O2 Delivery O2 Flow Rate FiO2 06/01/16 12:13 97.6 87 16 143/71 99 Nasal Cannula 2 06/01/16 12:00 89 16 140/70 99 Nasal Cannula 2 06/01/16 11:45 90 16 156/70 97 Nasal Cannula 2 06/01/16 11:43 90 06/01/16 11:30 99 15 170/85 93 Room Air 06/01/16 11:21 96.9 104 15 151/77 99 Simple Mask 6 06/01/16 07:57 96.8 91 18 135/63 93 06/01/16 04:00 97.9 93 18 137/65 96 06/01/16 01:29 75 06/01/16 00:00 95.0 95 20 149/58 95 05/31/16 20:00 98.6 92 17 149/66 95 05/31/16 16:00 97.1 83 20 143/60 96 I/O 05/31/16 05/31/16 05/31/16 06/01/16 06/01/16 06/01/16 07:00 15:00 23:00 07:00 15:00 23:00 Intake Total 600 ml 550 ml Output Total 5 ml Balance 600 ml 545 ml Intake Oral 600 ml IV Total 50 ml Other 500 ml Estimated Blood Loss 5 ml # Voids 2 4 # Bowel Movements 1 1 Result Diagram: 05/30/16 0719 05/30/16 0719 Imaging Last Impressions Cholangiopancreatography MRI 05/29/16 0000 Signed Impressions: Service Date/Time: Sunday, May 29, 2016 15:26 - CONCLUSION: Slight interval decrease in degree of extrahepatic ductal dilatation. Van Gautam MD Gall Bladder Ultrasound 05/26/16 0805 Signed Impressions: Service Date/Time: Thursday, May 26, 2016 09:27 - CONCLUSION: 1. Distended gallbladder containing stones. No wall thickening or pericholecystic fluid is present. However, there is a positive sonographic Pacheco sign. Findings therefore are suspicious for acute gallbladder obstruction/acute cholecystitis. 2. Dilated common bile duct. In retrospective review of the recent CT there is a questionable calcified tiny stone in the distal common bile duct near the ampulla. This may explain the intrahepatic hepatic bile duct dilatation. Van Kidd MD Chest X-Ray 05/26/16431 Signed Impressions: Service Date/Time: Thursday, May 26, 2016 04:58 - CONCLUSION: Stable chest with left basilar scarring and previous CABG. Mark Holguin MD Abdomen/Pelvis CT 05/26/16431 Signed Impressions: Service Date/Time: Thursday, May 26, 2016 04:50 - CONCLUSION: 1. Distended gallbladder containing gallstones. No inflammatory changes. This may be source of patient's pain. 2. Uterine leiomyomas. 3. Left basilar atelectasis/ scarring. Mark Holguin MD Objective Remarks GENERAL: This is a well-nourished, well-developed patient, appearing uncomfortable. SKIN: Left upper arm abrasion. HEAD: Atraumatic. Normocephalic. . EYES: Pupils equal round and reactive. Extraocular motions intact. ENT: Nose without bleeding, purulent drainage or septal hematoma. Airway patent. NECK: Trachea midline. No JVD or lymphadenopathy. Supple CARDIOVASCULAR: Regular rate and rhythm without murmurs, gallops, or rubs. RESPIRATORY: Clear to auscultation. Breath sounds equal bilaterally. No wheezes , rales, or rhonchi. GASTROINTESTINAL: Abdomen soft, slightly tender, distended. No hepato- splenomegaly, or palpable masses. No guarding. MUSCULOSKELETAL: Bilateral lower extremities with +1 edema. No joint tenderness. NEUROLOGICAL: Awake and alert. Motor and sensory grossly within normal limits. Five out of 5 muscle strength in all muscle groups. Normal speech. PSYCH: Mood and affect appropriate. Procedures EGD Medications and IVs Current Medications Medications (Trade) Dose Ordered Sig/Micky Route Start Time Stop Time Status Last Admin (NS Flush) 2 ml UNSCH PRN IV FLUSH 05/26/16 06:45 (NS Flush) 2 ml BID IV FLUSH 05/26/16 09:00 06/01/16 08:23 (Zofran Inj) 4 mg Q6H PRN IVP 05/26/16 06:45 05/26/16 22:37 (Narcan Inj) 0.4 mg UNSCH PRN IV 05/26/16 06:45 (Lipitor) 10 mg HS PO 05/26/16 21:00 05/31/16 21:41 (Neurontin) 100 mg HS PO 05/26/16 21:00 05/31/16 21:42 (Imdur) 30 mg DAILY@07 PO 05/26/16 12:00 06/01/16 06:11 (D50w (Vial) Inj) 25 ml UNSCH PRN IV PUSH 05/26/16 08:45 (Glucagon Inj) 1 mg UNSCH PRN OTHER 05/26/16 08:45 (Miralax) 17 gm DAILY PO 05/26/16 16:15 05/31/16 09:03 (Protonix) 40 mg BID PO 05/27/16 21:00 06/01/16 08:23 (Colace) 100 mg BID PO 05/28/16 12:15 06/01/16 08:23 (Senokot) 17.2 mg DAILY PO 05/28/16 12:15 05/31/16 09:03 (Milk Of Magnesia Liq) 30 ml DAILY PRN PO 05/28/16 12:15 05/29/16 20:53 (Ultram) 50 mg Q4H PRN PO 05/29/16 13:00 06/01/16 12:41 (Dulcolax Supp) 10 mg DAILY RECTAL 05/30/16 09:00 05/30/16 08:51 (Lidoderm 5% Patch.12 Hr) 1 patch DAILY T-DERMAL 05/30/16 15:45 05/31/16 09:03 (Morphine Inj) 4 mg Q3H PRN IV PUSH 06/01/16 11:30 06/02/16 12:00 Miscellaneous Information ALL NURSING DEPARTME... UNSCH PRN .XX 06/01/16 11:45 06/02/16 11:44 A/P Problem List: (1) Acute cholecystitis ICD Code: K81.0 Status: Acute (2) Fall ICD Code: W19.XXXA Status: Chronic (3) Abrasion ICD Code: T14.8 Status: Acute (4) Diabetes mellitus ICD Code: E11.9 Status: Chronic (5) Hypertension ICD Code: I10 Status: Chronic (6) Hyperlipidemia ICD Code: E78.5 Status: Chronic Assessment and Plan 85 y/o female with a history of HTN, HLD, DM, Neuropathy, arthritis, vertigo, and gerd presented to the ED with complaints of Abdominal pain and bloating. Acute Cholecystitis/ Abdominal pain Gallbladder US shows a distended gallbladder containing stones. No wall thickening or pericholecystic fluid is present. However, there is a positive sonographic Pacheco sign and a dilated common bile duct. Abdomen/Pelvis CT shows a distended gallbladder containing gallstones; No inflammatory changes; Uterine leiomyomas and Left basilar atelectasis/scarring. General Surgery was consulted and they consulted GI. MRCP shows mild to moderate biliary ductal dilatation without evidence of duct stone or mass to explain this; Mildly prominent retroperitoneal lymph nodes. No indication for ERCP per GI. The pt's constipation resolved with an aggressive bowel regimen. EGD 05/29 unremarkable. Repeat MRCP noted. Status post cholecystectomy 06/01/16. - Pain management with a bowel regimen. - continue PPI. - Outpatient follow-up with general surgery. Generalized pain/ Weakness The pt complains of pain all over her body. ? fibromyalgia. - tramadol with Dilaudid for breakthrough. - PT/ OT. Anticipate discharge home with home health care. - Lidoderm patch. Trial of Toradol. Atypical chest pain Likely secondary to cholecystitis. EKG and troponins unremarkable. Cardiology consult appreciated. - The patient has been cleared for surgery. - Pain control as needed. Anemia Unsure of etiology. Hemoccult negative. - follow CBC and transfuse as needed. - PPI. Acute renal insufficiency May be pre-renal. S/p IVFs. - follow BMP. Improved. Fall/ upper extremity abrasion 1 week ago the patient suffered a wound on her left arm. According to patients daughter she just received a rx for Augmentin from her PCP. - Fall precautions. - Restart Augmentin 500mg PO BID. Will discontinue at this time. - Consult wound care. Appreciate recs. - PT/ OT evals. Diabetes Chronic. Glucose is well-controlled 06/01. - Accu checks with SSI. HTN Blood pressure likely exacerbated by pain. - hold medications for now. - Vasotec as needed. DVT prophylaxis: SCDs. Discharge Planning Anticipating discharge with home health care in the morning. Problem Qualifiers (1) Diabetes mellitus: (2) Hyperlipidemia: Qualified Code: E78.2 - Mixed hyperlipidemia Benedict Crump DO Jun 01, 2016 14:50
[2016-06-01 16:07] VITALS: BP 127/58; PULSE 81; RESP 18; TEMP 98.7; O2SAT 95
[2016-06-01 20:14] VITALS: BP 142/65; PULSE 92; RESP 20; TEMP 97.9
[2016-06-01] MEDS: MAGNESIUM HYDROXIDE SUSP 30 ML CUP PO PRN (21:16)
[2016-06-01] MEDS: ATORVASTATIN 10 MG TAB PO SCH (21:16)
[2016-06-01] MEDS: GABAPENTIN 100 MG CAP PO SCH (21:16)
[2016-06-02 00:20] VITALS: BP 182/76; PULSE 100; RESP 21; TEMP 97; O2SAT 92
[2016-06-02 00:37] VITALS: PULSE 73
[2016-06-02 05:30] VITALS: BP 137/63; PULSE 100; RESP 20; TEMP 97.9; O2SAT 96
[2016-06-02] MEDS: ISOSORBIDE MONONITRATE 30 MG TAB PO SCH (06:23)
[2016-06-02] MEDS: INSULIN ASPART SUPPLEMENTAL SCALE SQ SCH ×2 (06:29→12:54)
[2016-06-02 07:25] VITALS: BP 126/64; PULSE 104; RESP 22; TEMP 97.1; O2SAT 97
[2016-06-02 09:00] VITALS: PULSE 105
[2016-06-02] MEDS: BISACODYL 10 MG SUPP RECTAL SCH (09:00)
[2016-06-02] MEDS: DOCUSATE SODIUM 100 MG CAP PO SCH (10:11)
[2016-06-02] MEDS: SENNOSIDES 8.6 MG TAB PO SCH (10:11)
[2016-06-02] MEDS: POLYETHYLENE GLYCOL 17 GM PKG PO SCH (10:11)
[2016-06-02] MEDS: PANTOPRAZOLE SOD 40 MG DELAYED RELEASE TAB PO SCH (10:12)
[2016-06-02] MEDS: LIDOCAINE HCL 5% PATCH T-DERMAL SCH (10:13)
[2016-06-02] MEDS: SODIUM CHLORIDE 0.9% FLUSH 10 ML FLUSH IV FLUSH SCH (10:14)
[2016-06-02 11:23] LABS: HEMATOCRIT 26.9 % (35.0-46.0); MEAN CELL VOLUME 83.6 FL (80.0-100.0); MEAN CORPUSCULAR HEMOGLOBIN 27.6 PG (27.0-34.0); PLATELET COUNT 184 TH/MM3 (150-450); RED BLOOD COUNT 3.22 MIL/MM3 (4.00-5.30); RED CELL DISTRIBUTION WIDTH 16.3 % (11.6-17.2); REVIEW FLAG FINAL; WHITE BLOOD COUNT 9.6 TH/MM3 (4.0-11.0)
[2016-06-02 11:44] VITALS: BP 124/59; PULSE 98; RESP 20; TEMP 99.1; O2SAT 97
--- NOTE | 2016-06-02 12:24 | HHI.DCPOC ---
Discharge Care Plan Diagnosis: (1) Gallstones (2) Abrasion (3) Diabetes mellitus (4) Acute cholecystitis (5) Hypertension (6) Renal insufficiency Goals to Promote Your Health * To prevent worsening of your condition and complications * To maintain your health at the optimal level Directions to Meet Your Goals Take your medications as prescribed Follow your dietary instruction Follow activity as directed Keep your appointments as scheduled Take your immunizations and boosters as scheduled If your symptoms worsen call your PCP, if no PCP go to Urgent Care Center or Emergency Room Smoking is Dangerous to Your Health. Avoid second hand smoke Call the 24-hour hour crisis hotline for domestic abuse at Benedict Crump DO Jun 02, 2016 12:23
--- NOTE | 2016-06-02 12:26 | HHI.FF ---
Face to Face Verification Diagnosis: (1) Renal insufficiency (2) Gallstones (3) Hypertension (4) Abrasion (5) Diabetes mellitus (6) Acute cholecystitis Physical Therapy Order: Evaluate and Treat, Improve ambulation, Strength and gait training Occupational Therapy Order: Evaluate and Treat, Improve ADL, Gross motor coordination, Fine motor coordination Home Health Nursing Order: Medical education Signs/symptoms of disease process Diabetic education Medication education-adverse effect Wound care and dressing changes Nursing assessment with vital signs I have seen patient Kelin Jain on 06/02/16. My clinical findings support the need for the requested home health care services because: Ltd mobility - disease progression Deconditioned w/ increased weakness Limited ability to care for self High risk of falls I certify that my clinical findings support that this patient is homebound because: Post-op weakness Unsteady gait/balance Unsafe to leave home unassisted Benedict Crump DO Jun 02, 2016 12:26
--- NOTE | 2016-06-02 12:30 | HHI.PR ---
Subjective Subjective Notes Resting in bed Feels good to go home today Objective Vitals/I&O Vital Signs Date Time Temp Pulse Resp B/P Pulse Ox O2 Delivery O2 Flow Rate FiO2 06/02/16 11:44 99.1 98 20 124/59 97 06/01/16 12:13 Nasal Cannula 2 Labs Laboratory Tests Test 06/02/16 10:45 White Blood Count 9.6 Red Blood Count 3.22 Hemoglobin 8.9 Hematocrit 26.9 Mean Corpuscular Volume 83.6 Mean Corpuscular Hemoglobin 27.6 Mean Corpuscular Hemoglobin 33.0 Concent Red Cell Distribution Width 16.3 Platelet Count 184 Mean Platelet Volume 10.5 Date/Time Procedure Status Source Growth 05/28/16 21:37 Stool Occult Blood (FIDEL) - Final Complete Stool Stool HEMOCCULT NEGATIVE Radiology Last Impressions Cholangiopancreatography MRI 05/29/16 0000 Signed Impressions: Service Date/Time: Sunday, May 29, 2016 15:26 - CONCLUSION: Slight interval decrease in degree of extrahepatic ductal dilatation. Van Gautam MD Gall Bladder Ultrasound 05/26/1605 Signed Impressions: Service Date/Time: Thursday, May 26, 2016 09:27 - CONCLUSION: 1. Distended gallbladder containing stones. No wall thickening or pericholecystic fluid is present. However, there is a positive sonographic Pacheco sign. Findings therefore are suspicious for acute gallbladder obstruction/acute cholecystitis. 2. Dilated common bile duct. In retrospective review of the recent CT there is a questionable calcified tiny stone in the distal common bile duct near the ampulla. This may explain the intrahepatic hepatic bile duct dilatation. Van Kidd MD Chest X-Ray 05/26/16431 Signed Impressions: Service Date/Time: Thursday, May 26, 2016 04:58 - CONCLUSION: Stable chest with left basilar scarring and previous CABG. Mark Holguin MD Abdomen/Pelvis CT 05/26/16431 Signed Impressions: Service Date/Time: Thursday, May 26, 2016 04:50 - CONCLUSION: 1. Distended gallbladder containing gallstones. No inflammatory changes. This may be source of patient's pain. 2. Uterine leiomyomas. 3. Left basilar atelectasis/ scarring. Mark Holguin MD Cardiovascular: Regular Lungs: Clear Abdomen: Other (lap sites c/d/i; mildly tender; non distended ) Extremities: No edema A/P Problem List: (1) Acute cholecystitis (2) Gallstones (3) Hypomagnesemia (4) Diabetes mellitus Assessment and Plan 85 year old female with acute cholecystitis -POD1 lap axel -Low fast diet -Pain control -Follow up with Dr. Sands in about 1 week Attending Note - Dr. Sands Abdomen soft; steristrips dry D/C home The exam, history, and the medical decision-making described in the above note were completed with the assistance of the mid-level provider. I reviewed and agree with the findings presented. I attest that I had a [id number] encounter with the patient on the same day, and personally performed and documented my assessment and findings in the medical record. Problem Qualifiers (1) Diabetes mellitus: Selina Benoit Jun 02, 2016 12:30 Benedict Sands MD Jun 10, 2016 11:59
[2016-06-02] MEDS ORDERED: PANT40TA3 PO (12:31)
[2016-06-02] MEDS ORDERED: LIDO5DIS35 T-DERMAL (12:31)
--- NOTE | 2016-06-02 13:31 | HHI.DS ---
Discharge Summary Admission Date May 26, 2016 at 06:36 Discharge Date: Jun 02, 2016 Admitting Diagnosis Intractable abdominal pain, suspected acute cholecystitis (1) Acute cholecystitis ICD Code: K81.0 Diagnosis: Principal (2) Fall ICD Code: W19.XXXA (3) Abrasion ICD Code: T14.8 (4) Diabetes mellitus ICD Code: E11.9 (5) Hypertension ICD Code: I10 (6) Hyperlipidemia ICD Code: E78.5 Procedures EGD Brief History - From Admission 85 y/o female with a history of HTN, HLD, DM, Neuropathy, arthritis, vertigo, and gerd presented to the ED with complaints of Abdominal pain and bloating. She states the abdominal pain and bloating began about 1am this morning, she describes it as a sharp pain, 10/10, in the epigastric region with radiation throughout her whole abdomen. She denies any associated nausea or vomiting. Pain medication she was given she states helped, but she could use more. She states she last ate a peanut butter and jelly sandwich for dinner at about 8 pm , and prior to this she ate a donut at [facility]. At 1 am when then pain started she took one aspirin and then an hour later she took one hydrocodone, and had no relief. She was seen in the ED 1 week ago after she fell and landed on her left arm, she claims she was dizzy at this time. No LOC. She followed up with her PCP who gave her Augmentin for a wound on her left upper arm due to the fall. She currently denies any chest pain, sob, fever or chills. CBC/BMP: 06/02/16 1045 05/30/16 0719 Significant Findings Laboratory Tests Test 06/02/16 10:45 Red Blood Count 3.22 MIL/MM3 (4.00-5.30) Hemoglobin 8.9 GM/DL (11.6-15.3) Hematocrit 26.9 % (35.0-46.0) Imaging Last Impressions Cholangiopancreatography MRI 05/29/16 0000 Signed Impressions: Service Date/Time: Sunday, May 29, 2016 15:26 - CONCLUSION: Slight interval decrease in degree of extrahepatic ductal dilatation. Van Gautam MD Gall Bladder Ultrasound 05/26/16 0805 Signed Impressions: Service Date/Time: Thursday, May 26, 2016 09:27 - CONCLUSION: 1. Distended gallbladder containing stones. No wall thickening or pericholecystic fluid is present. However, there is a positive sonographic Pacheco sign. Findings therefore are suspicious for acute gallbladder obstruction/acute cholecystitis. 2. Dilated common bile duct. In retrospective review of the recent CT there is a questionable calcified tiny stone in the distal common bile duct near the ampulla. This may explain the intrahepatic hepatic bile duct dilatation. Van Kidd MD Chest X-Ray 05/26/16431 Signed Impressions: Service Date/Time: Thursday, May 26, 2016 04:58 - CONCLUSION: Stable chest with left basilar scarring and previous CABG. Mark Holguin MD Abdomen/Pelvis CT 05/26/16431 Signed Impressions: Service Date/Time: Thursday, May 26, 2016 04:50 - CONCLUSION: 1. Distended gallbladder containing gallstones. No inflammatory changes. This may be source of patient's pain. 2. Uterine leiomyomas. 3. Left basilar atelectasis/ scarring. Mark Holguin MD PE at Discharge GENERAL: This is a well-nourished, well-developed patient, in no apparent distress. SKIN: Left upper arm abrasion. HEAD: Atraumatic. Normocephalic. . EYES: Pupils equal round and reactive. Extraocular motions intact. ENT: Nose without bleeding, purulent drainage or septal hematoma. Airway patent. NECK: Trachea midline. No JVD or lymphadenopathy. Supple CARDIOVASCULAR: Regular rate and rhythm without murmurs, gallops, or rubs. RESPIRATORY: Clear to auscultation. Breath sounds equal bilaterally. No wheezes , rales, or rhonchi. GASTROINTESTINAL: Abdomen soft, slightly tender at the incision site, slightly distended. No hepato-splenomegaly, or palpable masses. No guarding. MUSCULOSKELETAL: No lower extremity edema. No joint tenderness. NEUROLOGICAL: Awake and alert. Motor and sensory grossly within normal limits. Five out of 5 muscle strength in all muscle groups. Normal speech. PSYCH: Mood and affect appropriate. Pt update on day of discharge The patient said that she had pain all over, especially around her buttocks. She said that she felt bloated. She was complaining that she couldn't find a stuffed yan bear her son brought her. Discussed with nursing, Gen. surgery and case management. Hospital Course Acute cholecystitis/ Abdominal pain Gallbladder US shows a distended gallbladder containing stones; No wall thickening or pericholecystic fluid is present; However, there is a positive sonographic Pacheco sign and a dilated common bile duct. Abdomen/Pelvis CT shows a distended gallbladder containing gallstones; No inflammatory changes; Uterine leiomyomas and left basilar atelectasis/scarring. General surgery was consulted and they consulted GI. MRCP shows mild to moderate biliary ductal dilatation without evidence of duct stone or mass to explain this; Mildly prominent retroperitoneal lymph nodes. No indication for ERCP per GI. The pt's constipation resolved with an aggressive bowel regimen. EGD 05/29 unremarkable. Repeat MRCP performed. Status post cholecystectomy 06/01/16. She received pain management with a bowel regimen. She was continued on a PPI. She will have outpatient follow-up with general surgery. Generalized pain/ Weakness She worked with PT/ OT. She received pain control. She will be discharged home with home health care. Atypical chest pain EKG and troponins unremarkable. Cardiology was consulted and no further work- up was warranted. Anemia Iron studies unremarkable. Hemoccult negative. She will follow up with her PCP. Acute renal insufficiency Resolved with IVFs. Fall/ upper extremity abrasion 1 week ago the patient suffered a wound on her left arm. According to patients daughter she just received a rx for Augmentin from her PCP. She completed a course of Augmentin. She received wound care per wound care nurse recommendations. Pt Condition on Discharge: Good Discharge Disposition: Disch w/ Home Health Serv Discharge Time: > 30 minutes Discharge Instructions DIET: Follow Instructions for: Diabetic Diet Activities you can perform: Weight Bearing as Darleen Follow up Referrals: PCP Follow-up - 1 Week Surgical - 1 Week with Benedict Sands MD New Medications: Hydrocodone-Acetaminophen ([place]) 5-325 mg Tab 1 TAB PO Q6H PRN PAIN #20 Ref 0 TAB Lidocaine Patch 12 HR (Lidoderm Patch 12 HR) 5% Patch 1 PATCH T-DERMAL DAILY Pain Management #30 PATCH Pantoprazole (Pantoprazole) 40 Mg Tab 40 MG PO DAILY Stomach pain #30 TAB Continued Medications: Atenolol (Atenolol) 50 Mg Tab 50 MG PO DAILY Blood Pressure Management #30 Ref 0 TAB Atorvastatin (Atorvastatin) 10 Mg Tab 10 MG PO HS Cholesterol Management #30 Ref 0 TAB Gabapentin (Gabapentin) 100 Mg Cap 100 MG PO HS #30 Ref 0 CAP Glimepiride (Glimepiride) 1 Mg Tab 1 MG PO DAILY Take with breakfast or first main meal Blood Sugar Management #30 Ref 0 TAB Isosorbide Dinitrate (Isosorbide Dinitrate) 30 Mg Tab 1 TAB PO DAILY Losartan (Losartan) 50 Mg Tab 50 MG PO DAILY Blood Pressure Management #30 Ref 0 TAB Meclizine (Meclizine) 25 Mg Tab 25 MG PO DIRECTED PRN VERTIGO Ref 0 TAB Metformin (Metformin) 500 Mg Tab 500 MG PO BIDPC With meals Blood Sugar Management #60 Ref 0 TAB Discontinued Medications: Hydrocodone-Acetaminophen (Hydrocodone-Acetaminophen) 5-300 Mg Tab 1 TAB PO Q4H PRN PAIN Ref 0 TAB Nitrofurantoin Monohydrate Macrocrystals (Macrobid) 100 Mg Cap 100 MG PO BID Infection Days 10 Ref 0 CAP Omeprazole (Omeprazole) 20 Mg Tab 20 MG PO DAILY #30 Ref 0 TAB Benedict Crump DO Jun 02, 2016 13:31
--- NOTE | 2016-06-04 13:06 | MP ---
cc: CAROLYN PARK M.D., AMMAR M.D. DATE OF SURGERY 06/01/2016 PROCEDURE Laparoscopic cholecystectomy PREOPERATIVE DIAGNOSIS Cholecystitis. POSTOPERATIVE DIAGNOSIS Cholecystitis. ANESTHESIA General endotracheal. SURGEON MD [place]o ESTIMATED BLOOD LOSS 5 mL. FLUIDS 500 mL crystalloid COMPLICATIONS None. DRAINS None. SPECIMEN Gallbladder and stones to pathology. PROCEDURE IN DETAIL The patient was taken to the operating room and placed on the operating table in the supine position. After an adequate level of general endotracheal anesthesia was achieved, the abdomen was prepped and draped in the usual fashion. Time-out was taken confirming the correct patient, site and procedure to be performed. The skin and subcutaneous tissue was infiltrated with local anesthetic and a supraumbilical incision was made. The incision was carried through the fascia and the peritoneal cavity was directly visualized. A 12-mm balloon trocar was inserted and the balloon inflated. The abdomen was insufflated. The patient was placed in reverse Trendelenburg position. Three 5-mm trocars were then placed with the first to the right of the falciform ligament and second and third in the right subcostal region. All entered the abdominal cavity under direct vision uneventfully. The gallbladder was then grasped and resected upward. Omental adhesions were taken down off of the gallbladder with electrocautery. The cystic duct-infundibular junction and cystic artery were both circumferentially dissected. The cystic artery was doubly clipped proximally, singly clipped on the gallbladder side and divided. The cystic duct was doubly clipped distally, singly clipped on the gallbladder side and divided. As the anatomy was clearly identified and as the common duct was not dilated, cholangiogram was not obtained. At this point, while retracting the gallbladder, the gallbladder was entered at one point and bile and small tiny stones were irrigated and aspirated. All were retrieved from the abdominal cavity. When the gallbladder was collapsed, it was then dissected off the liver bed with electrocautery. The gallbladder was placed into an EndoCatch device and then removed via the supraumbilical port while observing via the upper 5-mm trocar site. The specimen was passed off the table. The upper abdomen was revisualized by placing the camera back through the umbilical port site. The liver bed, cystic artery stump and cystic duct stump were all seen to be clean and dry. Insufflation was discontinued and the upper abdominal trocars were removed under direct vision. No bleeding was noted from the trocar sites. The laparoscope and supraumbilical port were removed, and the fascia closed at this site with simple interrupted 0 Vicryl suture. The remaining local anesthetic was injected into all of the trocar sites. The skin was closed at each of the trocar sites with 4-0 Vicryl in an interrupted buried fashion. All trocar sites were dressed with Steri-Strips. The patient was extubated and taken back to the recovery room in stable condition. She tolerated the procedure well. MD BRIAN Knowles/SSB /8:23 AM /1:01 PM MTDD
== END 2016-06-02 15:10 | disposition home or self-care (01) ==
LOC: NEPC 03:42 → NEDA 06:36 → NEPGCP 08:38 → N07B 06-01 10:33 → NEDA 06-01 12:14 → NEPGCP 06-01 12:19
PROVIDERS: ADMIT Hospitalist; ATTEND Hospitalist
DX: K29.50 Unspecified chronic gastritis without bleeding (principal); K80.12 Calculus of gallbladder with acute and chronic cholecystitis without obstruction; K44.9 Diaphragmatic hernia without obstruction or gangrene; E11.40 Type 2 diabetes mellitus with diabetic neuropathy, unspecified; M19.90 Unspecified osteoarthritis, unspecified site; D64.9 Anemia, unspecified; N17.9 Acute kidney failure, unspecified; S40.812D Abrasion of left upper arm, subsequent encounter; K59.09 Other constipation; R53.1 Weakness; E83.42 Hypomagnesemia; R07.89 Other chest pain; D25.9 Leiomyoma of uterus, unspecified; E78.5 Hyperlipidemia, unspecified; K21.9 Gastro-esophageal reflux disease without esophagitis; I25.2 Old myocardial infarction; J44.9 Chronic obstructive pulmonary disease, unspecified; I25.10 Atherosclerotic heart disease of native coronary artery without angina pectoris; I11.0 Hypertensive heart disease with heart failure; I50.9 Heart failure, unspecified; F41.9 Anxiety disorder, unspecified; F32.9 Major depressive disorder, single episode, unspecified; Z87.11 Personal history of peptic ulcer disease; Z87.891 Personal history of nicotine dependence; Z95.1 Presence of aortocoronary bypass graft; Z79.84 Long term (current) use of oral hypoglycemic drugs; Z91.041 Radiographic dye allergy status; Z88.5 Allergy status to narcotic agent; Z91.013 Allergy to seafood
CPT/HCPCS: 43239; 47562; 71010; 74176; 74181; 76377; 76705; 76937; 80048; 80053; 80074; 80076; 81001; 82103; 82105; 82272; 82390; 82550; 82728; 82948; 83520; 83540; 83550; 83690; 83735; 83880; 84100; 84484; 85025; 85027; 85610; 85730; 86038; 86140; 86256; 88304; 88305; 88312; 93005; 96361; 96374; 96375; 97110; 97162; 97167; 97530; 99285; G0378; G8987; G8988; J0131; J0690; J1170; J1815; J1885; J2250; J2270; J2370; J2405; J2710; J3010; J7042; J7050

== ENCOUNTER 2016-06-07 11:59 | Inpatient (IN) | payer OTHER, MEDICARE ==
[~2016-06-07] VITALS: Ht 157.5 cm; Wt 88.3 kg
[~2016-06-07 11:59] MED LIST changes: -HYDR-4107 PO; +LIDO5DIS35 T-DERMAL; -MACR100C2 PO; +NORC5TAB PO; -OMEP20TA PO; +PANT40TA3 PO
[2016-06-07 12:01] VITALS: BP 137/60; PULSE 58; RESP 20; TEMP 98.2; O2SAT 98
[2016-06-07 12:30] VITALS: O2SAT 97
[2016-06-07] MEDS ORDERED: SODIUM CHLORIDE 0.9% FLUSH 10 ML FLUSH IVF PRN (12:30)
[2016-06-07] MEDS ORDERED: SODIUM CHLORID 0.9% 500 ML INJ 500 ML IV ONE (12:30)
[2016-06-07] MEDS ORDERED: ASPI1TAB69 PO (12:35)
[2016-06-07] MEDS ORDERED: HYDR-3583 PO (12:35)
--- NOTE | 2016-06-07 12:36 | PD ---
HPI Chief Complaint: Fall Time Seen by Provider: 12:28 Travel History International Travel<30 days: No Contact w/Intl Traveler<30days: No Traveled to known affect area: No History of Present Illness HPI Patient is an 85-year-old female presenting to emergency department for evaluation after a fall at home this morning. Patient fell approximately one foot out of her bed, landing on the carpet. It is unknown if she hit her head, fall was unwitnessed this patient lives alone. Patient complains of pain in her buttocks. Patient had a cholecystectomy with Dr. Sands was discharged from the hospital on Wednesday. Patient reports her pain as a 9 out of 10, family member states that she took half of a 10 mg hydrocodone one hour prior to arrival. Patient's past medical history significant for coronary artery disease, type 2 diabetes, GERD, hypertension, hyperlipidemia, neuropathy, vertigo. Patient's daughter cares for her and stays with her one hour twice daily otherwise patient is home alone. Daughter states that she is in bed when she is not there. Patient normally ambulate with a cane however since the surgery she has been weak and more unsteady on her feet. PFSH Past Medical History Arthritis: Yes Asthma: No Blood Disorders: No Anxiety: Yes Depression: Yes Heart Rhythm Problems: No Cancer: No High Cholesterol: Yes Chest Pain: Yes Congestive Heart Failure: Yes COPD: Yes Coronary Artery Disease: Yes Diabetes: Yes Patient Takes Glucophage: No Diminished Hearing: No GERD: Yes Glaucoma: No Genitourinary: No Headaches: Yes Hepatitis: No Hiatal Hernia: No Hypertension: Yes Immune Disorder: No Implanted Vascular Access Dvce: No Musculoskeletal: No Neurologic: Yes (neuropathy) Reproductive: No Immunizations Current: Yes Migraines: No Myocardial Infarction: Yes (2001) Radiation Therapy: No Seizures: No Sickle Cell Disease: No Sleep Apnea: No Ulcer: Yes (STOMACH) Tetanus Vaccination: < 5 Years Influenza Vaccination: Yes PNEUMOCCOCAL Vaccine (Year): 1 ?: Not Menopausal: Yes : 10 Para: 9 Miscarriage: 1 Past Surgical History Abdominal Surgery: No AICD: No Arteriovenous Shunt: No Cholecystectomy: Yes Coronary Artery Bypass Graft: Yes (quadruple) Ear Surgery: No Endocrine Surgery: No Eye Surgery: Yes (CATARACTS) Genitourinary Surgery: No Gynecologic Surgery: No Insulin Pump: No Joint Replacement: No Oral Surgery: No Pacemaker: No Thoracic Surgery: No Tonsillectomy: Yes Other Surgery: Yes Social History Alcohol Use: No Tobacco Use: Yes (pt quit 15 years ago,) Substance Use: No Allergies-Medications (Allergen,Severity, Reaction): Coded Allergies: Contrast Media (Verified Allergy, Severe, CAN'T REMEMBER, 06/07/16) Pt states "I have no idea" to every allergy I ask her about Iodine (Verified Allergy, Severe, ON SKIN CAUSES BLISTERS, 06/07/16) Pt states "I have no idea" to every allergy I ask her about Shellfish (Verified Allergy, Severe, N/V, 06/07/16) Pt states "I have no idea" to every allergy I ask her about Codeine (Verified Allergy, Mild, NAUSEA, 06/07/16) Pt states "I have no idea" to every allergy I ask her about Reported Meds & Prescriptions Reported Meds & Active Scripts Active Pantoprazole (Pantoprazole Sodium) 40 Mg Tab 40 Mg PO DAILY Reported Aspirin 81 Mg Tabdr 81 Mg PO DAILY Hydrocodone-Acetaminophen 10-325 mg Tab 1 Tab PO Q8HR PRN Gabapentin 100 Mg Cap 100 Mg PO HS Meclizine (Meclizine HCl) 25 Mg Tab 25 Mg PO DIRECTED PRN Atorvastatin (Atorvastatin Calcium) 10 Mg Tab 10 Mg PO HS Atenolol 50 Mg Tab 50 Mg PO DAILY Losartan (Losartan Potassium) 50 Mg Tab 50 Mg PO DAILY Isosorbide Dinitrate 30 Mg Tab 1 Tab PO DAILY Glimepiride 1 Mg Tab 1 Mg PO DAILY Take with breakfast or first main meal Metformin (Metformin HCl) 500 Mg Tab 500 Mg PO BIDPC With meals Review of Systems Except as stated in HPI: all other systems reviewed are Neg Eyes: No: Visual changes HENT: No: Headaches, Neck Pain Cardiovascular: No: Chest Pain or Discomfort Respiratory: No: Shortness of Breath Gastrointestinal: Positive: Abdominal Pain, No: Nausea Musculoskeletal: Positive: Myalgias, Pain Neurologic: Positive: Weakness, Dizziness Physical Exam Narrative GENERAL: Obese, well-developed, drowsy elderly female. Resting comfortably in no acute distress. SKIN: Focused skin assessment warm/dry. 3 puncture sites on right upper quadrant and umbilicus, no erythema or induration noted, no exudates noted. HEAD: Atraumatic. Normocephalic. EYES: Pupils left pupil is larger than right, sluggish. No scleral icterus. No injection or drainage. Extraocular movements are intact. ENT: No nasal bleeding or discharge. Mucous membranes pink and moist. NECK: Trachea midline. No JVD. CARDIOVASCULAR: Regular rate and rhythm. No murmur appreciated. RESPIRATORY: No accessory muscle use. Diminished in bases. GASTROINTESTINAL: Abdomen soft, non-tender, nondistended. Hepatic and splenic margins not palpable. Surgical sites are nontender to palpation. Positive bowel sounds. MUSCULOSKELETAL: No obvious deformities. No clubbing. No cyanosis. No edema. NEUROLOGICAL: Drowsy but arousable.. No obvious cranial nerve deficits. Motor grossly within normal limits. Slow speech. PSYCHIATRIC: Appropriate mood and affect; insight and judgment normal. Data Data Last Documented VS Vital Signs Date Time Temp Pulse Resp B/P Pulse Ox O2 Delivery O2 Flow Rate FiO2 06/07/16 14:51 63 18 117/56 99 Room Air 06/07/16 12:[address] Brain W/O Iv Contrast(Rout) (06/07/16 ) Chest, Single Ap (06/07/16 ) Complete Blood Count With Diff (06/07/16 12:23) Comprehensive Metabolic Panel (06/07/16 12:23) Creatine Kinase (Cpk) (06/07/16 12:23) Urinalysis - C+S If Indicated (06/07/16 12:23) Blood Glucose (06/07/16 12:23) Ecg Monitoring (06/07/16 12:23) Iv Access Insert/Monitor (06/07/16 12:23) Cath For Specimen (06/07/16 12:23) Oximetry (06/07/16 12:23) Sodium Chloride 0.9% Flush (Ns Flush) (06/07/16 12:30) Sodium Chlorid 0.9% 500 Ml Inj (Ns 500 M (06/07/16 12:30) Pelvis, Ap Only (Routine) (06/07/16 ) Act Partial Throm Time (Ptt) (06/07/16 13:09) Prothrombin Time / Inr (Pt) (06/07/16 13:09) Troponin I (06/07/16 13:09) Electrocardiogram (06/07/16 ) Blood Glucose (06/07/16 13:10) Dextrose 50% In Shane (Syr) Inj (D50w (Syr (06/07/16 13:15) Dextrose 50% In Shane (Syr) Inj (D50w (Syr (06/07/16 13:13) Diet 1800 Ada Cons Carb (06/07/16 Dinner) Diet Heart Healthy (06/07/16 Dinner) Vital Signs (Adult) SISI.Q4H (06/07/16 14:51) ^ Other Nursing Orders (06/07/16 14:51) Case Management Consult (06/07/16 ) Admit Order (Ed Use Only) (06/07/16 14:51) Aspirin Ec (Ecotrin Ec) (06/08/16 09:00) Atenolol (Tenormin) (06/08/16 09:00) Atorvastatin (Lipitor) (06/07/16 21:00) Gabapentin (Neurontin) (06/07/16 21:00) Losartan (Cozaar) (06/08/16 09:00) Meclizine (Antivert) (06/07/16 15:15) Pantoprazole (Protonix) (06/08/16 09:00) (Nf) Isosorbide Dinitrate (06/08/16 09:00) Consult Pt Eval & Treat (06/07/16 15:05) Scd Bilateral/Knee High SISI.QSHIFT (06/07/16 15:05) Labs Laboratory Tests Test 06/07/16 06/07/16 12:42 13:23 White Blood Count 9.8 TH/MM3 Red Blood Count 3.61 MIL/MM3 Hemoglobin 9.8 GM/DL Hematocrit 29.6 % Mean Corpuscular Volume 82.0 FL Mean Corpuscular Hemoglobin 27.2 PG Mean Corpuscular Hemoglobin 33.2 % Concent Red Cell Distribution Width 15.9 % Platelet Count 316 TH/MM3 Mean Platelet Volume 10.5 FL Neutrophils (%) (Auto) 80.9 % Lymphocytes (%) (Auto) 12.0 % Monocytes (%) (Auto) 5.7 % Eosinophils (%) (Auto) 0.7 % Basophils (%) (Auto) 0.7 % Neutrophils # (Auto) 7.9 TH/MM3 Lymphocytes # (Auto) 1.2 TH/MM3 Monocytes # (Auto) 0.6 TH/MM3 Eosinophils # (Auto) 0.1 TH/MM3 Basophils # (Auto) 0.1 TH/MM3 CBC Comment DIFF FINAL Differential Comment Urine Color YELLOW Urine Turbidity CLEAR Urine pH 7.0 Urine Specific [place] 1.021 Urine Protein TRACE mg/dL Urine Glucose (UA) NEG mg/dL Urine Ketones NEG mg/dL Urine Occult Blood NEG Urine Nitrite NEG Urine Bilirubin NEG Urine Urobilinogen 2.0 MG/DL Urine Leukocyte Esterase NEG Urine RBC LESS THAN 1 /hpf Urine WBC 1 /hpf Urine Squamous Epithelial 1 /hpf Cells Urine Hyaline Casts 2 /lpf Microscopic Urinalysis Comment CATH-CULT NOT IND Sodium Level 132 MEQ/L Potassium Level 4.2 MEQ/L Chloride Level 96 MEQ/L Carbon Dioxide Level 29.0 MEQ/L Anion Gap 7 MEQ/L Blood Urea Nitrogen 11 MG/DL Creatinine 0.77 MG/DL Estimat Glomerular Filtration 71 ML/MIN Rate Random Glucose 29 MG/DL Calcium Level 9.0 MG/DL Total Bilirubin 0.4 MG/DL Aspartate Amino Transf 25 U/L (AST/SGOT) Alanine Aminotransferase 22 U/L (ALT/SGPT) Alkaline Phosphatase 69 U/L Total Creatine Kinase 72 U/L Troponin I LESS THAN 0.02 NG/ML Total Protein 7.4 GM/DL Albumin 3.2 GM/DL Prothrombin Time 11.1 SEC Prothromb Time International 1.0 RATIO Ratio Activated Partial 25.2 SEC Thromboplast Time MDM Medical Decision Making Medical Screen Exam Complete: Yes Emergency Medical Condition: Yes Interpretation(s) Laboratory Tests Test 06/07/16 06/07/16 12:42 13:23 White Blood Count 9.8 TH/MM3 Red Blood Count 3.61 MIL/MM3 Hemoglobin 9.8 GM/DL Hematocrit 29.6 % Mean Corpuscular Volume 82.0 FL Mean Corpuscular Hemoglobin 27.2 PG Mean Corpuscular Hemoglobin 33.2 % Concent Red Cell Distribution Width 15.9 % Platelet Count 316 TH/MM3 Mean Platelet Volume 10.5 FL Neutrophils (%) (Auto) 80.9 % Lymphocytes (%) (Auto) 12.0 % Monocytes (%) (Auto) 5.7 % Eosinophils (%) (Auto) 0.7 % Basophils (%) (Auto) 0.7 % Neutrophils # (Auto) 7.9 TH/MM3 Lymphocytes # (Auto) 1.2 TH/MM3 Monocytes # (Auto) 0.6 TH/MM3 Eosinophils # (Auto) 0.1 TH/MM3 Basophils # (Auto) 0.1 TH/MM3 CBC Comment DIFF FINAL Differential Comment Urine Color YELLOW Urine Turbidity CLEAR Urine pH 7.0 Urine Specific [place] 1.021 Urine Protein TRACE mg/dL Urine Glucose (UA) NEG mg/dL Urine Ketones NEG mg/dL Urine Occult Blood NEG Urine Nitrite NEG Urine Bilirubin NEG Urine Urobilinogen 2.0 MG/DL Urine Leukocyte Esterase NEG Urine RBC LESS THAN 1 /hpf Urine WBC 1 /hpf Urine Squamous Epithelial 1 /hpf Cells Urine Hyaline Casts 2 /lpf Microscopic Urinalysis Comment CATH-CULT NOT IND Sodium Level 132 MEQ/L Potassium Level 4.2 MEQ/L Chloride Level 96 MEQ/L Carbon Dioxide Level 29.0 MEQ/L Anion Gap 7 MEQ/L Blood Urea Nitrogen 11 MG/DL Creatinine 0.77 MG/DL Estimat Glomerular Filtration 71 ML/MIN Rate Random Glucose 29 MG/DL Calcium Level 9.0 MG/DL Total Bilirubin 0.4 MG/DL Aspartate Amino Transf 25 U/L (AST/SGOT) Alanine Aminotransferase 22 U/L (ALT/SGPT) Alkaline Phosphatase 69 U/L Total Creatine Kinase 72 U/L Troponin I LESS THAN 0.02 NG/ML Total Protein 7.4 GM/DL Albumin 3.2 GM/DL Prothrombin Time 11.1 SEC Prothromb Time International 1.0 RATIO Ratio Activated Partial 25.2 SEC Thromboplast Time Last Impressions Pelvis X-Ray 06/07/16 0000 Signed Impressions: Service Date/Time: Tuesday, June 07, 2016 12:39 - CONCLUSION: No acute disease. Van Chapin MD Head CT 06/07/16 0000 Signed Impressions: Service Date/Time: Tuesday, June 07, 2016 12:57 - CONCLUSION: 1. Age related atrophy. No acute intracranial abnormality is seen. 2. Persistent right maxillary sinus disease. Van Chapin MD Chest X-Ray 06/07/16 0000 Signed Impressions: Service Date/Time: Tuesday, June 07, 2016 12:36 - CONCLUSION: No acute disease. Van Chapin MD Vital Signs Date Time Temp Pulse Resp B/P Pulse Ox O2 Delivery O2 Flow Rate FiO2 06/07/16 12:23 97 Room Air 06/07/16 12:20 73 18 06/07/16 12:01 98.2 58 20 137/60 98 Room Air Differential Diagnosis Hemorrhage versus fracture versus electrolyte abnormality versus UTI versus deconditioning versus gait abnormality versus inability to care for herself versus need for placement. Narrative Course Patient is an 85-year-old female presenting to the emergency department after a fall that was unwitnessed at home this morning. Patient is drowsy likely secondary to taking hydrocodone prior to coming to the emergency department. Her vital signs are stable, she is mildly bradycardic with a heart rate in the upper 50s. Patient is on atenolol. History of vertigo, she normally ambulates with a cane however since the surgery she's been bedridden for greater than 20 hours a day. Her daughter visits her twice daily and states that she states for an hour and patient is alone for the rest of the time. Labs and imaging ordered and pending, IV access established, patient placed on telemetry monitoring and continuous pulse oximetry. Daughter at bedside. 1255 patient's family came out of the room and alerted RN that patient had a change in her mental status, patient was reassessed, she is aphasic. Patient was brought to CT emergently. 1310 patient's blood glucose was checked, blood glucose was 28. Patient was given an amp of D50. Her mentation returned to baseline, she has been given oral supplementation. Her most recent blood glucose was assessed and 78. Blood glucose is stable, most recent blood glucose was 91. My attending physician, Dr. Connolly discussed patient with Dr. Lacey who accepted admission. Diagnosis Primary Impression: Fall Qualified Code: W19.XXXA - Fall, initial encounter Additional Impressions: Weakness generalized Hypoglycemia unawareness associated with type 2 diabetes mellitus Impaired mobility and ADLs Admitting Information Admitting Physician Requests: Admit Condition: Stable Coleen Pete Ann [facility] Jun 07, 2016 12:36
[2016-06-07 12:55] LABS: AUTOMATED NEUTROPHIL # 7.9 TH/MM3 (1.8-7.7); BASOPHIL # 0.1 TH/MM3 (0-0.2); BASOPHIL % 0.7 % (0.0-2.0); EOSINOPHIL # 0.1 TH/MM3 (0-0.4); EOSINOPHIL % 0.7 % (0.0-4.0); HEMATOCRIT 29.6 % (35.0-46.0); HEMO FLAGS DIFF FINAL; LYMPHOCYTE # 1.2 TH/MM3 (1.0-4.8); MEAN CORPUSCULAR HEMOGLOBIN 27.2 PG (27.0-34.0); MEAN CORPUSCULAR HGB CONC 33.2 % (32.0-36.0); MONO % 5.7 % (0.0-8.0); NEUT % 80.9 % (16.0-70.0); PLATELET COUNT 316 TH/MM3 (150-450); RED BLOOD COUNT 3.61 MIL/MM3 (4.00-5.30); RED CELL DISTRIBUTION WIDTH 15.9 % (11.6-17.2); WHITE BLOOD COUNT 9.8 TH/MM3 (4.0-11.0)
[2016-06-07 13:00] LABS: BLOOD, URINE NEG (NEG); COMMENT (UR) CATH-CULT NOT IND; CULTURE IF INDICATED CATH CULTURE NOT IND; GLUCOSE,URINE NEG (NEG); HYALINE CAST, URINE 2 /lpf (RARE); KETONE, URINE NEG (NEG); NITRITE,URINE NEG (NEG); SQUAMOUS EPITHELIAL CELL URINE 1 /hpf (0-5); URINE COLOR YELLOW (YELLW/STRAW)
[2016-06-07 13:09] VITALS: BP 130/85; PULSE 68; RESP 18; O2SAT 98
--- NOTE | 2016-06-07 13:12 | RADRPT ---
EXAM DATE/TIME: 06/07/2016 12:39 [facility] COMPARISON: PELVIS AP ONLY, February 15, 2015, 16:33. INDICATIONS : Pelvis pain. Post fall. MEDICAL HISTORY : None. SURGICAL HISTORY : None. ENCOUNTER: Initial ACUITY: 1 day PAIN SCORE: 5/10 LOCATION: Bilateral Pelvis. FINDINGS: The study is underexposed. A single frontal view of the pelvis demonstrates no evidence of fracture. The bony pelvic ring is intact. Bony mineralization is normal. The soft tissues are intact. Vascul ar calcifications are seen. CONCLUSION: No acute disease. Van Chapin MD on June 07, 2016 at 13:10 Board Certified Radiologist. This report was verified electronically.
--- NOTE | 2016-06-07 13:12 | RADRPT ---
EXAM DATE/TIME: 06/07/2016 12:36 [facility] COMPARISON: CHEST SINGLE AP, May 26, 2016, 4:58. INDICATIONS : Syncope MEDICAL HISTORY : Hypertension. Chronic obstructive pulmonary disease. Cardiovascular disease. SURGICAL HISTORY : CABG. ENCOUNTER: Initial ACUITY: 1 day PAIN SCORE: 0/10 LOCATION: Bilateral chest FINDINGS: A single view of the chest demonstrates the lungs to be symmetrically aerated without evidence of mas s, infiltrate or effusion. The cardiomediastinal contours are unremarkable. The patient is status p ost sternotomy. There is stable linear scarring at the left base. Osseous structures are intact. CONCLUSION: No acute disease. Van Chapin MD on June 07, 2016 at 13:09 Board Certified Radiologist. This report was verified electronically.
[2016-06-07] MEDS ORDERED: DEXTROSE 50% IN WATER 50 ML SYRINGE ONE (13:13)
[2016-06-07] MEDS ORDERED: DEXTROSE 50% IN WATER 50 ML SYRINGE IV ONE (13:15)
[2016-06-07 13:23] LABS: ALKALINE PHOSPHATASE 69 U/L (45-117); ALT (GPT) 22 U/L (10-53); ANION GAP 7 MEQ/L (5-15); AST (GOT) 25 U/L (15-37); BLOOD UREA NITROGEN 11 MG/DL (7-18); CHLORIDE 96 MEQ/L (98-107); GLOMERULAR FILTRATION RATE 71 ML/MIN (>89); POTASSIUM 4.2 MEQ/L (3.5-5.1); SODIUM (NA) 132 MEQ/L (136-145); TOTAL BILIRUBIN ADULT 0.4 MG/DL (0.2-1.0)
--- NOTE | 2016-06-07 13:23 | RADRPT ---
EXAM DATE/TIME: 06/07/2016 12:57 [facility] COMPARISON: CT BRAIN W/O CONTRAST, May 18, 2016, 12:19. INDICATIONS : Altered mental status. RADIATION DOSE: 43.69 CTDIvol (mGy) MEDICAL HISTORY : Cardiovascular disease. Cerebrovascular disease. TB, Diabetic SURGICAL HISTORY : Cholecystectomy. ENCOUNTER: Initial ACUITY: 1 day PAIN SCALE: 2/10 LOCATION: cranial TECHNIQUE: Multiple contiguous axial images were obtained of the head. Using automated exposure control and adj ustment of the mA and/or kV according to patient size, radiation dose was kept as low as reasonably a chievable to obtain optimal diagnostic quality images. FINDINGS: CEREBRUM: The ventricles and cortical sulci are widened. No evidence of midline shift, mass lesion, hemorrhage or acute infarction. No extra-axial fluid collections are seen. POSTERIOR FOSSA: The cerebellum and brainstem are intact. The 4th ventricle is midline. The cerebellopontine angle i s unremarkable. EXTRACRANIAL: The visualized portion of the orbits is intact. There is mucosal disease occupying much of the right maxillary sinus. SKULL: The calvaria is intact. No evidence of skull fracture. CONCLUSION: 1. Age related atrophy. No acute intracranial abnormality is seen. 2. Persistent right maxillary sinus disease. Van Chapin MD on June 07, 2016 at 13:19 Board Certified Radiologist. This report was verified electronically.
[2016-06-07 13:29] LABS: CREATINE KINASE 72 U/L (26-192)
[2016-06-07 13:58] LABS: APTT (PATIENT) 25.2 SEC (24.3-30.1); PROTHROMBIN TIME - PATIENT 11.1 SEC (9.8-11.6)
--- NOTE | 2016-06-07 14:04 | PD ---
Physical Exam Narrative I, Dr. Marin, have reviewed the advance practice practitioner's documentation and am in agreement, met with the patient face to face, made the diagnosis, and the medical decision making was done by me. *My assessment and Findings: Patient is an 85-year-old female who is brought in because she is unable to care for self. Per daughter, she was discharged Wednesday after a cholecystectomy , and has not really been able to get out of bed. She fell out of bed today and neighbors heard her knocking on the wall because she was unable to get up. Daughter says the room to get her up and they fed her breakfast and called her primary doctor who suggested they take her to the emergency department and that she may need placement in a nursing facility. Patient is complaining of pain to her back and her leg. Exam shows no focal neurologic deficit. Data Data Last Documented VS Vital Signs Date Time Temp Pulse Resp B/P Pulse Ox O2 Delivery O2 Flow Rate FiO2 06/07/16 14:51 63 18 117/56 99 Room Air 06/07/16 12:[address] Brain W/O Iv Contrast(Rout) (06/07/16 ) Chest, Single Ap (06/07/16 ) Complete Blood Count With Diff (06/07/16 12:23) Comprehensive Metabolic Panel (06/07/16 12:23) Creatine Kinase (Cpk) (06/07/16 12:23) Urinalysis - C+S If Indicated (06/07/16 12:23) Blood Glucose (06/07/16 12:23) Ecg Monitoring (06/07/16 12:23) Iv Access Insert/Monitor (06/07/16 12:23) Cath For Specimen (06/07/16 12:23) Oximetry (06/07/16 12:23) Sodium Chloride 0.9% Flush (Ns Flush) (06/07/16 12:30) Sodium Chlorid 0.9% 500 Ml Inj (Ns 500 M (06/07/16 12:30) Pelvis, Ap Only (Routine) (06/07/16 ) Act Partial Throm Time (Ptt) (06/07/16 13:09) Prothrombin Time / Inr (Pt) (06/07/16 13:09) Troponin I (06/07/16 13:09) Electrocardiogram (06/07/16 ) Blood Glucose (06/07/16 13:10) Dextrose 50% In Shane (Syr) Inj (D50w (Syr (06/07/16 13:15) Dextrose 50% In Shane (Syr) Inj (D50w (Syr (06/07/16 13:13) Diet 1800 Ada Cons Carb (06/07/16 Dinner) Diet Heart Healthy (06/07/16 Dinner) Vital Signs (Adult) SISI.Q4H (06/07/16 14:51) Case Management Consult (06/07/16 ) Admit Order (Ed Use Only) (06/07/16 14:51) Labs Laboratory Tests Test 06/07/16 06/07/16 12:42 13:23 White Blood Count 9.8 TH/MM3 Red Blood Count 3.61 MIL/MM3 Hemoglobin 9.8 GM/DL Hematocrit 29.6 % Mean Corpuscular Volume 82.0 FL Mean Corpuscular Hemoglobin 27.2 PG Mean Corpuscular Hemoglobin 33.2 % Concent Red Cell Distribution Width 15.9 % Platelet Count 316 TH/MM3 Mean Platelet Volume 10.5 FL Neutrophils (%) (Auto) 80.9 % Lymphocytes (%) (Auto) 12.0 % Monocytes (%) (Auto) 5.7 % Eosinophils (%) (Auto) 0.7 % Basophils (%) (Auto) 0.7 % Neutrophils # (Auto) 7.9 TH/MM3 Lymphocytes # (Auto) 1.2 TH/MM3 Monocytes # (Auto) 0.6 TH/MM3 Eosinophils # (Auto) 0.1 TH/MM3 Basophils # (Auto) 0.1 TH/MM3 CBC Comment DIFF FINAL Differential Comment Urine Color YELLOW Urine Turbidity CLEAR Urine pH 7.0 Urine Specific [place] 1.021 Urine Protein TRACE mg/dL Urine Glucose (UA) NEG mg/dL Urine Ketones NEG mg/dL Urine Occult Blood NEG Urine Nitrite NEG Urine Bilirubin NEG Urine Urobilinogen 2.0 MG/DL Urine Leukocyte Esterase NEG Urine RBC LESS THAN 1 /hpf Urine WBC 1 /hpf Urine Squamous Epithelial 1 /hpf Cells Urine Hyaline Casts 2 /lpf Microscopic Urinalysis Comment CATH-CULT NOT IND Sodium Level 132 MEQ/L Potassium Level 4.2 MEQ/L Chloride Level 96 MEQ/L Carbon Dioxide Level 29.0 MEQ/L Anion Gap 7 MEQ/L Blood Urea Nitrogen 11 MG/DL Creatinine 0.77 MG/DL Estimat Glomerular Filtration 71 ML/MIN Rate Random Glucose 29 MG/DL Calcium Level 9.0 MG/DL Total Bilirubin 0.4 MG/DL Aspartate Amino Transf 25 U/L (AST/SGOT) Alanine Aminotransferase 22 U/L (ALT/SGPT) Alkaline Phosphatase 69 U/L Total Creatine Kinase 72 U/L Troponin I LESS THAN 0.02 NG/ML Total Protein 7.4 GM/DL Albumin 3.2 GM/DL Prothrombin Time 11.1 SEC Prothromb Time International 1.0 RATIO Ratio Activated Partial 25.2 SEC Thromboplast Time MDM Supervised Visit with GALEN: Yes Narrative Course While patient was in the emergency department she was suddenly unable to speak. She was taken for head CT which showed no acute abnormalities. Her sugar was found to be 28. She was given dextrose. Once dextrose was given, she returned to her baseline. She was given something to eat with continued improvement of her glucose. Per family she takes Glucophage and nothing else for her diabetes. Other labs are unremarkable. Patient will be admitted for further management. Diagnosis Primary Impression: Hypoglycemia Admitting Information Admitting Physician Requests: Admit Condition: Stable Ana Marin MD Jun 07, 2016 14:04
[2016-06-07 14:51] VITALS: BP 117/56; PULSE 63; RESP 18; O2SAT 99
[2016-06-07] MEDS ORDERED: ACETAMINOPHEN 325 MG TAB PO PRN (15:15)
[2016-06-07] MEDS ORDERED: MECLIZINE HCL 25 MG TAB PO PRN (15:15)
[2016-06-07] MEDS ORDERED: ONDANSETRON HCL 4 MG/2 ML VIAL IV PUSH PRN (15:15)
--- NOTE | 2016-06-07 15:16 | HHI.HP ---
[facility]ician Laura Hood MD Admission Diagnosis hypoglycemia, weakness, falls Diagnoses: (1) Fall Diagnosis: Principal (2) Hypoglycemia Diagnosis: Principal Chief Complaint: fall Travel History International Travel<30 Days: No Contact w/Intl Traveler <30 Da: No Traveled to Known Affected Are: No History of Present Illness patient is a 85 y/o female with history of diabetes, CAD and hypertension- s/p recent cholecystectomy ( just a few days ago). was brought to ER after she fell at home. she says that she was feeling weak after the surgery. she normally uses a cane but she says that she's not walking as much. she says that she was going to bathroom today when she fell. she doesn't recall any prodromal symptoms including chest pain, sob or dizziness. but she denies any loss of consciousness. she says that she lives alone after her few months ago. she was found to have a blood sugar of 29 at the time of presentation to ER. Review of Systems Constitutional: COMPLAINS OF: Fatigue, DENIES: Fever, Weight loss, Chills, Night Sweats Eyes: DENIES: Blurred vision, Diplopia, Vision loss, Double Vision Ears, nose, mouth, throat: DENIES: Tinnitus, Vertigo, Throat pain, Epistaxis Respiratory: DENIES: Apneas, Cough, Snoring, Wheezing, Hemoptysis, Sputum production, Shortness of breath Cardiovascular: DENIES: Chest pain, Palpitations, Syncope, Dyspnea on Exertion , PND, Lower Extremity Edema, Orthopnea, Claudication Gastrointestinal: DENIES: Abdominal pain, Black stools, Bloody stools, Constipation, Diarrhea, Nausea, Vomiting, Difficulty Swallowing, Anorexia Genitourinary: DENIES: Urinary frequency, Urgency, Hematuria, Dysuria Musculoskeletal: DENIES: Joint pain, Muscle aches, Stiffness, Joint Swelling Integumentary: DENIES: Rash Neurologic: DENIES: Abnormal gait, Headache, Localized weakness, Paresthesias, Seizures, Speech Problems, Tremor, Poor Balance Psychiatric: DENIES: Anxiety, Confusion, Mood changes, Depression, Hallucinations, Agitation, Suicidal Ideation, Homicidal Ideation, Delusions Past Family Social History Past Medical History CAD hypertension dyslipidemia Past Surgical History CABG recent cholecystectomy tonsillectomy Reported Medications Pantoprazole (Pantoprazole Sodium) 40 Mg Tab 40 Mg PO DAILY Aspirin 81 Mg Tabdr 81 Mg PO DAILY Hydrocodone-Acetaminophen 10-325 mg Tab 1 Tab PO Q8HR PRN Gabapentin 100 Mg Cap 100 Mg PO HS Meclizine (Meclizine HCl) 25 Mg Tab 25 Mg PO DIRECTED PRN Atorvastatin (Atorvastatin Calcium) 10 Mg Tab 10 Mg PO HS Atenolol 50 Mg Tab 50 Mg PO DAILY Losartan (Losartan Potassium) 50 Mg Tab 50 Mg PO DAILY Isosorbide Dinitrate 30 Mg Tab 1 Tab PO DAILY Glimepiride 1 Mg Tab 1 Mg PO DAILY Take with breakfast or first main meal Metformin (Metformin HCl) 500 Mg Tab 500 Mg PO BIDPC With meals Allergies: Coded Allergies: Contrast Media (Verified Allergy, Severe, CAN'T REMEMBER, 06/07/16) Pt states "I have no idea" to every allergy I ask her about Iodine (Verified Allergy, Severe, ON SKIN CAUSES BLISTERS, 06/07/16) Pt states "I have no idea" to every allergy I ask her about Shellfish (Verified Allergy, Severe, N/V, 06/07/16) Pt states "I have no idea" to every allergy I ask her about Codeine (Verified Allergy, Mild, NAUSEA, 06/07/16) Pt states "I have no idea" to every allergy I ask her about Active Ordered Medications Current Medications Sodium Chloride 2 ml 2 ml UNSCH PRN IVF FLUSH AFTER USING IV ACCESS; Start at 12:30 Sodium Chloride (NS 500 ml Inj) 500 ml @ 500 mls/hr BOLUS ONCE IV Last administered on 06/07/16 12:50; Start 06/07/16 at 12:30; Stop 06/07/16 at 13:29 ; Status DC Dextrose (D50w (Syr) Inj) 25 ml ONCE ONCE IV Last administered on 06/07/16 13 :17; Start 06/07/16 at 13:15; Stop 06/07/16 at 13:16; Status DC Dextrose (D50w (Syr) Inj) 50 ml STK-MED ONCE .ROUTE ; Start 06/07/16 at 13:13; Stop 06/07/16 at 13:14; Status DC Social History quit smoking years ago- drinks rarely. Physical Exam Vital Signs Vital Signs Date Time Temp Pulse Resp B/P Pulse Ox O2 Delivery O2 Flow Rate FiO2 06/07/16 14:51 63 18 117/56 99 Room Air 06/07/16 13:09 68 18 130/85 98 Room Air 06/07/16 12:30 97 Room Air 06/07/16 12:23 97 Room Air 06/07/16 12:20 73 18 06/07/16 12:01 98.2 58 20 137/60 98 Room Air Physical Exam GENERAL:eldely female, in no apparent distress. SKIN: No rashes, ecchymoses or lesions. Cool and dry. HEAD: Atraumatic. Normocephalic. No temporal or scalp tenderness. EYES: Pupils equal round and reactive. Extraocular motions intact. No scleral icterus. No injection or drainage. ENT: Nose without bleeding, purulent drainage or septal hematoma. Throat without erythema, tonsillar hypertrophy or exudate. Uvula midline. Airway patent. NECK: Trachea midline. No JVD or lymphadenopathy. Supple, nontender, no meningeal signs. CARDIOVASCULAR: Regular rate and rhythm without murmurs, gallops, or rubs. RESPIRATORY: Clear to auscultation. Breath sounds equal bilaterally. No wheezes , rales, or rhonchi. GASTROINTESTINAL: Abdomen soft, non-tender, nondistended. No hepato-splenomegaly , or palpable masses. No guarding. MUSCULOSKELETAL: Extremities without clubbing, cyanosis, or edema. No joint tenderness, effusion, or edema noted. No calf tenderness. Negative Homans sign bilaterally. NEUROLOGICAL: Awake and alert. Cranial nerves II through XII intact. Motor and sensory grossly within normal limits. Five out of 5 muscle strength in all muscle groups. Normal speech. Laboratory Laboratory Tests Test 06/07/16 06/07/16 12:42 13:23 White Blood Count 9.8 Red Blood Count 3.61 Hemoglobin 9.8 Hematocrit 29.6 Mean Corpuscular Volume 82.0 Mean Corpuscular Hemoglobin 27.2 Mean Corpuscular Hemoglobin 33.2 Concent Red Cell Distribution Width 15.9 Platelet Count 316 Mean Platelet Volume 10.5 Neutrophils (%) (Auto) 80.9 Lymphocytes (%) (Auto) 12.0 Monocytes (%) (Auto) 5.7 Eosinophils (%) (Auto) 0.7 Basophils (%) (Auto) 0.7 Neutrophils # (Auto) 7.9 Lymphocytes # (Auto) 1.2 Monocytes # (Auto) 0.6 Eosinophils # (Auto) 0.1 Basophils # (Auto) 0.1 CBC Comment DIFF FINAL Differential Comment Urine Color YELLOW Urine Turbidity CLEAR Urine pH 7.0 Urine Specific [place] 1.021 Urine Protein TRACE Urine Glucose (UA) NEG Urine Ketones NEG Urine Occult Blood NEG Urine Nitrite NEG Urine Bilirubin NEG Urine Urobilinogen 2.0 Urine Leukocyte Esterase NEG Urine RBC LESS THAN 1 Urine WBC 1 Urine Squamous Epithelial 1 Cells Urine Hyaline Casts 2 Microscopic Urinalysis Comment CATH-CULT NOT IND Sodium Level 132 Potassium Level 4.2 Chloride Level 96 Carbon Dioxide Level 29.0 Anion Gap 7 Blood Urea Nitrogen 11 Creatinine 0.77 Estimat Glomerular Filtration 71 Rate Random Glucose 29 Calcium Level 9.0 Total Bilirubin 0.4 Aspartate Amino Transf 25 (AST/SGOT) Alanine Aminotransferase 22 (ALT/SGPT) Alkaline Phosphatase 69 Total Creatine Kinase 72 Troponin I LESS THAN 0.02 Total Protein 7.4 Albumin 3.2 Prothrombin Time 11.1 Prothromb Time International 1.0 Ratio Activated Partial 25.2 Thromboplast Time Result Diagram: 06/07/16 1242 06/07/16 1242 Imaging Last Impressions Pelvis X-Ray 06/07/16 0000 Signed Impressions: Service Date/Time: Tuesday, June 07, 2016 12:39 - CONCLUSION: No acute disease. Van Chapin MD Head CT 06/07/16 0000 Signed Impressions: Service Date/Time: Tuesday, June 07, 2016 12:57 - CONCLUSION: 1. Age related atrophy. No acute intracranial abnormality is seen. 2. Persistent right maxillary sinus disease. Van Chapin MD Chest X-Ray 06/07/16 0000 Signed Impressions: Service Date/Time: Tuesday, June 07, 2016 12:36 - CONCLUSION: No acute disease. Van Chapin MD EKG; junctional bradycardia with RBBB/left fascicular block Assessment and Plan Assessment and Plan A/P - fall/ generalized weakness fall precautions- will consult PT neurology consulted. carotid doppler pending. -diabetes mellitus with hypoglycemia will start on D5W- close monitoring of blood sugar levels- will hold her home oral hypoglycemic agents -CAD- s/p CABG; hold atenolol due to bradycardia- resume her other home meds -hypertension; hold atenolol as noted above- resume other BP meds- continue to monitor -anemia of chronic disease- at her baseline- will monitor -DVT prophylaxis with SCD's -will consult case management for dc planning to SNF. Code Status full code for now per my discussion with the patient and her son. Discussed Condition With ER physician, the patient, her son and RN. Physician Certification 2 Midnight Certification Type: Admission for Inpatient Services Order for Inpatient Services The services are ordered in accordance with Medicare regulations or non- Medicare payer requirements, as applicable. In the case of services not specified as inpatient-only, they are appropriately provided as inpatient services in accordance with the 2-midnight benchmark. Estimated LOS (days): 2 days is the estimated time the patient will need to remain in the hospital, assuming treatment plan goals are met and no additional complications. Post-Hospital Plan: SNF Radhames Lacey MD Jun 07, 2016 15:15
[2016-06-07] MEDS ORDERED: PILL SPLITTER OTHER PRN (15:30)
[2016-06-07 16:27] VITALS: BP 124/90; PULSE 62; RESP 18; O2SAT 98
[2016-06-07] MEDS: DEXTROSE 5% IN WATE 1000ML INJ 1,000 ML IV SCH (16:27)
--- NOTE | 2016-06-07 17:26 | MB ---
cc: CHAYITO PRETTY M.D. DATE OF CONSULTATION 06/07/2016 The patient is an 85-year-old. A stroke alert was called earlier today and I spoke to Dr. Marin. The patient was seen while he was here in the emergency room. She has a history of recent cholecystectomy, out of the hospital within this past week and apparently was at home and fell out of bed, perhaps 1 foot high and then she was able to bang on the wall with her cane and the neighbors called family who came and subsequently brought her to the hospital. While the hospital she had sudden neurologic decline as she lost her speech and she was taken to the CT scan and the CT brain was negative for any acute process. At that time we considered tPA but considering the recent cholecystectomy and the history of being a bit unusual along with the findings, we felt she was not a good TPA candidate and I asked for chemistry to be completed on her which evidently showed a blood sugar of 29 and she was treated for that and her neurologic status is improved. She is back to baseline. By the time I saw her she was alert, pleasant, cooperative, verbalizing well, moving all extremities well. No focal neurologic deficits. Reflexes trace responses throughout and plantar responses flexor. ASSESSMENT Probable hypoglycemic event leading to decreased responsiveness. At home she fell of her bed, apparently a rather mild fall and she is status post recent cholecystectomy. This lady has been living alone and her three children live nearby and assist her. At this point she probably should be observed and subsequently admitted to rehab to have some close supervision and rehab care. I will add a carotid ultrasound study and please call me if there is any recurrence of neurologic symptoms. MD SEAN Cabrera/JULIET /3:16 PM /5:03 PM
[2016-06-07] MEDS: ATORVASTATIN 10 MG TAB PO SCH (19:49)
[2016-06-07] MEDS: GABAPENTIN 100 MG CAP PO SCH (19:49)
[2016-06-07] MEDS: ACETAMINOPHEN/HYDROcodone 325 MG/5 MG TAB PO PRN ×2 (19:50→23:47)
[2016-06-07 20:30] VITALS: BP 105/44; PULSE 61; RESP 19; TEMP 97.2; O2SAT 100
--- NOTE | 2016-06-07 21:30 | RADRPT ---
EXAM DATE/TIME: 06/07/2016 18:06 [facility] COMPARISON: No previous studies available for comparison. INDICATIONS : Transient ischemic attack. MEDICAL HISTORY : Hypercholesterolemia. Myocardial infarction. Hypertension. Congestive heart failure. Cerebrovascular accident. Coronary artery disease. Chronic obstructive pulmonary disorder. Ulcer. Gastroesopageal ref lux disease. Arthritis. C-diff. SURGICAL HISTORY : Tonsillectomy. CABG. Hysterectomy. Left knee surgery. ENCOUNTER: Initial ACUITY: 1 day PAIN SCORE: 0/10 LOCATION: Bilateral neck PEAK SYSTOLIC VELOCITIES (cm/sec): ICA/CCA RATIO: Right: 1.6 Left: 0.8 ICA: Right: 112 Left: 72 CCA: Right: 71 Left: 96 ECA: Right: 75 Left: 88 VERTEBRAL: Right: 54 antegrade Left: 65 antegrade Elevated flow velocities and ICA/CCA ratios have been found to correlate with increased degrees of vessel stenosis, calculated as percentage of diameter relative to a normal segment of distal ICA/CCA FINDINGS: RIGHT CAROTID: No significant stenosis is visualized. The waveforms are within normal limits. LEFT CAROTID: No significant stenosis is visualized. The waveforms are within normal limits. VERTEBRAL ARTERIES: Antegrade flow is seen in both vertebral arteries. CONCLUSION: Normal plaque formation in the common carotid artery without significant stenosis; hemodynamic parame ters are characteristic of less than 50% stenosis. Normal hemodynamic profile left carotid. Avila Gay MD on June 07, 2016 at 21:26 Board Certified Radiologist. This report was verified electronically.
[2016-06-08 00:05] VITALS: BP 104/41; PULSE 54; RESP 20; TEMP 97.4; O2SAT 98
[2016-06-08] MEDS ORDERED: DEXTROSE 50% IN WATER 50 ML SYRINGE IV ONE (03:00)
[2016-06-08] MEDS: ACETAMINOPHEN/HYDROcodone 325 MG/5 MG TAB PO PRN ×3 (04:06→18:12)
[2016-06-08 04:25] VITALS: BP 116/51; PULSE 65; RESP 20; TEMP 97; O2SAT 99
[2016-06-08 07:26] VITALS: BP 117/54; PULSE 56; RESP 18; TEMP 96.6; O2SAT 98
[2016-06-08] MEDS ORDERED: LOSARTAN 50 MG TAB PO SCH (09:00)
[2016-06-08] MEDS ORDERED: ATENOLOL 50 MG TAB PO SCH (09:00)
[2016-06-08] MEDS: ASPIRIN EC 81 MG TABEC PO SCH (09:24)
[2016-06-08] MEDS: PANTOPRAZOLE SOD 40 MG DELAYED RELEASE TAB PO SCH (09:24)
[2016-06-08] MEDS: ISOSORBIDE DINITRATE 20 MG TAB PO SCH (09:25)
[2016-06-08] MEDS ORDERED: ACETAMINOPHEN/HYDROcodone 325 MG/5 MG TAB PO PRN (10:15)
--- NOTE | 2016-06-08 10:15 | HHI.PR ---
Subjective Remarks complaining of generalized body ache. blood sugar readings reviewed; had a blood sugar of 38 and 46 earlier this morning. d/w the RN. Objective Vitals Vital Signs Date Time Temp Pulse Resp B/P Pulse Ox O2 Delivery O2 Flow Rate FiO2 06/08/16 07:26 96.6 56 18 117/54 98 06/08/16 04:25 97.0 65 20 116/51 99 06/08/16 00:05 97.4 54 20 104/41 98 06/07/16 20:30 97.2 61 19 105/44 100 06/07/16 16:27 62 18 124/90 98 Room Air 06/07/16 14:51 63 18 117/56 99 Room Air 06/07/16 13:09 68 18 130/85 98 Room Air 06/07/16 12:30 97 Room Air 06/07/16 12:23 97 Room Air 06/07/16 12:20 73 18 06/07/16 12:01 98.2 58 20 137/60 98 Room Air I/O 06/07/16 06/07/16 06/07/16 06/08/16 06/08/16 06/08/16 07:00 15:00 23:00 07:00 15:00 23:00 Intake Total 240 ml 240 ml 240 ml Balance 240 ml 240 ml 240 ml Intake Oral 240 ml 240 ml 240 ml # Voids 2 2 # Bowel Movements 2 0 Result Diagram: 06/07/16 1242 06/08/16 0330 Imaging Last Impressions Pelvis X-Ray 06/07/16 0000 Signed Impressions: Service Date/Time: Tuesday, June 07, 2016 12:39 - CONCLUSION: No acute disease. Van Chapin MD Head CT 06/07/16 0000 Signed Impressions: Service Date/Time: Tuesday, June 07, 2016 12:57 - CONCLUSION: 1. Age related atrophy. No acute intracranial abnormality is seen. 2. Persistent right maxillary sinus disease. Van Chapin MD Chest X-Ray 06/07/16 0000 Signed Impressions: Service Date/Time: Tuesday, June 07, 2016 12:36 - CONCLUSION: No acute disease. Van Chapin MD Carotid Artery Ultrasound 06/07/16 0000 Signed Impressions: Service Date/Time: Tuesday, June 07, 2016 18:06 - CONCLUSION: Normal plaque formation in the common carotid artery without significant stenosis; hemodynamic parameters are characteristic of less than 50%% stenosis. Normal hemodynamic profile left carotid. Avila Gay MD Objective Remarks GENERAL: elderly female, in no apparent distress. CARDIOVASCULAR: Regular rate and regular rhythm without murmurs, gallops, or rubs. RESPIRATORY: Clear to auscultation. Breath sounds equal bilaterally. No wheezes , rales, or rhonchi. GASTROINTESTINAL: Abdomen soft, non-tender, nondistended. Normal, active bowel sounds MUSCULOSKELETAL: Extremities without clubbing, cyanosis, or edema. NEURO: Alert & Oriented x4 to person, place, time, situation. Moves all ext x4 Procedures none Medications and IVs Current Medications Sodium Chloride 2 ml 2 ml UNSCH PRN IVF FLUSH AFTER USING IV ACCESS; Start at 12:30 Sodium Chloride (NS 500 ml Inj) 500 ml @ 500 mls/hr BOLUS ONCE IV Last administered on 06/07/16 12:50; Start 06/07/16 at 12:30; Stop 06/07/16 at 13:29 ; Status DC Dextrose (D50w (Syr) Inj) 25 ml ONCE ONCE IV Last administered on 06/07/16 13 :17; Start 06/07/16 at 13:15; Stop 06/07/16 at 13:16; Status DC Dextrose (D50w (Syr) Inj) 50 ml STK-MED ONCE .ROUTE ; Start 06/07/16 at 13:13; Stop 06/07/16 at 13:14; Status DC Aspirin (Ecotrin Ec) 81 mg DAILY PO Last administered on 06/08/16 09:24; Start 06/08/16 at 09:00 Atenolol (Tenormin) 50 mg DAILY PO ; Start 06/08/16 at 09:00; Status Hold Atorvastatin Calcium (Lipitor) 10 mg HS PO Last administered on 06/07/16 19:49 ; Start 06/07/16 at 21:00 Gabapentin (Neurontin) 100 mg HS PO Last administered on 06/07/16 19:49; Start 06/07/16 at 21:00 Losartan Potassium (Cozaar) 50 mg DAILY PO ; Start 06/08/16 at 09:00 Meclizine HCl (Antivert) 25 mg Q8HR PRN PO VERTIGO Last administered on 21:12; Start 06/07/16 at 15:15 Pantoprazole Sodium (Protonix) 40 mg DAILY PO Last administered on 06/08/16 09 :24; Start 06/08/16 at 09:00 Isosorbide Dinitrate (Isordil) 30 mg DAILY PO Last administered on 06/08/16 09 :25; Start 06/08/16 at 09:00 Acetaminophen (Tylenol) 650 mg Q4H PRN PO FEVER/PAIN <5 Last administered on 21:13; Start 06/07/16 at 15:15 Acetaminophen/ Hydrocodone Bitart ([place] 5-325 Mg) 1 tab Q4H PRN PO PAIN >5 Last administered on 06/08/16 09:25; Start 06/07/16 at 15:15 Ondansetron HCl 4 mg 4 mg Q8HR PRN IV PUSH NAUSEA; Start 06/07/16 at 15:15 Dextrose (D5W 1000 ml Inj) 1,000 ml @ 60 mls/hr [id number] IV Last administered on 06/07/16 16:27; Start 06/07/16 at 15:15 Miscellaneous (Pill Splitter) 1 ea UNSCH PRN OTHER SEE LABEL COMMENTS; Start at 15:30 Dextrose (D50w (Syr) Inj) 50 ml ONCE ONCE IV Last administered on 06/08/16 03 :05; Start 06/08/16 at 03:00; Stop 06/08/16 at 03:01; Status DC A/P Assessment and Plan A/P - fall/ generalized weakness fall precautions- consulted PT. neurology consult appreciated. carotid doppler with no significant stenosis. -diabetes mellitus with hypoglycemia continue D5W- close monitoring of blood sugar levels- will hold her home oral hypoglycemic agents will consider switching to D10 if further hypoglycemic episodes occur. -CAD- s/p CABG; hold atenolol and cozaar due to bradycardia and low-normal BP's - resumed isordil. -hypertension; hold atenolol and cozaar as noted above- resumed Isordil- will continue to monitor and adjust the regimen as needed. -anemia of chronic disease- at her baseline- will monitor -DVT prophylaxis with SCD's - consulted case management for dc planning to SNF. Discharge Planning dc planning to SNF within the next 24-48 hrs if stable. Radhames Lacey MD Jun 08, 2016 10:15
[2016-06-08] MEDS ORDERED: HYDR-3516 PO (10:19)
[2016-06-08 12:08] VITALS: BP 97/44; PULSE 56; RESP 18; TEMP 96.2; O2SAT 98
[2016-06-08 15:19] VITALS: BP 122/56; PULSE 53; RESP 18; TEMP 96.3; O2SAT 100
--- NOTE | 2016-06-08 17:49 | EKG ---
Date Performed: 06/07/2016 Time Performed: 13:25:29 PTAGE: 85 years EKG: Sinus BRADYCARDIA RIGHT BUNDLE BRANCH BLOCK LEFT ANTERIOR FASCICULAR BLOCK Prolonged QT int erval ABNORMAL ECG PREVIOUS TRACING : 05/28/2016 02.29 DOCTOR: Chris Miranda Interpretating Date/Time 06/08/2016 17:47:43
[2016-06-08 19:00] VITALS: BP 107/78; PULSE 66; RESP 19; TEMP 97.2; O2SAT 96
[2016-06-08] MEDS ORDERED: DOCUSATE SODIUM 100 MG CAP PO PRN (19:45)
[2016-06-08] MEDS: GABAPENTIN 100 MG CAP PO SCH (23:09)
[2016-06-08] MEDS: ATORVASTATIN 10 MG TAB PO SCH (23:09)
[2016-06-09] VITALS (7 sets, daily range): BP systolic 84–138; BP diastolic 47–60; PULSE 56–95; RESP 16–20; TEMP 96.2–98.9; O2SAT 98–99
[2016-06-09] MEDS: DEXTROSE 5% IN WATE 1000ML INJ 1,000 ML IV SCH (03:04)
[2016-06-09] MEDS: ASPIRIN EC 81 MG TABEC PO SCH (09:09)
[2016-06-09] MEDS: PANTOPRAZOLE SOD 40 MG DELAYED RELEASE TAB PO SCH (09:09)
[2016-06-09] MEDS: ISOSORBIDE DINITRATE 20 MG TAB PO SCH (09:10)
--- NOTE | 2016-06-09 13:11 | HHI.PR ---
Subjective Remarks resting comfortably with no distress. off the IV fluid since last night and blood sugar stable over night. BP noted on low side. d/w the RN and no other acute issues over night. Objective Vitals Vital Signs Date Time Temp Pulse Resp B/P Pulse Ox O2 Delivery O2 Flow Rate FiO2 06/09/16 12:55 96.2 71 20 84/55 98 06/09/16 08:00 96.9 66 20 105/47 99 06/09/16 00:00 97.7 56 17 134/60 98 06/08/16 19:00 97.2 66 19 107/78 96 06/08/16 15:19 96.3 53 18 122/56 100 I/O 06/08/16 06/08/16 06/08/16 06/09/16 06/09/16 06/09/16 07:00 15:00 23:00 07:00 15:00 23:00 Intake Total 240 ml 720 ml 480 ml 480 ml Balance 240 ml 720 ml 480 ml 480 ml Intake Oral 240 ml 720 ml 480 ml 480 ml # Voids 2 3 3 5 # Bowel Movements 0 0 0 0 Result Diagram: 06/07/16 1242 06/08/16 0330 Imaging Last Impressions Pelvis X-Ray 06/07/16 0000 Signed Impressions: Service Date/Time: Tuesday, June 07, 2016 12:39 - CONCLUSION: No acute disease. Van Chapin MD Head CT 06/07/16 0000 Signed Impressions: Service Date/Time: Tuesday, June 07, 2016 12:57 - CONCLUSION: 1. Age related atrophy. No acute intracranial abnormality is seen. 2. Persistent right maxillary sinus disease. Van Chapin MD Chest X-Ray 06/07/16 0000 Signed Impressions: Service Date/Time: Tuesday, June 07, 2016 12:36 - CONCLUSION: No acute disease. Van Chapin MD Carotid Artery Ultrasound 06/07/16 0000 Signed Impressions: Service Date/Time: Tuesday, June 07, 2016 18:06 - CONCLUSION: Normal plaque formation in the common carotid artery without significant stenosis; hemodynamic parameters are characteristic of less than 50%% stenosis. Normal hemodynamic profile left carotid. Avila Gay MD Objective Remarks GENERAL: elderly female, in no apparent distress. CARDIOVASCULAR: Regular rate and regular rhythm without murmurs, gallops, or rubs. RESPIRATORY: Clear to auscultation. Breath sounds equal bilaterally. No wheezes , rales, or rhonchi. GASTROINTESTINAL: Abdomen soft, non-tender, nondistended. Normal, active bowel sounds MUSCULOSKELETAL: Extremities without clubbing, cyanosis, or edema. NEURO: Alert & Oriented x4 to person, place, time, situation. Moves all ext x4 Procedures none Medications and IVs Current Medications Sodium Chloride 2 ml 2 ml UNSCH PRN IVF FLUSH AFTER USING IV ACCESS; Start at 12:30 Sodium Chloride (NS 500 ml Inj) 500 ml @ 500 mls/hr BOLUS ONCE IV Last administered on 06/07/16 12:50; Start 06/07/16 at 12:30; Stop 06/07/16 at 13:29 ; Status DC Dextrose (D50w (Syr) Inj) 25 ml ONCE ONCE IV Last administered on 06/07/16 13 :17; Start 06/07/16 at 13:15; Stop 06/07/16 at 13:16; Status DC Dextrose (D50w (Syr) Inj) 50 ml STK-MED ONCE .ROUTE ; Start 06/07/16 at 13:13; Stop 06/07/16 at 13:14; Status DC Aspirin (Ecotrin Ec) 81 mg DAILY PO Last administered on 06/09/16 09:09; Start 06/08/16 at 09:00 Atenolol (Tenormin) 50 mg DAILY PO ; Start 06/08/16 at 09:00; Status Hold Atorvastatin Calcium (Lipitor) 10 mg HS PO Last administered on 06/08/16 23:09 ; Start 06/07/16 at 21:00 Gabapentin (Neurontin) 100 mg HS PO Last administered on 06/08/16 23:09; Start 06/07/16 at 21:00 Losartan Potassium (Cozaar) 50 mg DAILY PO ; Start 06/08/16 at 09:00; Status Hold Meclizine HCl (Antivert) 25 mg Q8HR PRN PO VERTIGO Last administered on 21:12; Start 06/07/16 at 15:15 Pantoprazole Sodium (Protonix) 40 mg DAILY PO Last administered on 06/09/16 09 :09; Start 06/08/16 at 09:00 Isosorbide Dinitrate (Isordil) 30 mg DAILY PO Last administered on 06/08/16 09 :25; Start 06/08/16 at 09:00 Acetaminophen (Tylenol) 650 mg Q4H PRN PO FEVER Last administered on 06/07/16 21:13; Start 06/07/16 at 15:15 Acetaminophen/ Hydrocodone Bitart ([place] 5-325 Mg) 1 tab Q4H PRN PO PAIN < 5 Last administered on 06/08/16 18:12; Start 06/07/16 at 15:15 Ondansetron HCl 4 mg 4 mg Q8HR PRN IV PUSH NAUSEA; Start 06/07/16 at 15:15 Dextrose (D5W 1000 ml Inj) 1,000 ml @ 40 mls/hr Q24H IV Last administered on 16:27; Start 06/07/16 at 15:15 Miscellaneous (Pill Splitter) 1 ea UNSCH PRN OTHER SEE LABEL COMMENTS; Start at 15:30 Dextrose (D50w (Syr) Inj) 50 ml ONCE ONCE IV Last administered on 06/08/16 03 :05; Start 06/08/16 at 03:00; Stop 06/08/16 at 03:01; Status DC Acetaminophen/ Hydrocodone Bitart ([place] 5-325 Mg) 2 tab Q4H PRN PO PAIN > 5; Start 06/08/16 at 10:15 Docusate Sodium (Colace) 100 mg BID PRN PO CONSTIPATION; Start 06/08/16 at 19: 45 A/P Assessment and Plan A/P - fall/ generalized weakness fall precautions- consulted PT. neurology consult appreciated. carotid doppler with no significant stenosis. -diabetes mellitus with hypoglycemia resolved- continue to hold her home oral hypoglycemic agents. continue with accu-check; will consider restarting metformin if blood sugar remains stable- f/u as outpatient. -CAD- s/p CABG; hold atenolol and cozaar due to bradycardia and low-normal BP's - resumed isordil. -hypertension; hold atenolol and cozaar as noted above- resumed Isordil- will continue to monitor and adjust the regimen as needed. -anemia of chronic disease- at her baseline- will monitor -DVT prophylaxis with SCD's - consulted case management for dc planning to SNF. Discharge Planning dc to SNF when arrangements made. see med list. f/u; pcp. d/w the patient and RN. d/w the case management. time spent 31 min. Radhames Lacey MD Jun 09, 2016 13:11
--- NOTE | 2016-06-09 13:13 | HHI.DS ---
Discharge Summary Admission Date Jun 07, 2016 at 14:54 Discharge Date: Jun 09, 2016 Admitting Diagnosis hypoglycemia, weakness, falls (1) Fall ICD Code: W19.XXXA Diagnosis: Principal (2) Hypoglycemia ICD Code: E16.2 Diagnosis: Principal Procedures none Brief History - From Admission patient is a 85 y/o female with history of diabetes, CAD and hypertension- s/p recent cholecystectomy ( just a few days ago). was brought to ER after she fell at home. she says that she was feeling weak after the surgery. she normally uses a cane but she says that she's not walking as much. she says that she was going to bathroom today when she fell. she doesn't recall any prodromal symptoms including chest pain, sob or dizziness. but she denies any loss of consciousness. she says that she lives alone after her few months ago. she was found to have a blood sugar of 29 at the time of presentation to ER. CBC/BMP: 06/07/16 1242 06/08/16 0330 Significant Findings Laboratory Tests Test 06/07/16 06/08/16 12:42 03:30 Red Blood Count 3.61 MIL/MM3 (4.00-5.30) Hemoglobin 9.8 GM/DL (11.6-15.3) Hematocrit 29.6 % (35.0-46.0) Neutrophils (%) (Auto) 80.9 % (16.0-70.0) Neutrophils # (Auto) 7.9 TH/MM3 (1.8-7.7) Sodium Level 132 MEQ/L (136-145) Chloride Level 96 MEQ/L (98-107) Estimat Glomerular Filtration 71 ML/MIN (>89) Rate Random Glucose 29 MG/DL 129 MG/DL (74-106) (74-106) Troponin I LESS THAN 0.02 NG/ML (0.02-0.05) Albumin 3.2 GM/DL (3.4-5.0) Imaging Last Impressions Pelvis X-Ray 06/07/16 0000 Signed Impressions: Service Date/Time: Tuesday, June 07, 2016 12:39 - CONCLUSION: No acute disease. Van Chapin MD Head CT 06/07/16 0000 Signed Impressions: Service Date/Time: Tuesday, June 07, 2016 12:57 - CONCLUSION: 1. Age related atrophy. No acute intracranial abnormality is seen. 2. Persistent right maxillary sinus disease. Van Chapin MD Chest X-Ray 06/07/16 0000 Signed Impressions: Service Date/Time: Tuesday, June 07, 2016 12:36 - CONCLUSION: No acute disease. Van Chapin MD Carotid Artery Ultrasound 06/07/16 0000 Signed Impressions: Service Date/Time: Tuesday, June 07, 2016 18:06 - CONCLUSION: Normal plaque formation in the common carotid artery without significant stenosis; hemodynamic parameters are characteristic of less than 50%% stenosis. Normal hemodynamic profile left carotid. Avila Gay MD PE at Discharge GENERAL: elderly female, in no apparent distress. CARDIOVASCULAR: Regular rate and regular rhythm without murmurs, gallops, or rubs. RESPIRATORY: Clear to auscultation. Breath sounds equal bilaterally. No wheezes , rales, or rhonchi. GASTROINTESTINAL: Abdomen soft, non-tender, nondistended. Normal, active bowel sounds MUSCULOSKELETAL: Extremities without clubbing, cyanosis, or edema. NEURO: Alert & Oriented x4 to person, place, time, situation. Moves all ext x4 Hospital Course - fall/ generalized weakness fall precautions- consulted PT. neurology consult appreciated. carotid doppler with no significant stenosis. -diabetes mellitus with hypoglycemia resolved- continue to hold her home oral hypoglycemic agents. continue with accu-check; will consider restarting metformin if blood sugar remains stable- f/u as outpatient. -CAD- s/p CABG; hold atenolol and cozaar due to bradycardia and low-normal BP's - resumed isordil. -hypertension; hold atenolol and cozaar as noted above- resumed Isordil- will continue to monitor and adjust the regimen as needed. -anemia of chronic disease- at her baseline- will monitor -DVT prophylaxis with SCD's - consulted case management for dc planning to SNF. Pt Condition on Discharge: Fair Discharge Disposition: Discharge to SNF Discharge Time: > 30 minutes Discharge Instructions DIET: Follow Instructions for: Heart Healthy Diet, Diabetic Diet Activities you can perform: Regular-No Restrictions Follow up Referrals: PCP Follow-up New Medications: Hydrocodone-Acetaminophen (Hydrocodone-Acetaminophen) 5-325 mg Tab 1 TAB PO Q4H PRN pain #20 Ref 0 TAB Continued Medications: Aspirin (Aspirin) 81 Mg Tabdr 81 MG PO DAILY TAB Atorvastatin (Atorvastatin) 10 Mg Tab 10 MG PO HS Cholesterol Management #30 Ref 0 TAB Gabapentin (Gabapentin) 100 Mg Cap 100 MG PO HS #30 Ref 0 CAP Isosorbide Dinitrate (Isosorbide Dinitrate) 30 Mg Tab 1 TAB PO DAILY Meclizine (Meclizine) 25 Mg Tab 25 MG PO DIRECTED PRN VERTIGO Ref 0 TAB Pantoprazole (Pantoprazole) 40 Mg Tab 40 MG PO DAILY Stomach pain #30 TAB Discontinued Medications: Atenolol (Atenolol) 50 Mg Tab 50 MG PO DAILY Blood Pressure Management #30 Ref 0 TAB Glimepiride (Glimepiride) 1 Mg Tab 1 MG PO DAILY Take with breakfast or first main meal Blood Sugar Management #30 Ref 0 TAB Hydrocodone-Acetaminophen (Hydrocodone-Acetaminophen) 10-325 mg Tab 1 TAB PO Q8HR PRN PAIN #30 Ref 0 TAB Losartan (Losartan) 50 Mg Tab 50 MG PO DAILY Blood Pressure Management #30 Ref 0 TAB Metformin (Metformin) 500 Mg Tab 500 MG PO BIDPC With meals Blood Sugar Management #60 Ref 0 TAB Radhames Lacey MD Jun 09, 2016 13:13
--- NOTE | 2016-06-09 13:13 | HHI.DCPOC ---
Discharge Care Plan Diagnosis: (1) Hypoglycemia (2) Fall Your Health Problems Are: Fluctuating Blood Sugars Goals to Promote Your Health * To prevent worsening of your condition and complications * To maintain your health at the optimal level Directions to Meet Your Goals Take your medications as prescribed Follow your dietary instruction Follow activity as directed Keep your appointments as scheduled Take your immunizations and boosters as scheduled If your symptoms worsen call your PCP, if no PCP go to Urgent Care Center or Emergency Room Smoking is Dangerous to Your Health. Avoid second hand smoke Call the 24-hour hour crisis hotline for domestic abuse at Radhames Lacey MD Jun 09, 2016 13:13
[2016-06-09] MEDS: GABAPENTIN 100 MG CAP PO SCH (20:34)
[2016-06-09] MEDS: ACETAMINOPHEN/HYDROcodone 325 MG/5 MG TAB PO PRN (20:35)
[2016-06-09] MEDS: ATORVASTATIN 10 MG TAB PO SCH (20:35)
[2016-06-10] VITALS: BP 109/40; PULSE 62; RESP 17; TEMP 96.7; O2SAT 99
[2016-06-10 04:20] VITALS: BP 121/47; PULSE 67; RESP 18; TEMP 98.3; O2SAT 96
[2016-06-10] MEDS: ACETAMINOPHEN/HYDROcodone 325 MG/5 MG TAB PO PRN (07:36)
[2016-06-10] MEDS: ASPIRIN EC 81 MG TABEC PO SCH (07:36)
[2016-06-10] MEDS: ISOSORBIDE DINITRATE 20 MG TAB PO SCH (07:37)
[2016-06-10] MEDS: PANTOPRAZOLE SOD 40 MG DELAYED RELEASE TAB PO SCH (07:37)
[2016-06-10 07:56] VITALS: PULSE 60
[2016-06-10 08:00] VITALS: BP 105/49; PULSE 73; RESP 20; TEMP 97.4; O2SAT 97
[2016-06-10] MEDS ORDERED: MAGNESIUM HYDROXIDE SUSP 30 ML CUP PO PRN (08:30)
--- NOTE | 2016-06-10 11:07 | HHI.PR ---
Subjective Remarks resting comfortably with no distress. denies pain. accu-checks stable. d/w the RN. Objective Vitals Vital Signs Date Time Temp Pulse Resp B/P Pulse Ox O2 Delivery O2 Flow Rate FiO2 06/10/16 08:50 18 06/10/16 07:56 60 06/10/16 04:20 98.3 67 18 121/47 96 06/10/16 00:00 96.7 62 17 109/40 99 06/09/16 20:12 98.9 68 16 136/59 99 06/09/16 17:02 98.0 64 16 138/51 99 06/09/16 13:40 100/56 06/09/16 12:55 96.2 71 20 84/55 98 I/O 06/09/16 06/09/16 06/09/16 06/10/16 06/10/16 06/10/16 07:00 15:00 23:00 07:00 15:00 23:00 Intake Total 480 ml 720 ml 720 ml 240 ml Balance 480 ml 720 ml 720 ml 240 ml Intake Oral 480 ml 720 ml 720 ml 240 ml IV Total 0 ml # Voids 5 3 4 5 # Bowel Movements 0 0 0 0 Result Diagram: 06/07/16 1242 06/08/16 0330 Imaging Last Impressions Pelvis X-Ray 06/07/16 0000 Signed Impressions: Service Date/Time: Tuesday, June 07, 2016 12:39 - CONCLUSION: No acute disease. Van Chapin MD Head CT 06/07/16 0000 Signed Impressions: Service Date/Time: Tuesday, June 07, 2016 12:57 - CONCLUSION: 1. Age related atrophy. No acute intracranial abnormality is seen. 2. Persistent right maxillary sinus disease. Van Chapin MD Chest X-Ray 06/07/16 0000 Signed Impressions: Service Date/Time: Tuesday, June 07, 2016 12:36 - CONCLUSION: No acute disease. Van Chapin MD Carotid Artery Ultrasound 06/07/16 0000 Signed Impressions: Service Date/Time: Tuesday, June 07, 2016 18:06 - CONCLUSION: Normal plaque formation in the common carotid artery without significant stenosis; hemodynamic parameters are characteristic of less than 50%% stenosis. Normal hemodynamic profile left carotid. Avila Gay MD Objective Remarks GENERAL: elderly female, in no apparent distress. CARDIOVASCULAR: Regular rate and regular rhythm without murmurs, gallops, or rubs. RESPIRATORY: Clear to auscultation. Breath sounds equal bilaterally. No wheezes , rales, or rhonchi. GASTROINTESTINAL: Abdomen soft, non-tender, nondistended. Normal, active bowel sounds MUSCULOSKELETAL: Extremities without clubbing, cyanosis, or edema. NEURO: Alert & Oriented x4 to person, place, time, situation. Moves all ext x4 Procedures none Medications and IVs Current Medications Sodium Chloride 2 ml 2 ml UNSCH PRN IVF FLUSH AFTER USING IV ACCESS; Start at 12:30 Sodium Chloride (NS 500 ml Inj) 500 ml @ 500 mls/hr BOLUS ONCE IV Last administered on 06/07/16 12:50; Start 06/07/16 at 12:30; Stop 06/07/16 at 13:29 ; Status DC Dextrose (D50w (Syr) Inj) 25 ml ONCE ONCE IV Last administered on 06/07/16 13 :17; Start 06/07/16 at 13:15; Stop 06/07/16 at 13:16; Status DC Dextrose (D50w (Syr) Inj) 50 ml STK-MED ONCE .ROUTE ; Start 06/07/16 at 13:13; Stop 06/07/16 at 13:14; Status DC Aspirin (Ecotrin Ec) 81 mg DAILY PO Last administered on 06/10/16 07:36; Start 06/08/16 at 09:00 Atenolol (Tenormin) 50 mg DAILY PO ; Start 06/08/16 at 09:00; Status Hold Atorvastatin Calcium (Lipitor) 10 mg HS PO Last administered on 06/09/16 20:35 ; Start 06/07/16 at 21:00 Gabapentin (Neurontin) 100 mg HS PO Last administered on 06/09/16 20:34; Start 06/07/16 at 21:00 Losartan Potassium (Cozaar) 50 mg DAILY PO ; Start 06/08/16 at 09:00; Status Hold Meclizine HCl (Antivert) 25 mg Q8HR PRN PO VERTIGO Last administered on 21:12; Start 06/07/16 at 15:15 Pantoprazole Sodium (Protonix) 40 mg DAILY PO Last administered on 06/10/16 07 :37; Start 06/08/16 at 09:00 Isosorbide Dinitrate (Isordil) 30 mg DAILY PO Last administered on 06/10/16 07 :37; Start 06/08/16 at 09:00 Acetaminophen (Tylenol) 650 mg Q4H PRN PO FEVER Last administered on 06/07/16 21:13; Start 06/07/16 at 15:15 Acetaminophen/ Hydrocodone Bitart ([place] 5-325 Mg) 1 tab Q4H PRN PO PAIN < 5 Last administered on 06/10/16 07:36; Start 06/07/16 at 15:15 Ondansetron HCl 4 mg 4 mg Q8HR PRN IV PUSH NAUSEA; Start 06/07/16 at 15:15 Dextrose (D5W 1000 ml Inj) 1,000 ml @ 40 mls/hr Q24H IV Last administered on 16:27; Start 06/07/16 at 15:15; Status Hold Miscellaneous (Pill Splitter) 1 ea UNSCH PRN OTHER SEE LABEL COMMENTS; Start at 15:30 Dextrose (D50w (Syr) Inj) 50 ml ONCE ONCE IV Last administered on 06/08/16 03 :05; Start 06/08/16 at 03:00; Stop 06/08/16 at 03:01; Status DC Acetaminophen/ Hydrocodone Bitart ([place] 5-325 Mg) 2 tab Q4H PRN PO PAIN > 5; Start 06/08/16 at 10:15 Docusate Sodium (Colace) 100 mg BID PRN PO CONSTIPATION Last administered on 16:38; Start 06/08/16 at 19:45 Magnesium Hydroxide (Milk Of Magnesia Liq) 30 ml DAILY PRN PO CONSTIPATION Last administered on 06/10/16 08:56; Start 06/10/16 at 08:30 A/P Assessment and Plan A/P - fall/ generalized weakness fall precautions- consulted PT. neurology consult appreciated. carotid doppler with no significant stenosis. -diabetes mellitus with hypoglycemia resolved- continue to hold her home oral hypoglycemic agents. continue with accu-check; will consider restarting metformin if blood sugar remains stable- f/u as outpatient. -CAD- s/p CABG; hold atenolol and cozaar due to bradycardia and low-normal BP's - resumed isordil. -hypertension; hold atenolol and cozaar as noted above- resumed Isordil- will continue to monitor and adjust the regimen as needed. -anemia of chronic disease- at her baseline- will monitor -DVT prophylaxis with SCD's - consulted case management for dc planning to SNF. Discharge Planning dc to SNF when arrangements made. see med list. f/u; pcp. d/w the patient and RN. d/w the case management. time spent 31 min. Radhames Lacey MD Jun 10, 2016 11:07
[2016-06-10 12:00] VITALS: BP 87/51; PULSE 75; RESP 20; TEMP 97.6; O2SAT 100
[2016-06-10 16:12] VITALS: BP 135/60; PULSE 90; RESP 18; TEMP 96.8; O2SAT 98
[2016-06-10] MEDS: ATORVASTATIN 10 MG TAB PO SCH (19:02)
[2016-06-10] MEDS: GABAPENTIN 100 MG CAP PO SCH (19:02)
== END 2016-06-10 21:37 | DRG 638 ==
LOC: NEPE 11:59 → NEDA 14:54 → N06B 17:59
PROVIDERS: ADMIT Internal Medicine; ATTEND Internal Medicine
DX: E11.649 Type 2 diabetes mellitus with hypoglycemia without coma (principal); I25.810 Atherosclerosis of coronary artery bypass graft(s) without angina pectoris; I11.0 Hypertensive heart disease with heart failure; I50.9 Heart failure, unspecified; R00.1 Bradycardia, unspecified; R47.01 Aphasia; D63.8 Anemia in other chronic diseases classified elsewhere; Z95.1 Presence of aortocoronary bypass graft; E78.5 Hyperlipidemia, unspecified; I25.2 Old myocardial infarction; I45.10 Unspecified right bundle-branch block; J32.0 Chronic maxillary sinusitis; J44.9 Chronic obstructive pulmonary disease, unspecified; K21.9 Gastro-esophageal reflux disease without esophagitis; Z87.891 Personal history of nicotine dependence; W06.XXXA Fall from bed, initial encounter; Y92.009 Unspecified place in unspecified non-institutional (private) residence as the place of occurrence of the external cause
CPT/HCPCS: 70450; 71010; 72170; 80053; 81001; 82550; 82947; 82948; 84484; 85025; 85610; 85730; 93005; 93880; 96374; 96375; J7040; J7070; P9612

== ENCOUNTER 2016-08-30 00:27 | Emergency (ER) | payer MEDICARE, OTHER ==
[~2016-08-30] VITALS: Ht 162.6 cm; Wt 80.0 kg
[~2016-08-30 00:27] MED LIST changes: +ASPI1TAB69 PO; -ATEN50TA PO; -GLIM1TAB PO; +HYDR-3516 PO; -LIDO5DIS35 T-DERMAL; -LOSA50TA PO; -METF500T PO; -NORC5TAB PO
[2016-08-30] MEDS ORDERED: SODIUM CHLORIDE 0.9% FLUSH 10 ML FLUSH IVF PRN (00:45)
--- NOTE | 2016-08-30 00:46 | PD ---
HPI Chief Complaint: Abnormal Results Time Seen by Provider: 00:40 Travel History International Travel<30 days: No Contact w/Intl Traveler<30days: No History of Present Illness HPI Patient is a pleasant 85-year-old female who presents the emergency department from [facility] for low hemoglobin. Patient had routine blood work drawn yesterday and was notable for hemoglobin of 6.3. This resulted today and she was instructed to come to the emergency department. Patient is asymptomatic. Denies any lightheadedness dizziness. She is chronically fatigued, and this is not any worse. She takes iron supplementation and a baby aspirin daily but is not on any other anticoagulants. Denies hematemesis or hematochezia. PFSH Past Medical History Arthritis: Yes Asthma: No Blood Disorders: No Anxiety: Yes Depression: Yes Heart Rhythm Problems: No Cancer: No Cardiovascular Problems: Yes (QUAD BYPASS) High Cholesterol: Yes Chest Pain: Yes Congestive Heart Failure: Yes COPD: Yes Coronary Artery Disease: Yes Diabetes: Yes Diminished Hearing: No Endocrine: Yes GERD: Yes Glaucoma: No Genitourinary: No Headaches: Yes Hepatitis: No Hiatal Hernia: No Hypertension: Yes Immune Disorder: No Implanted Vascular Access Dvce: No Musculoskeletal: No Neurologic: Yes (neuropathy) Psychiatric: Yes Reproductive: No Immunizations Current: Yes Migraines: No Myocardial Infarction: Yes (2001) Radiation Therapy: No Seizures: No Sickle Cell Disease: No Sleep Apnea: No Ulcer: Yes (STOMACH) PNEUMOCCOCAL Vaccine (Year): 1 Menopausal: Yes : 10 Para: 9 Miscarriage: 1 Past Surgical History Abdominal Surgery: No AICD: No Arteriovenous Shunt: No Cardiac Surgery: Yes (CABG) Cholecystectomy: Yes Coronary Artery Bypass Graft: Yes (quadruple) Ear Surgery: No Endocrine Surgery: No Eye Surgery: Yes (CATARACTS) Genitourinary Surgery: No Gynecologic Surgery: No Insulin Pump: No Joint Replacement: No Oral Surgery: No Pacemaker: No Thoracic Surgery: No Tonsillectomy: Yes Other Surgery: Yes Social History Alcohol Use: No Tobacco Use: Yes (pt quit 15 years ago,) Substance Use: No Allergies-Medications (Allergen,Severity, Reaction): Coded Allergies: Contrast Media (Verified Allergy, Severe, CAN'T REMEMBER, 06/07/16) Pt states "I have no idea" to every allergy I ask her about Iodine (Verified Allergy, Severe, ON SKIN CAUSES BLISTERS, 06/07/16) Pt states "I have no idea" to every allergy I ask her about Shellfish (Verified Allergy, Severe, N/V, 06/07/16) Pt states "I have no idea" to every allergy I ask her about Codeine (Verified Allergy, Mild, NAUSEA, 06/07/16) Pt states "I have no idea" to every allergy I ask her about Reported Meds & Prescriptions Reported Meds & Active Scripts Active Hydrocodone-Acetaminophen 5-325 mg Tab 1 Tab PO Q4H PRN Pantoprazole (Pantoprazole Sodium) 40 Mg Tab 40 Mg PO DAILY Reported Aspirin 81 Mg Tabdr 81 Mg PO DAILY Gabapentin 100 Mg Cap 100 Mg PO HS Meclizine (Meclizine HCl) 25 Mg Tab 25 Mg PO DIRECTED PRN Atorvastatin (Atorvastatin Calcium) 10 Mg Tab 10 Mg PO HS Isosorbide Dinitrate 30 Mg Tab 1 Tab PO DAILY Review of Systems Except as stated in HPI: all other systems reviewed are Neg Physical Exam Narrative GENERAL: Pleasant elderly female in no acute distress SKIN: Focused skin assessment warm/dry. HEAD: Normocephalic. EYES: No scleral icterus. No injection or drainage. ENT: Mucous membranes pink and moist. NECK: Supple CARDIOVASCULAR: Regular rate and rhythm. No murmur appreciated. RESPIRATORY: No accessory muscle use. Clear to auscultation. Breath sounds equal bilaterally. GASTROINTESTINAL: Abdomen soft, non-tender, nondistended. Obese MUSCULOSKELETAL: No obvious deformities. 1+ BLE edema. NEUROLOGICAL: Awake and alert.. Normal speech. PSYCHIATRIC: Appropriate mood and affect; insight and judgment normal. Data Data Last Documented VS Vital Signs Date Time Temp Pulse Resp B/P Pulse Ox O2 Delivery O2 Flow Rate FiO2 08/30/16 00:52 75 15 98 Room Air 08/30/16 00:50 98.3 142/61 Orders Basic Metabolic Panel (Bmp) (08/30/16 00:43) Complete Blood Count With Diff (08/30/16 00:43) Prothrombin Time / Inr (Pt) (08/30/16 00:43) Act Partial Throm Time (Ptt) (08/30/16 00:43) Type And Screen (08/30/16 00:43) Ecg Monitoring (08/30/16 00:43) Iv Access Insert/Monitor (08/30/16 00:43) Oximetry (08/30/16 00:43) Sodium Chloride 0.9% Flush (Ns Flush) (08/30/16 00:45) Labs Laboratory Tests Test 08/30/16 01:00 White Blood Count 7.6 TH/MM3 Red Blood Count 3.24 MIL/MM3 Hemoglobin 7.0 GM/DL Hematocrit 23.3 % Mean Corpuscular Volume 71.9 FL Mean Corpuscular Hemoglobin 21.7 PG Mean Corpuscular Hemoglobin 30.2 % Concent Red Cell Distribution Width 18.4 % Platelet Count 172 TH/MM3 Mean Platelet Volume 10.0 FL Neutrophils (%) (Auto) 62.3 % Lymphocytes (%) (Auto) 24.0 % Monocytes (%) (Auto) 8.2 % Eosinophils (%) (Auto) 3.1 % Basophils (%) (Auto) 2.4 % Neutrophils # (Auto) 4.7 TH/MM3 Lymphocytes # (Auto) 1.8 TH/MM3 Monocytes # (Auto) 0.6 TH/MM3 Eosinophils # (Auto) 0.2 TH/MM3 Basophils # (Auto) 0.2 TH/MM3 CBC Comment DIFF FINAL Differential Comment Prothrombin Time 10.4 SEC Prothromb Time International 0.9 RATIO Ratio Activated Partial 20.1 SEC Thromboplast Time Sodium Level 138 MEQ/L Potassium Level 3.9 MEQ/L Chloride Level 100 MEQ/L Carbon Dioxide Level 29.0 MEQ/L Anion Gap 9 MEQ/L Blood Urea Nitrogen 21 MG/DL Creatinine 1.03 MG/DL Estimat Glomerular Filtration 51 ML/MIN Rate Random Glucose 95 MG/DL Calcium Level 8.3 MG/DL MDM Medical Decision Making Medical Screen Exam Complete: Yes Emergency Medical Condition: Yes Medical Record Reviewed: Yes Differential Diagnosis 85-year-old female here for hemoglobin of 6.3 drawn from lab work yesterday, patient asymptomatic. Differential includes laboratory error, anemia, anemia of chronic disease, GI bleed, iron deficiency anemia Narrative Course Patient placed on monitor, IV established and blood obtained. CBC, BMP, coags, type and screen notable for hemoglobin 7.0, low MCV, otherwise unremarkable. Patient was reassured and will be discharged back to her care facility. Diagnosis Primary Impression: Iron deficiency anemia Qualified Code: D50.9 - Iron deficiency anemia, unspecified iron deficiency anemia type Referrals: Primary Care Physician as needed Additional Instructions: Hemoglobin today 7.0. Med/Other Pt SpecificInfo: No Change to Meds Disposition: 01 DISCHARGE HOME Condition: Stable Domonique Raygoza MD Aug 30, 2016 00:46
[2016-08-30 00:50] VITALS: BP 142/61; PULSE 78; RESP 15; TEMP 98.3; O2SAT 99
[2016-08-30 00:52] VITALS: RESP 15; O2SAT 98
[2016-08-30 01:26] LABS: AUTOMATED NEUTROPHIL # 4.7 TH/MM3 (1.8-7.7); BASOPHIL # 0.2 TH/MM3 (0-0.2); BASOPHIL % 2.4 % (0.0-2.0); EOSINOPHIL # 0.2 TH/MM3 (0-0.4); EOSINOPHIL % 3.1 % (0.0-4.0); HEMATOCRIT 23.3 % (35.0-46.0); HEMO FLAGS DIFF FINAL; LYMPHOCYTE # 1.8 TH/MM3 (1.0-4.8); MEAN CELL VOLUME 71.9 FL (80.0-100.0); MEAN CORPUSCULAR HEMOGLOBIN 21.7 PG (27.0-34.0); MEAN CORPUSCULAR HGB CONC 30.2 % (32.0-36.0); MONO % 8.2 % (0.0-8.0); NEUT % 62.3 % (16.0-70.0); PLATELET COUNT 172 TH/MM3 (150-450); RED BLOOD COUNT 3.24 MIL/MM3 (4.00-5.30); RED CELL DISTRIBUTION WIDTH 18.4 % (11.6-17.2); WHITE BLOOD COUNT 7.6 TH/MM3 (4.0-11.0)
[2016-08-30 01:45] LABS: APTT (PATIENT) 20.1 SEC (24.3-30.1); INTERNATIONAL NORMALIZED RATIO 0.9 RATIO; PROTHROMBIN TIME - PATIENT 10.4 SEC (9.8-11.6)
[2016-08-30 01:46] LABS: POTASSIUM 3.9 MEQ/L (3.5-5.1)
== END 2016-08-30 06:17 | disposition home or self-care (01) ==
LOC: NEPE 00:27
DX: D50.9 Iron deficiency anemia, unspecified (principal); M13.80 Other specified arthritis, unspecified site; I50.9 Heart failure, unspecified; J44.9 Chronic obstructive pulmonary disease, unspecified; E11.9 Type 2 diabetes mellitus without complications; I10 Essential (primary) hypertension; I25.10 Atherosclerotic heart disease of native coronary artery without angina pectoris; K21.9 Gastro-esophageal reflux disease without esophagitis; E78.00 Pure hypercholesterolemia, unspecified
CPT/HCPCS: 80048; 85025; 85610; 85730; 86850; 86900; 86901; 99283

== ENCOUNTER → 2016-10-07 | Day surgery (SDC) | payer MEDICARE, OTHER ==
[~2016-10-07] MED LIST changes: +ALPR.5 PO; +ASPI81CH37 CHEW; +BUSP15TA PO; +DULO1CAP3 PO; +FERR325T8 PO; +GLIM1TAB PO; +LACTATED RINGER'S 1000 ML INJ 1,000 ML ONE; +LIPI10TA PO; +MELA5TAB15 PO; +METF500T PO; +NITR1SUB3 SL; +OMEP40CA2 PO; +PROPOFOL 200 MG/20 ML AMP IV ONE; +REME15TA PO
--- NOTE | 2016-10-07 11:15 | GIPROC ---
[facility] [address] [facility], [address] COLONOSCOPY PROCEDURE REPORT EXAM DATE: 10/07/2016 PATIENT NAME: Kelin Jain MR #: [id number] BIRTHDATE: 1930 ENDOSCOPIST: Rolanda Stauffer MD ORDER #: [id number] PLATE MAKER ZINC: Genny Nix RN STATUS: outpatient INDICATIONS: The patient is a 86 yr old female here for a colonoscopy due to change in bowel habits PROCEDURE PERFORMED: Colonoscopy, diagnostic MEDICATIONS: None and Per Anesthesia. PREP QUALITY: The [place] Bowel Prep Score was Right colon 2, Mid colon 3, and Left colon 3. Total = 8. ESTIMATED BLOOD LOSS: None CONSENT: The patient understands the risks and benefits of the procedure and understands that these risks include, but are not limited to: sedation, allergic reaction, infection, perforation and/or bleeding. Alternative means of evaluation and treatment include, among others: physical exam, x-rays, and/or surgical intervention. The patient elects to proceed with this endoscopic procedure. medical equipment was checked for proper function. Hand hygiene and appropriate measures for infection prevention was taken. After the risks, benefits and alternatives of the procedure were thoroughly explained, Informed consent was verified, confirmed and timeout was successfully executed by the treatment team. A digital exam revealed external hemorrhoids The [id number] ([id number]) endoscope was introduced through the anus and advanced to the cecum, which was identified by both the appendix and ileocecal valve. The instrument was then slowly withdrawn as the colon was fully examined. COLON FINDINGS: The colonic mucosa appeared normal. Retroflexed views revealed internal hemorrhoids and Retroflexed views revealed small internal hemorrhoids The scope was then completely withdrawn from the patient and the procedure terminated. ADVERSE EVENTS: There were no complications. IMPRESSIONS: 1. The colonic mucosa appeared normal 2. Retroflexed views revealed internal hemorrhoids 3. Retroflexed views revealed small internal hemorrhoids 4. Revealed external hemorrhoids RECOMMENDATIONS: 1. Continue surveillance 2. High fiber diet RECALL: Colonoscopy PRN colonoscopy Rolanda Stauffer MD eSigned: Rolanda Stauffer MD 10/07/2016 11:15 AM cc: Tara Grady and Laura Hood M.D.
== END | disposition home or self-care (01) ==
LOC: ESDC 08:39
PROVIDERS: ATTEND Internal Medicine Gastroenterology
DX: R19.4 Change in bowel habit (principal); K64.4 Residual hemorrhoidal skin tags; K64.8 Other hemorrhoids
CPT/HCPCS: 00810; 45378; J7120

== ENCOUNTER 2016-11-16 21:38 | Emergency (ER) | payer MEDICARE, OTHER ==
[~2016-11-16] VITALS: Ht 165.1 cm; Wt 82.0 kg
[~2016-11-16 21:38] MED LIST changes: -ALPR.5 PO; -ASPI81CH37 CHEW; -BUSP15TA PO; -DULO1CAP3 PO; -FERR325T8 PO; -GLIM1TAB PO; -LACTATED RINGER'S 1000 ML INJ 1,000 ML ONE; -LIPI10TA PO; -MELA5TAB15 PO; -METF500T PO; -NITR1SUB3 SL; -OMEP40CA2 PO; -PROPOFOL 200 MG/20 ML AMP IV ONE; -REME15TA PO
[2016-11-16 22:11] VITALS: BP 122/69; PULSE 108; RESP 18; TEMP 98.3; O2SAT 94
[2016-11-16] MEDS ORDERED: SODIUM CHLORIDE 0.9% FLUSH 5 ML FLUSH IV FLUSH PRN (22:45)
[2016-11-16 22:56] LABS: AUTOMATED NEUTROPHIL # 4.8 TH/MM3 (1.8-7.7); BASOPHIL % 0.7 % (0.0-2.0); EOSINOPHIL # 0.1 TH/MM3 (0-0.4); EOSINOPHIL % 1.8 % (0.0-4.0); HEMATOCRIT 37.5 % (35.0-46.0); LYMPH % 19.7 % (9.0-44.0); LYMPHOCYTE # 1.3 TH/MM3 (1.0-4.8); MEAN CELL VOLUME 86.4 FL (80.0-100.0); MEAN CORPUSCULAR HEMOGLOBIN 27.9 PG (27.0-34.0); MEAN CORPUSCULAR HGB CONC 32.3 % (32.0-36.0); NEUT % 71.8 % (16.0-70.0); PLATELET COUNT 204 TH/MM3 (150-450); RED BLOOD COUNT 4.34 MIL/MM3 (4.00-5.30); RED CELL DISTRIBUTION WIDTH 19.3 % (11.6-17.2); WHITE BLOOD COUNT 6.7 TH/MM3 (4.0-11.0)
[2016-11-16 22:58] LABS: HEMO FLAGS AUTO DIFF
[2016-11-16 23:30] LABS: ACANTHOCYTES OCC (NORMAL); ANION GAP 9 MEQ/L (5-15); AST (GOT) 27 U/L (15-37); BICARBONATE 27.9 MEQ/L (21.0-32.0); BLOOD UREA NITROGEN 9 MG/DL (7-18); CHLORIDE 100 MEQ/L (98-107); GLOMERULAR FILTRATION RATE 59 ML/MIN (>89); OVALOCYTES 1+ (NORMAL); PLATELET ESTIMATE SMEAR NORMAL (NORMAL); PLATELET MORPHOLOGY NORMAL (NORMAL); POTASSIUM 4.1 MEQ/L (3.5-5.1); SCAN/DIFF AUTO DIFF CONFIRMED; SODIUM (NA) 137 MEQ/L (136-145)
--- NOTE | 2016-11-16 23:31 | PD ---
HPI . Altered mental status Chief Complaint: Fall Time Seen by Provider: 22:25 Travel History International Travel<30 days: No Contact w/Intl Traveler<30days: No Traveled to known affect area: No History of Present Illness HPI This patient presents with a chief complaint to me of pain all over. She states that she suffered a fall a week ago. She states that she fell flat on her back. She states that she did strike her head but did not suffer loss of consciousness. She states that she has hurt all over since the fall. No modifying factors. She rates her pain 6/10. This patient resides in a residential. She was sent to us with the chief complaint per them of altered mental status. PFSH Past Medical History Arthritis: Yes Asthma: No Blood Disorders: No Anxiety: Yes Depression: Yes Heart Rhythm Problems: No Cancer: No Cardiovascular Problems: Yes (QUAD BYPASS) High Cholesterol: Yes Chest Pain: Yes Congestive Heart Failure: Yes COPD: Yes Coronary Artery Disease: Yes Diabetes: Yes Patient Takes Glucophage: Yes (11/16/2016 @ 2100) Diminished Hearing: No Endocrine: Yes Gastrointestinal Disorders: Yes GERD: Yes Glaucoma: No Genitourinary: No Headaches: Yes Hepatitis: No Hiatal Hernia: No Hypertension: Yes Immune Disorder: No Implanted Vascular Access Dvce: No Musculoskeletal: No Neurologic: Yes (neuropathy) Psychiatric: Yes Reproductive: No Immunizations Current: Yes Migraines: No Myocardial Infarction: Yes (2001) Radiation Therapy: No Seizures: No Sickle Cell Disease: No Sleep Apnea: No Ulcer: Yes (STOMACH) Tetanus Vaccination: Unknown Influenza Vaccination: Yes PNEUMOCCOCAL Vaccine (Year): 1 ?: Not Menopausal: Yes : 10 Para: 9 Miscarriage: 1 Past Surgical History Abdominal Surgery: No AICD: No Arteriovenous Shunt: No Cardiac Surgery: Yes (CABG) Cholecystectomy: Yes Coronary Artery Bypass Graft: Yes (quadruple) Ear Surgery: No Endocrine Surgery: No Eye Surgery: Yes (CATARACTS) Genitourinary Surgery: No Gynecologic Surgery: No Insulin Pump: No Joint Replacement: No Oral Surgery: No Pacemaker: No Thoracic Surgery: No Tonsillectomy: Yes Other Surgery: Yes Social History Alcohol Use: No Tobacco Use: Yes (pt quit 15 years ago,) Substance Use: No Allergies-Medications (Allergen,Severity, Reaction): Coded Allergies: diatrizoate meglumine (Unverified Allergy, Severe, CAN'T REMEMBER, 11/16/16 ) Pt states "I have no idea" to every allergy I ask her about gadobenic acid (Unverified Allergy, Severe, CAN'T REMEMBER, 11/16/16) Pt states "I have no idea" to every allergy I ask her about gadodiamide (Unverified Allergy, Severe, CAN'T REMEMBER, 11/16/16) Pt states "I have no idea" to every allergy I ask her about gadoteridol (Unverified Allergy, Severe, CAN'T REMEMBER, 11/16/16) Pt states "I have no idea" to every allergy I ask her about iodine (Unverified Allergy, Severe, ON SKIN CAUSES BLISTERS, 11/16/16) Pt states "I have no idea" to every allergy I ask her about iodixanol (Unverified Allergy, Severe, CAN'T REMEMBER, 11/16/16) Pt states "I have no idea" to every allergy I ask her about iohexol (Unverified Allergy, Severe, CAN'T REMEMBER, 11/16/16) Pt states "I have no idea" to every allergy I ask her about potassium iodide (Unverified Allergy, Severe, ON SKIN CAUSES BLISTERS, 11/16/16) Pt states "I have no idea" to every allergy I ask her about povidone-iodine (Unverified Allergy, Severe, ON SKIN CAUSES BLISTERS, 11/16) Pt states "I have no idea" to every allergy I ask her about shellfish derived (Unverified Allergy, Severe, N/V, 11/16/16) Pt states "I have no idea" to every allergy I ask her about sodium iodide (Unverified Allergy, Severe, ON SKIN CAUSES BLISTERS, ) Pt states "I have no idea" to every allergy I ask her about sodium iodide (Unverified Allergy, Severe, ON SKIN CAUSES BLISTERS, ) Pt states "I have no idea" to every allergy I ask her about codeine (Unverified Allergy, Mild, NAUSEA, 11/16/16) Pt states "I have no idea" to every allergy I ask her about Reported Meds & Prescriptions Reported Meds & Active Scripts Active Hydrocodone-Acetaminophen 5-325 mg Tab 1 Tab PO Q4H PRN Pantoprazole (Pantoprazole Sodium) 40 Mg Tab 40 Mg PO DAILY Reported Aspirin 81 Mg Tabdr 81 Mg PO DAILY Gabapentin 100 Mg Cap 100 Mg PO HS Meclizine (Meclizine HCl) 25 Mg Tab 25 Mg PO DIRECTED PRN Atorvastatin (Atorvastatin Calcium) 10 Mg Tab 10 Mg PO HS Isosorbide Dinitrate 30 Mg Tab 1 Tab PO DAILY Review of Systems Except as stated in HPI: all other systems reviewed are Neg General / Constitutional: No: Fever, Chills Eyes: No: Blurred Vision Cardiovascular: No: Chest Pain or Discomfort Respiratory: No: Shortness of Breath Gastrointestinal: No: Nausea, Vomiting, Diarrhea Genitourinary: No: Urgency, Frequency, Dysuria Musculoskeletal: Positive: Myalgias, Arthralgias, Pain (pain all over) Physical Exam Narrative GENERAL: Patient is awake and alert. She is aware that she is currently residing in a residential. SKIN: warm/dry. HEAD: Normocephalic. Atraumatic. EYES: Pupils equal and round. No scleral icterus. No injection or drainage. ENT: No nasal bleeding or discharge. Mucous membranes pink and moist. NECK: Trachea midline. Full range of motion without pain.. CARDIOVASCULAR: Regular rate and rhythm. Heart sounds are normal. RESPIRATORY: No accessory muscle use. Clear to auscultation. Breath sounds equal bilaterally. GASTROINTESTINAL: Abdomen soft. Nontender. Bowel sounds present. Nondistended. MUSCULOSKELETAL: No obvious deformities. I do not find any physical signs of trauma to her neck, back, extremities. NEUROLOGICAL: Awake and alert. No obvious cranial nerve deficits. Motor grossly within normal limits. Normal speech. PSYCHIATRIC: Appropriate mood and affect; insight and judgment normal. Data Data Last Documented VS Vital Signs Date Time Temp Pulse Resp B/P (MAP) Pulse Ox O2 Delivery O2 Flow Rate FiO2 11/16/16 22:11 98.3 108 18 122/69 (86) 94 Orders Orders Complete Blood Count With Diff (11/16/16 22:33) Comprehensive Metabolic Panel (11/16/16 22:33) Creatine Kinase (Cpk) (11/16/16 22:33) Troponin I (11/16/16 22:33) Urinalysis - C+S If Indicated (11/16/16 22:33) Lactic Acid Sepsis Protocol (11/16/16 22:33) Ct Brain W/O Iv Contrast(Rout) (11/16/16 22:33) Ecg Monitoring (11/16/16 22:33) Iv Access Insert/Monitor (11/16/16 22:33) Cath For Specimen (11/16/16 22:33) Oximetry (11/16/16 22:33) Sodium Chloride 0.9% Flush (Ns Flush) (11/16/16 22:45) Labs Laboratory Tests Test 11/16/16 22:40 11/16/16 23:35 White Blood Count 6.7 TH/MM3 Red Blood Count 4.34 MIL/MM3 Hemoglobin 12.1 GM/DL Hematocrit 37.5 % Mean Corpuscular Volume 86.4 FL Mean Corpuscular Hemoglobin 27.9 PG Mean Corpuscular Hemoglobin Concent 32.3 % Red Cell Distribution Width 19.3 % Platelet Count 204 TH/MM3 Mean Platelet Volume 9.5 FL Neutrophils (%) (Auto) 71.8 % Lymphocytes (%) (Auto) 19.7 % Monocytes (%) (Auto) 6.0 % Eosinophils (%) (Auto) 1.8 % Basophils (%) (Auto) 0.7 % Neutrophils # (Auto) 4.8 TH/MM3 Lymphocytes # (Auto) 1.3 TH/MM3 Monocytes # (Auto) 0.4 TH/MM3 Eosinophils # (Auto) 0.1 TH/MM3 Basophils # (Auto) 0.0 TH/MM3 CBC Comment AUTO DIFF Differential Comment AUTO DIFF CONFIRMED Platelet Estimate NORMAL Platelet Morphology Comment NORMAL Ovalocytes 1+ Acanthocytes OCC Blood Urea Nitrogen 9 MG/DL Creatinine 0.91 MG/DL Random Glucose 138 MG/DL Total Protein 7.1 GM/DL Albumin 3.7 GM/DL Calcium Level 9.0 MG/DL Alkaline Phosphatase 86 U/L Aspartate Amino Transf (AST/SGOT) 27 U/L Alanine Aminotransferase (ALT/SGPT) 23 U/L Total Bilirubin 0.2 MG/DL Sodium Level 137 MEQ/L Potassium Level 4.1 MEQ/L Chloride Level 100 MEQ/L Carbon Dioxide Level 27.9 MEQ/L Anion Gap 9 MEQ/L Estimat Glomerular Filtration Rate 59 ML/MIN Lactic Acid Level 2.2 mmol/L Total Creatine Kinase 51 U/L Troponin I LESS THAN 0.02 NG/ML Urine Color YELLOW Urine Turbidity CLEAR Urine pH 5.5 Urine Specific Dalton 1.019 Urine Protein NEG mg/dL Urine Glucose (UA) NEG mg/dL Urine Ketones NEG mg/dL Urine Occult Blood NEG Urine Nitrite NEG Urine Bilirubin NEG Urine Urobilinogen LESS THAN 2.0 MG/DL Urine Leukocyte Esterase TRACE Urine RBC 2 /hpf Urine WBC 2 /hpf Urine Hyaline Casts 4 /lpf Urine Mucus FEW /lpf Microscopic Urinalysis Comment CATH-CULT NOT IND MDM Medical Decision Making Medical Screen Exam Complete: Yes Emergency Medical Condition: Yes Medical Record Reviewed: Yes (medical history is significant for hypertension, diabetes, coronary artery disease, hyperlipidemia, GERD, vertigo and restlessness and agitation) Differential Diagnosis Differential diagnosis of altered mental status includes but is not limited to infection, electrolyte abnormality, neurological event, intoxication Narrative Course This patient presents for the evaluation of altered mental status. She seems lucid. CT head>>No acute intracranial abnormality. CBC & BMP Diagram 11/16/16 22:40 Total Protein 7.1, Albumin 3.7, Calcium Level 9.0, Alkaline Phosphatase 86, Aspartate Amino Transf (AST/SGOT) 27, Alanine Aminotransferase (ALT/SGPT) 23, Total Bilirubin 0.2 UA is negative for infection. The history, exam, diagnostic testing, and current condition do not suggest any significant pathology to warrant further testing, continued ED treatment, admission, or surgical evaluation at this point. The patient's condition is stable and appropriate for discharge. Diagnosis Primary Impression: Altered mental status, unspecified Qualified Codes: R40.4 - Transient alteration of awareness Disposition: 01 DISCHARGE HOME Condition: Stable Maria C Mares MD Nov 16, 2016 23:31
[2016-11-16 23:35] LABS: ALKALINE PHOSPHATASE 86 U/L (45-117); ALT (GPT) 23 U/L (10-53); TOTAL BILIRUBIN ADULT 0.2 MG/DL (0.2-1.0)
--- NOTE | 2016-11-16 23:35 | RADRPT ---
EXAM DATE/TIME: 11/16/2016 23:13 [facility] COMPARISON: CT BRAIN W/O CONTRAST, June 07, 2016, 12:57. INDICATIONS : Altered mental status. RADIATION DOSE: 38.51 CTDIvol (mGy) MEDICAL HISTORY : Cerebrovascular disease. Cardiovascular disease Hypertension.Diabetes COPD SURGICAL HISTORY : CABG Cholecystectomy. ENCOUNTER: Initial ACUITY: 1 day PAIN SCALE: 0/10 LOCATION: cranial TECHNIQUE: Multiple contiguous axial images were obtained of the head. Using automated exposure control and adj ustment of the mA and/or kV according to patient size, radiation dose was kept as low as reasonably a chievable to obtain optimal diagnostic quality images. DICOM format image data is available electro nically for review and comparison. FINDINGS: CEREBRUM: The ventricles are normal for age. No evidence of midline shift, mass lesion, hemorrhage or acute in farction. No extra-axial fluid collections are seen. Atrophy and mild chronic white matter disease a gain noted. POSTERIOR FOSSA: The cerebellum and brainstem are intact. The 4th ventricle is midline. The cerebellopontine angle i s unremarkable. EXTRACRANIAL: The visualized portion of the orbits is intact. SKULL: The calvaria is intact. No evidence of skull fracture. CONCLUSION: No acute intracranial abnormality. Van Jernigan MD on November 16, 2016 at 23:33 Board Certified Radiologist. This report was verified electronically.
[2016-11-16 23:39] LABS: CREATINE KINASE 51 U/L (26-192)
[2016-11-16 23:49] LABS: BLOOD, URINE NEG (NEG); GLUCOSE,URINE NEG (NEG); HYALINE CAST, URINE 4 /lpf (RARE); KETONE, URINE NEG (NEG); MUCUS URINE FEW /lpf (OCC); NITRITE,URINE NEG (NEG); PH, URINE 5.5 (5.0-8.5); URINE COLOR YELLOW (YELLW/STRAW)
[2016-11-16 23:50] LABS: COMMENT (UR) CATH-CULT NOT IND; CULTURE IF INDICATED CATH CULTURE NOT IND
[2016-11-17 00:35] VITALS: BP 133/60; PULSE 93; O2SAT 98
[2016-11-17 00:52] LABS: LACTIC ACID GHOST NOT REPORTABLE
[2016-11-17] MEDS ORDERED: LIPI10TA PO (01:01)
[2016-11-17] MEDS ORDERED: REME15TA PO (01:01)
[2016-11-17] MEDS ORDERED: BUSP15TA PO (01:01)
[2016-11-17] MEDS ORDERED: ALPR.5 PO (01:01)
[2016-11-17] MEDS ORDERED: METF500T PO (01:01)
[2016-11-17] MEDS ORDERED: MELA5TAB15 PO (01:01)
[2016-11-17] MEDS ORDERED: ASPI81CH37 CHEW (01:01)
[2016-11-17] MEDS ORDERED: FERR325T8 PO (01:01)
[2016-11-17] MEDS ORDERED: OMEP40CA2 PO (01:01)
[2016-11-17] MEDS ORDERED: NITR1SUB3 SL (01:01)
[2016-11-17] MEDS ORDERED: DULO1CAP3 PO (01:01)
[2016-11-17] MEDS ORDERED: GLIM1TAB PO (01:01)
[2016-11-17] MEDS ORDERED: LORazepam 2 MG/ML VIAL IM ONE (02:30)
[2016-11-17] MEDS ORDERED: LORazepam 2 MG/ML VIAL IV PUSH ONE (02:30)
[2016-11-17 03:31] VITALS: BP 118/86; PULSE 81; RESP 18; O2SAT 93
== END 2016-11-17 05:50 | disposition home or self-care (01) ==
LOC: NEDAMB 21:38 → NEPE 11-17 05:50
DX: R41.82 Altered mental status, unspecified (principal); I25.10 Atherosclerotic heart disease of native coronary artery without angina pectoris; E78.5 Hyperlipidemia, unspecified; K21.9 Gastro-esophageal reflux disease without esophagitis; I11.0 Hypertensive heart disease with heart failure; I50.9 Heart failure, unspecified; J44.9 Chronic obstructive pulmonary disease, unspecified; E11.40 Type 2 diabetes mellitus with diabetic neuropathy, unspecified; E78.00 Pure hypercholesterolemia, unspecified
CPT/HCPCS: 70450; 80053; 81001; 82550; 83605; 84484; 85025; 96374; 99285; J2060

== ENCOUNTER 2016-11-18 05:45 | Emergency (ER) | payer MEDICARE, OTHER ==
[~2016-11-18] VITALS: Ht 162.6 cm; Wt 80.0 kg
[~2016-11-18 05:45] MED LIST changes: +ALPR.5 PO; +ASPI81CH37 CHEW; +BUSP15TA PO; +DULO1CAP3 PO; +FERR325T8 PO; +GLIM1TAB PO; +LIPI10TA PO; +MELA5TAB15 PO; +METF500T PO; +NITR1SUB3 SL; +OMEP40CA2 PO; +REME15TA PO
[2016-11-18 06:00] VITALS: BP 145/107; PULSE 80; RESP 18; TEMP 98.2; O2SAT 98
--- NOTE | 2016-11-18 06:20 | PD ---
HPI Chief Complaint: Fall Time Seen by Provider: 05:57 Travel History International Travel<30 days: No Contact w/Intl Traveler<30days: No Traveled to known affect area: No History of Present Illness HPI The patient is an 86 year old female who presents to the [facility] emergency department with a history of reportedly falling this morning at her [facility]. The alarm for her bed went off at the [facility] and the patient was found on the floor. The patient was awake and alert when the [facility] staff arrived in the room. They are unsure whether she did have any loss of consciousness. The patient appeared to be more drowsy. The patient was noted to have unequal pupils with the left pupil greater than the right, therefore the patient was brought to the emergency department for evaluation and treatment. The patient does have a history of frequent falls. The patient on arrival is awake and alert. The patient is following commands. The patient is oriented to person, place, however not time. The patient denies having any pain. On review of systems otherwise, the patient denies having any recent known fevers, cough, congestion, neck pain, chest pain, shortness of breath, abdominal pain, vomiting, diarrhea, urinary symptoms, numbness or tingling to her extremities, or weakness to her extremities. FOR[facility] Past Medical History Narrative Medical The patient's past medical history is significant for coronary artery disease with quadruple bypass, history of arthritis, history of anxiety and depression, history of hyperlipidemia, congestive heart failure, COPD, diabetes mellitus, acid reflux, headaches, hypertension, diabetic neuropathy, peptic ulcer disease , history of myocardial infarction in 2001. Arthritis: Yes Asthma: No Blood Disorders: No Anxiety: Yes Depression: Yes Heart Rhythm Problems: No Cancer: No Cardiovascular Problems: Yes (QUAD BYPASS) High Cholesterol: Yes Chest Pain: Yes Congestive Heart Failure: Yes COPD: Yes Coronary Artery Disease: Yes Diabetes: Yes Patient Takes Glucophage: No Diminished Hearing: No Endocrine: Yes Gastrointestinal Disorders: Yes GERD: Yes Glaucoma: No Genitourinary: No Headaches: Yes Hepatitis: No Hiatal Hernia: No Hypertension: Yes Immune Disorder: No Implanted Vascular Access Dvce: No Musculoskeletal: No Neurologic: Yes (neuropathy) Psychiatric: Yes Reproductive: No Immunizations Current: Yes Migraines: No Myocardial Infarction: Yes (2001) Radiation Therapy: No Seizures: No Sickle Cell Disease: No Sleep Apnea: No Ulcer: Yes (STOMACH) Tetanus Vaccination: < 5 Years Influenza Vaccination: Yes PNEUMOCCOCAL Vaccine (Year): 1 Menopausal: Yes : 10 Para: 9 Miscarriage: 1 Past Surgical History Narrative Surgical The patient's past surgical history is significant for coronary artery bypass grafting of 4 vessels, cataract surgery with a history of unequal pupil on the left, history of tonsillectomy, cholecystectomy Abdominal Surgery: No AICD: No Arteriovenous Shunt: No Cardiac Surgery: Yes (CABG) Cholecystectomy: Yes Coronary Artery Bypass Graft: Yes (quadruple) Ear Surgery: No Endocrine Surgery: No Eye Surgery: Yes (CATARACTS) Genitourinary Surgery: No Gynecologic Surgery: No Insulin Pump: No Joint Replacement: No Oral Surgery: No Pacemaker: No Thoracic Surgery: No Tonsillectomy: Yes Other Surgery: Yes Social History Alcohol Use: No Tobacco Use: No (pt quit 15 years ago,) Substance Use: No Allergies-Medications (Allergen,Severity, Reaction): Coded Allergies: diatrizoate meglumine (Unverified Allergy, Severe, CAN'T REMEMBER, 11/16/16 ) Pt states "I have no idea" to every allergy I ask her about gadobenic acid (Unverified Allergy, Severe, CAN'T REMEMBER, 11/16/16) Pt states "I have no idea" to every allergy I ask her about gadodiamide (Unverified Allergy, Severe, CAN'T REMEMBER, 11/16/16) Pt states "I have no idea" to every allergy I ask her about gadoteridol (Unverified Allergy, Severe, CAN'T REMEMBER, 11/16/16) Pt states "I have no idea" to every allergy I ask her about iodine (Unverified Allergy, Severe, ON SKIN CAUSES BLISTERS, 11/16/16) Pt states "I have no idea" to every allergy I ask her about iodixanol (Unverified Allergy, Severe, CAN'T REMEMBER, 11/16/16) Pt states "I have no idea" to every allergy I ask her about iohexol (Unverified Allergy, Severe, CAN'T REMEMBER, 11/16/16) Pt states "I have no idea" to every allergy I ask her about potassium iodide (Unverified Allergy, Severe, ON SKIN CAUSES BLISTERS, 11/16/16) Pt states "I have no idea" to every allergy I ask her about povidone-iodine (Unverified Allergy, Severe, ON SKIN CAUSES BLISTERS, 11/16) Pt states "I have no idea" to every allergy I ask her about shellfish derived (Unverified Allergy, Severe, N/V, 11/16/16) Pt states "I have no idea" to every allergy I ask her about sodium iodide (Unverified Allergy, Severe, ON SKIN CAUSES BLISTERS, ) Pt states "I have no idea" to every allergy I ask her about sodium iodide (Unverified Allergy, Severe, ON SKIN CAUSES BLISTERS, ) Pt states "I have no idea" to every allergy I ask her about codeine (Unverified Allergy, Mild, NAUSEA, 11/16/16) Pt states "I have no idea" to every allergy I ask her about Reported Meds & Prescriptions Reported Meds & Active Scripts Active Hydrocodone-Acetaminophen 5-325 mg Tab 1 Tab PO Q4H PRN Pantoprazole (Pantoprazole Sodium) 40 Mg Tab 40 Mg PO DAILY Reported Xanax (Alprazolam) 0.5 Mg Tab 0.5 Mg PO Q8H PRN Nitroglycerin SL (Nitroglycerin) 0.4 Mg Subl 0.4 Mg SL DIRECTED PRN ONE TABLET UNDER THE TONGUE NEEDED FOR CHEST PAIN, MAY REPEAT EVERY FIVE MINUTES FOR A TOTAL OF 3 DOSES OR CALL 911 IF NO RELIEF Buspirone (Buspirone HCl) 15 Mg Tab 15 Mg PO TID Ferrous Sulfate 325 Mg (65 Mg Iron) Tablet 325 Mg PO TIDPC Metformin (Metformin HCl) 500 Mg Tab 500 Mg PO BIDPC Remeron (Mirtazapine) 15 Mg Tab 15 Mg PO HS Melatonin 5 Mg Tab 6 Mg PO HS Aspirin Low Dose (Aspirin) 81 Mg Chew 81 Mg CHEW DAILY Duloxetine DR (Duloxetine HCl) 60 Mg Capdr 60 Mg PO DAILY Lipitor (Atorvastatin Calcium) 10 Mg Tab 10 Mg PO HS Glimepiride 1 Mg Tab 1 Mg PO DAILY Take with breakfast or first main meal Omeprazole 40 Mg Cap 40 Mg PO DAILY Gabapentin 100 Mg Cap 100 Mg PO HS Meclizine (Meclizine HCl) 25 Mg Tab 25 Mg PO DIRECTED PRN Isosorbide Dinitrate 30 Mg Tab 1 Tab PO DAILY Review of Systems Except as stated in HPI: all other systems reviewed are Neg General / Constitutional: No: Fever Eyes: No: Visual changes HENT: No: Headaches Cardiovascular: No: Chest Pain or Discomfort Respiratory: No: Shortness of Breath Gastrointestinal: No: Abdominal Pain Genitourinary: No: Dysuria Musculoskeletal: No: Pain Skin: No Rash Neurologic: No: Weakness Psychiatric: No: Depression Endocrine: No: Polydipsia Hematologic/Lymphatic: No: Easy Bruising Physical Exam Narrative General: The patient is a well-developed well-nourished female in no acute distress. Head and Neck exam: Head is normocephalic atraumatic. Eyes: The patient's left pupil is irregular in shape and larger compared to the right. The patient's left pupil is nonreactive, right pupil is reactive to light. According to the records the patient has had this previously. Extraocular motion testing is intact. Nose: Midline septum with pink mucous membranes Mouth: Dentition unremarkable. Moist mucus membranes. Posterior oropharynx is not erythematous. No tonsillar hypertrophy. Uvula midline. Airway patent. Neck: Trachea midline. The patient has a cervical collar in place. Cardiovascular: Regular rate and rhythm without murmurs, gallops, or rubs. Lungs: Clear to auscultation bilaterally. No wheezes, rhonchi, or rales. Abdomen: Soft, without tenderness to palpation in all 4 quadrants of the abdomen. No guarding, rebound, or rigidity. Normal bowel sounds are audible. No tenderness on palpation. Extremities: No clubbing or cyanosis. Trace pedal edema bilateral lower extremities. 2+ pulses in all 4 extremities. No calf tenderness on palpation. No pain on palpation of her extremities. No deformity or crepitus. She has full range of motion. Back: No costovertebral angle tenderness to palpation. Neurologic Exam: Grossly nonfocal. Skin Exam: No rash noted. Intact skin that is warm and dry. Data Data Last Documented VS Vital Signs Date Time Temp Pulse Resp B/P (MAP) Pulse Ox O2 Delivery O2 Flow Rate FiO2 11/18/16 06:05 Room Air 11/18/16 06:00 98.2 80 18 145/107 (120) 98 Orders Orders Chest, Single Ap (11/18/16 05:57) Ct Brain W/O Iv Contrast(Rout) (11/18/16 05:57) Pelvis, Ap Only (Routine) (11/18/16 05:57) Ct Cerv Spine W/O Contrast (11/18/16 ) MDM Medical Decision Making Medical Screen Exam Complete: Yes Emergency Medical Condition: Yes Medical Record Reviewed: Yes Differential Diagnosis Intracranial hemorrhage, versus cervical spine trauma, versus intrathoracic trauma, versus pelvis injury, versus hip fracture Narrative Course During the course of the patients emergency department visit, the patients history, examination, and differential diagnosis were reviewed with the patient. The patient had a CT scan of the head and neck ordered, chest x-ray, pelvis x-ray ordered. Radiology studies were reviewed and remarkable for a pelvis x-ray, chest x-ray that shows no acute abnormality. CT scan of the head and neck are pending reading at the conclusion of my shift. The patient's case will be checked out to the oncoming emergency department physician to disposition the patient based on the conclusion of the patient's workup. Diagnosis Primary Impression: Fall Qualified Codes: W19.XXXA - Unspecified fall, initial encounter Ninfa Russo MD Nov 18, 2016 06:20
--- NOTE | 2016-11-18 06:29 | RADRPT ---
EXAM DATE/TIME: 11/18/2016 06:02 [facility] COMPARISON: No previous studies available for comparison. INDICATIONS : Pelvic pain post fall. MEDICAL HISTORY : Chronic obstructive pulmonary disease. Cerebrovascular disease. Cardiovascular disease Hyperten carrillo.Diabetes SURGICAL HISTORY : CABG. Cholecystectomy. ENCOUNTER: Initial ACUITY: 1 day PAIN SCORE: Non-responsive. LOCATION: Bilateral pelvis FINDINGS: Bony pelvis is intact and has normal morphology. Osteoarthritis noted, moderate to severe the sacroil iac joints and mild of the hips and pubic symphysis. CONCLUSION: Intact pelvis. Van Jernigan MD on November 18, 2016 at 6:27 Board Certified Radiologist. This report was verified electronically.
--- NOTE | 2016-11-18 06:31 | RADRPT ---
EXAM DATE/TIME: 11/18/2016 06:11 [facility] COMPARISON: No previous studies available for comparison. INDICATIONS : Shortness of breath. MEDICAL HISTORY : Chronic obstructive pulmonary disease. Cerebrovascular disease. Cardiovascular disease Hyperten carrillo.Diabetes SURGICAL HISTORY : CABG. Cholecystectomy. ENCOUNTER: Initial ACUITY: 1 day PAIN SCORE: Non-responsive. LOCATION: Bilateral chest FINDINGS: Trace left base atelectasis. Lungs are otherwise clear. No large effusion seen. No pneumothorax. Heart size stable, upper limits of normal. Patient has had previous median sternotomy and coronary ar atiya bypass graft operation. No acute abnormality seen of the visualized osseous structures. CONCLUSION: Trace left base atelectasis. Otherwise negative one view chest x-ray. Van Jernigan MD on November 18, 2016 at 6:28 Board Certified Radiologist. This report was verified electronically.
--- NOTE | 2016-11-18 07:13 | RADRPT ---
EXAM DATE/TIME: 11/18/2016 06:47 [facility] COMPARISON: CT BRAIN W/O CONTRAST, November 16, 2016, 23:13. INDICATIONS : Trauma, fall. RADIATION DOSE: 43.00 CTDIvol (mGy) MEDICAL HISTORY : Chronic obstructive pulmonary disease. Cardiovascular disease Gastroesophageal reflux disease.Diabete s. CAD. Congestive heart failure. SURGICAL HISTORY : CABG Hysterectomy.Cholecystectomy. ENCOUNTER: Initial ACUITY: 1 day PAIN SCALE: 2/10 LOCATION: cranial TECHNIQUE: Multiple contiguous axial images were obtained of the head. Using automated exposure control and adj ustment of the mA and/or kV according to patient size, radiation dose was kept as low as reasonably a chievable to obtain optimal diagnostic quality images. DICOM format image data is available electro nically for review and comparison. FINDINGS: CEREBRUM: The ventricles are normal for age. No evidence of midline shift, mass lesion, hemorrhage or acute in farction. No extra-axial fluid collections are seen. POSTERIOR FOSSA: The cerebellum and brainstem are intact. The 4th ventricle is midline. The cerebellopontine angle i s unremarkable. EXTRACRANIAL: The visualized portion of the orbits is intact. SKULL: The calvaria is intact. No evidence of skull fracture. CONCLUSION: Normal examination for a patient of this age. No significant change has occurred. Leobardo Merlos MD on November 18, 2016 at 7:09 Board Certified Radiologist. This report was verified electronically.
--- NOTE | 2016-11-18 07:16 | RADRPT ---
EXAM DATE/TIME: 11/18/2016 06:47 [facility] COMPARISON: CT CERVICAL SPINE W/O CONTRAST, February 15, 2015, 17:21. INDICATIONS : Trauma, fall. RADIATION DOSE: 21.60 CTDIvol (mGy) MEDICAL HISTORY : Chronic obstructive pulmonary disease. Gastroesophageal reflux disease. Cardiovascular diseaseDiabete s. CAD. Congestive heart failure. SURGICAL HISTORY : CABG Hysterectomy.Cholecystectomy. ENCOUNTER: Initial ACUITY: 1 day PAIN SCALE: 4/10 LOCATION: neck TECHNIQUE: Volumetric scanning of the cervical spine was performed. Multiplanar reconstructions in the sagittal, coronal and oblique axial planes were performed. Using automated exposure control and adjustment o f the mA and/or kV according to patient size, radiation dose was kept as low as reasonably achievable to obtain optimal diagnostic quality images. DICOM format image data is available electronically f or review and comparison. FINDINGS: No acute fracture or spondylolisthesis. Moderate degenerative disc disease and facet arthropathy. No prevertebral soft tissue swelling and no significant bony canal stenosis. Bilateral thyroid nodules s table compared with prior CTs dating back to February 2015. CONCLUSION: 1. No acute findings. [id number] degenerative disc disease and facet arthropathy. Leobardo Mrelos MD on November 18, 2016 at 7:11 Board Certified Radiologist. This report was verified electronically.
--- NOTE | 2016-11-18 07:35 | PD ---
Physical Exam Narrative GENERAL: Well-nourished, well-developed patient. SKIN: Warm and dry. HEAD: Normocephalic EYES: No injection or drainage. ENT: No nasal drainage noted. NECK: Supple, trachea midline. C-collar removed without midline pain with range of motion and palpation CARDIOVASCULAR: Regular rate and rhythm RESPIRATORY: No increased effort. No accessory muscle use. GASTROINTESTINAL: Abdomen soft, non-tender, nondistended. BACK: Nontender without obvious deformity in midline across entire spine. NEUROLOGICAL: Patient knows name and location, moves all extremities, clear speech Data Data Last Documented VS Vital Signs Date Time Temp Pulse Resp B/P (MAP) Pulse Ox O2 Delivery O2 Flow Rate FiO2 11/18/16 06:05 Room Air 11/18/16 06:00 98.2 80 18 145/107 (120) 98 Orders Orders Chest, Single Ap (11/18/16 05:57) Ct Brain W/O Iv Contrast(Rout) (11/18/16 05:57) Pelvis, Ap Only (Routine) (11/18/16 05:57) Ct Cerv Spine W/O Contrast (11/18/16 ) [facility] Supervised Visit with GALEN: No Interpretation(s) Last 24 hours Impressions Pelvis X-Ray 11/18/16556 Signed Impressions: Service Date/Time: Friday, November 18, 2016 06:02 - CONCLUSION: Intact pelvis. Van Jernigan MD Head CT 11/18/16556 Signed Impressions: Service Date/Time: Friday, November 18, 2016 06:47 - CONCLUSION: Normal examination for a patient of this age. No significant change has occurred. Leobardo Merlos MD Chest X-Ray 11/18/16556 Signed Impressions: Service Date/Time: Friday, November 18, 2016 06:11 - CONCLUSION: Trace left base atelectasis. Otherwise negative one view chest x-ray. Van Jernigan MD CT cervical spine showed no acute fracture Narrative Course Signed over to me to discharge of imaging is negative. Imaging without emergent process. Patient denies new complaints. Questions answered Diagnosis Primary Impression: Fall Qualified Codes: W19.XXXA - Unspecified fall, initial encounter Patient Instructions: General Instructions Additional Instruction: Follow with primary in the next 1-2 days for recheck, return as needed, Tylenol as needed for pain Med/Other Pt SpecificInfo: No Change to Meds Disposition: 03 DISCHARGE TO SNF Condition: Stable Leena Parirsh MD Nov 18, 2016 07:35
[2016-11-18 07:43] VITALS: BP 149/77; PULSE 89; RESP 18; O2SAT 97
[2016-11-18 10:49] VITALS: BP 147/76
== END 2016-11-18 10:56 ==
LOC: NEPE 05:45
DX: Z04.3 Encounter for examination and observation following other accident (principal); W06.XXXA Fall from bed, initial encounter; Y92.122 Bedroom in nursing home as the place of occurrence of the external cause; I25.10 Atherosclerotic heart disease of native coronary artery without angina pectoris; I10 Essential (primary) hypertension; I50.9 Heart failure, unspecified; E11.40 Type 2 diabetes mellitus with diabetic neuropathy, unspecified; J44.9 Chronic obstructive pulmonary disease, unspecified; K21.9 Gastro-esophageal reflux disease without esophagitis
CPT/HCPCS: 70450; 71010; 72125; 72170

== ENCOUNTER 2016-11-20 18:27 | Emergency (ER) | payer MEDICARE, OTHER ==
[~2016-11-20] VITALS: Ht 162.6 cm; Wt 70.0 kg
[~2016-11-20 18:27] MED LIST changes: -ASPI1TAB69 PO; -ATOR10TA15 PO
[2016-11-20 18:48] VITALS: BP 113/53; PULSE 98; RESP 18; TEMP 97.9; O2SAT 96
--- NOTE | 2016-11-20 18:58 | PD ---
HPI Chief Complaint: Head Injury Time Seen by Provider: 18:34 Travel History International Travel<30 days: No Contact w/Intl Traveler<30days: No Traveled to known affect area: No History of Present Illness HPI This is an 86-year-old female history of hypertension, diabetes mellitus, coronary artery disease, who presents from the alf after she had a mechanical fall. The patient was in the bathroom when she really fell forward while sitting on the commode. The patient has a laceration to the left side of her head. Patient also complains of head neck and upper back pain. There is no reported loss of consciousness. There are no other complaints time my examination. PFSH Past Medical History Arthritis: Yes Asthma: No Blood Disorders: No Anxiety: Yes Depression: Yes Heart Rhythm Problems: No Cancer: No Cardiovascular Problems: Yes (QUAD BYPASS) High Cholesterol: Yes Chest Pain: Yes Congestive Heart Failure: Yes COPD: Yes Coronary Artery Disease: Yes Diabetes: Yes Patient Takes Glucophage: Yes Diminished Hearing: No Endocrine: Yes Gastrointestinal Disorders: Yes GERD: Yes Glaucoma: No Genitourinary: No Headaches: Yes Hepatitis: No Hiatal Hernia: No Hypertension: Yes Immune Disorder: No Implanted Vascular Access Dvce: No Musculoskeletal: No Neurologic: Yes (neuropathy) Psychiatric: Yes Reproductive: No Immunizations Current: Yes Migraines: No Myocardial Infarction: Yes (2001) Radiation Therapy: No Seizures: No Sickle Cell Disease: No Sleep Apnea: No Ulcer: Yes (STOMACH) PNEUMOCCOCAL Vaccine (Year): 1 ?: Not Menopausal: Yes : 10 Para: 9 Miscarriage: 1 Past Surgical History Abdominal Surgery: No AICD: No Arteriovenous Shunt: No Cardiac Surgery: Yes (CABG) Cholecystectomy: Yes Coronary Artery Bypass Graft: Yes (quadruple) Ear Surgery: No Endocrine Surgery: No Eye Surgery: Yes (CATARACTS) Genitourinary Surgery: No Gynecologic Surgery: No Insulin Pump: No Joint Replacement: No Oral Surgery: No Pacemaker: No Thoracic Surgery: No Tonsillectomy: Yes Other Surgery: Yes Social History Alcohol Use: No Tobacco Use: No (pt quit 15 years ago,) Substance Use: No Allergies-Medications (Allergen,Severity, Reaction): Coded Allergies: diatrizoate meglumine (Unverified Allergy, Severe, CAN'T REMEMBER, 11/16/16 ) Pt states "I have no idea" to every allergy I ask her about gadobenic acid (Unverified Allergy, Severe, CAN'T REMEMBER, 11/16/16) Pt states "I have no idea" to every allergy I ask her about gadodiamide (Unverified Allergy, Severe, CAN'T REMEMBER, 11/16/16) Pt states "I have no idea" to every allergy I ask her about gadoteridol (Unverified Allergy, Severe, CAN'T REMEMBER, 11/16/16) Pt states "I have no idea" to every allergy I ask her about iodine (Unverified Allergy, Severe, ON SKIN CAUSES BLISTERS, 11/16/16) Pt states "I have no idea" to every allergy I ask her about iodixanol (Unverified Allergy, Severe, CAN'T REMEMBER, 11/16/16) Pt states "I have no idea" to every allergy I ask her about iohexol (Unverified Allergy, Severe, CAN'T REMEMBER, 11/16/16) Pt states "I have no idea" to every allergy I ask her about potassium iodide (Unverified Allergy, Severe, ON SKIN CAUSES BLISTERS, 11/16/16) Pt states "I have no idea" to every allergy I ask her about povidone-iodine (Unverified Allergy, Severe, ON SKIN CAUSES BLISTERS, 11/16) Pt states "I have no idea" to every allergy I ask her about shellfish derived (Unverified Allergy, Severe, N/V, 11/16/16) Pt states "I have no idea" to every allergy I ask her about sodium iodide (Unverified Allergy, Severe, ON SKIN CAUSES BLISTERS, ) Pt states "I have no idea" to every allergy I ask her about sodium iodide (Unverified Allergy, Severe, ON SKIN CAUSES BLISTERS, ) Pt states "I have no idea" to every allergy I ask her about codeine (Unverified Allergy, Mild, NAUSEA, 11/16/16) Pt states "I have no idea" to every allergy I ask her about Reported Meds & Prescriptions Reported Meds & Active Scripts Active Hydrocodone-Acetaminophen 5-325 mg Tab 1 Tab PO Q4H PRN Pantoprazole (Pantoprazole Sodium) 40 Mg Tab 40 Mg PO DAILY Reported Xanax (Alprazolam) 0.5 Mg Tab 0.5 Mg PO Q8H PRN Nitroglycerin SL (Nitroglycerin) 0.4 Mg Subl 0.4 Mg SL DIRECTED PRN ONE TABLET UNDER THE TONGUE NEEDED FOR CHEST PAIN, MAY REPEAT EVERY FIVE MINUTES FOR A TOTAL OF 3 DOSES OR CALL 911 IF NO RELIEF Buspirone (Buspirone HCl) 15 Mg Tab 15 Mg PO TID Ferrous Sulfate 325 Mg (65 Mg Iron) Tablet 325 Mg PO TIDPC Metformin (Metformin HCl) 500 Mg Tab 500 Mg PO BIDPC Remeron (Mirtazapine) 15 Mg Tab 15 Mg PO HS Melatonin 5 Mg Tab 6 Mg PO HS Aspirin Low Dose (Aspirin) 81 Mg Chew 81 Mg CHEW DAILY Duloxetine DR (Duloxetine HCl) 60 Mg Capdr 60 Mg PO DAILY Lipitor (Atorvastatin Calcium) 10 Mg Tab 10 Mg PO HS Glimepiride 1 Mg Tab 1 Mg PO DAILY Take with breakfast or first main meal Omeprazole 40 Mg Cap 40 Mg PO DAILY Gabapentin 100 Mg Cap 100 Mg PO HS Meclizine (Meclizine HCl) 25 Mg Tab 25 Mg PO DIRECTED PRN Isosorbide Dinitrate 30 Mg Tab 1 Tab PO DAILY Review of Systems Except as stated in HPI: all other systems reviewed are Neg HENT: Positive: Headaches, Neck Pain Cardiovascular: No: Chest Pain or Discomfort, Palpitations Respiratory: No: Cough Gastrointestinal: No: Nausea, Vomiting, Abdominal Pain Musculoskeletal: Positive: Pain, No: Weakness (upper thoracic back) Neurologic: Positive: Headache, No: Weakness, Dizziness, Syncope, Change in Mentation Physical Exam Narrative GENERAL: Well-nourished, well-developed patient in C-spine immobilization. SKIN: Focused skin assessment warm/dry. HEAD: Normocephalic. Patient has a laceration to the left forehead. It is difficult to ascertain size secondary to the matted blood in the hair. EYES: No scleral icterus. No injection or drainage. NECK: Trachea midline. C-spine and c-collar mobilization. CARDIOVASCULAR: Regular rate and rhythm without murmurs, gallops, or rubs. RESPIRATORY: Breath sounds equal bilaterally. No accessory muscle use. GASTROINTESTINAL: Abdomen soft, non-tender, nondistended. No rebound no guarding. MUSCULOSKELETAL: No cyanosis, or edema. Light skin tear to the left elbow. Full range of motion noted. BACK: Tenderness in the upper thoracic spine. No posterior spinous process deformity. No lumbar spinous pain. NEUROLOGICAL: Awake and alert. Cranial nerves II through XII intact. Motor grossly within normal limits. Five out of 5 muscle strength in all muscle groups. Normal speech. Data Data Last Documented VS Vital Signs Date Time Temp Pulse Resp B/P (MAP) Pulse Ox O2 Delivery O2 Flow Rate FiO2 11/20/16 18:48 97.9 98 18 113/53 (73) 96 Room Air Orders Orders Ct Brain W/O Iv Contrast(Rout) (11/20/16 18:34) Ct Cerv Spine W/O Contrast (11/20/16 18:34) Ct Thor Spine W/O Contrast (11/20/16 18:34) MDM Medical Decision Making Medical Screen Exam Complete: Yes Emergency Medical Condition: Yes Differential Diagnosis Cranial hemorrhage versus superficial scalp laceration versus cervical spine injury versus thoracic spine injury Narrative Course 86-year-old female presents from the alf after mechanical fall. The patient fell while on the commode. The patient had no loss of consciousness. She does have a laceration to her left 4 head. She's complaining of head neck and upper thoracic spine pain. She also has an abrasion to her left elbow. She 'll be signed out to Dr. Zamarripa, physician replacing me at change of shift. Disposition and further care will be per her. Diagnosis Primary Impression: Closed head injury Additional Impressions: Scalp laceration Cervical spine pain Thoracic spine pain Mitchel Pulliam MD Nov 20, 2016 18:58
[2016-11-20] MEDS ORDERED: TETANUS/DIPHTHERIA TOXOID ADULT 0.5 ML VIAL IM ONE (19:15)
[2016-11-20] MEDS ORDERED: LIDOCAINE HCL 1% 50 ML VIAL INFIL ONE (19:15)
--- NOTE | 2016-11-20 19:45 | RADRPT ---
EXAM DATE/TIME: 11/20/2016 19:19 [facility] COMPARISON: No previous studies available for comparison. INDICATIONS : Head pain. RADIATION DOSE: 39.38 CTDIvol (mGy) ; Patient motion MEDICAL HISTORY : Chronic obstructive pulmonary disease. Diabetes mellitus type 2. Cardiovascular disease Gastroesophag eal reflux disease. SURGICAL HISTORY : Cholecystectomy. CABGHysterectomy. ENCOUNTER: Initial ACUITY: 1 day PAIN SCALE: 4/10 LOCATION: Bilateral cranial TECHNIQUE: Multiple contiguous axial images were obtained of the head. Using automated exposure control and adj ustment of the mA and/or kV according to patient size, radiation dose was kept as low as reasonably a chievable to obtain optimal diagnostic quality images. DICOM format image data is available electro nically for review and comparison. FINDINGS: CEREBRUM: The ventricles are normal for age. No evidence of midline shift, mass lesion, hemorrhage or acute in farction. No extra-axial fluid collections are seen. POSTERIOR FOSSA: The cerebellum and brainstem are intact. The 4th ventricle is midline. The cerebellopontine angle i s unremarkable. EXTRACRANIAL: The visualized portion of the orbits is intact. SKULL: The calvaria is intact. No evidence of skull fracture. CONCLUSION: 1. No acute intracranial abnormalities. Cortical volume loss with white matter ischemic changes. Leobardo Merlos MD on November 20, 2016 at 19:42 Board Certified Radiologist. This report was verified electronically.
--- NOTE | 2016-11-20 19:50 | RADRPT ---
EXAM DATE/TIME: 11/20/2016 19:19 [facility] COMPARISON: No previous studies available for comparison. INDICATIONS : Neck pain from fall. RADIATION DOSE: 21.44 CTDIvol (mGy) MEDICAL HISTORY : Chronic obstructive pulmonary disease. Diabetes mellitus type 2. Cardiovascular diseaseCongestive hea rt failure. SURGICAL HISTORY : CABG Cholecystectomy.Hysterectomy. ENCOUNTER: Initial ACUITY: 1 day PAIN SCALE: 3/10 LOCATION: Bilateral neck region. TECHNIQUE: Volumetric scanning of the cervical spine was performed. Multiplanar reconstructions in the sagittal, coronal and oblique axial planes were performed. Using automated exposure control and adjustment o f the mA and/or kV according to patient size, radiation dose was kept as low as reasonably achievable to obtain optimal diagnostic quality images. DICOM format image data is available electronically f or review and comparison. FINDINGS: There is moderate degenerative disc disease and facet arthropathy. Normal alignment without fracture or spondylolisthesis. No change from 2 days ago. Bilateral thyroid nodules. CONCLUSION: 1. No acute findings. No change from 2 days ago. Leobardo Merlos MD on November 20, 2016 at 19:44 Board Certified Radiologist. This report was verified electronically.
--- NOTE | 2016-11-20 19:59 | RADRPT ---
EXAM DATE/TIME: 11/20/2016 19:25 [facility] COMPARISON: CT THORACIC SPINE W/O CONTRAST, December 30, 2015, 22:18. INDICATIONS : Mid back pain from fall. RADIATION DOSE: 35.86 CTDIvol (mGy) MEDICAL HISTORY : Chronic obstructive pulmonary disease. Diabetes mellitus type 2. Cardiovascular diseaseCongestive hea rt failure. SURGICAL HISTORY : CABG Hysterectomy.Cholecystectomy. ENCOUNTER: Initial ACUITY: 1 day PAIN SCALE: 4/10 LOCATION: Bilateral mid back. TECHNIQUE: Volumetric scanning of the thoracic spine was performed. Multiplanar reconstructions in the sagittal , coronal and oblique axial planes were performed. Using automated exposure control and adjustment o f the mA and/or kV according to patient size, radiation dose was kept as low as reasonably achievable to obtain optimal diagnostic quality images. DICOM format image data is available electronically f or review and comparison. FINDINGS: Comparison December 2015 and kyphoscoliosis. 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 No fracture or subluxation. No bony destructive changes. CONCLUSION: 1. No acute fracture or spondylolisthesis. Mild kyphoscoliosis and ankylosis. Moderate to severe dege nerative change. Leobardo Merlos MD on November 20, 2016 at 19:52 Board Certified Radiologist. This report was verified electronically.
--- NOTE | 2016-11-20 20:06 | PD ---
Physical Exam Time Seen by Provider: 19:50 Data Data Last Documented VS Vital Signs Date Time Temp Pulse Resp B/P (MAP) Pulse Ox O2 Delivery O2 Flow Rate FiO2 11/20/16 18:48 97.9 98 18 113/53 (73) 96 Room Air Orders Orders Ct Brain W/O Iv Contrast(Rout) (11/20/16 18:34) Ct Cerv Spine W/O Contrast (11/20/16 18:34) Ct Thor Spine W/O Contrast (11/20/16 18:34) Tetanus/Diphtheria Tox Adult (Tetanus/Di (11/20/16 19:15) Lidocaine 1% Inj (50 Ml) (Xylocaine 1% I (11/20/16 19:15) MDM Medical Record Reviewed: Yes Supervised Visit with GALEN: No Narrative Course I was asked to repair this patient's laceration. Please see cupping procedure note. The patient verbally consents for laceration repair. Procedures Procedure Narrative LACERATION LOCATION: Left confucianism LENGTH: 2 cm NUMBER OF STITCHES/KATLYN: 5 REPAIR: The area of the laceration was prepped with Betadine and sterilely draped. The laceration was infiltrated with 1% lidocaine. The wound was copiously irrigated and explored without evidence of foreign body, tendon injury or neurovascular injury. The wound was closed using 6-0 prolene simple interrupted. This was a single layer repair. A sterile dressing was applied. The patient was advised to keep the dressing clean and dry. Patient tolerated the procedure well. Diagnosis Primary Impression: Closed head injury Additional Impressions: Cervical spine pain Scalp laceration Thoracic spine pain Israel Spicer Nov 20, 2016 20:06
--- NOTE | 2016-11-20 20:12 | PD ---
Physical Exam Date Seen by Provider: Nov 20, 2016 Time Seen by Provider: 19:00 Narrative Patient signed out to me at [address] Pulliam, please see previous notes for further details. Patient is from a correction, fell, head injury, awaiting CAT scans to rule out intracranial injuries or fractures. Laceration has been sutured by my PA Israel, please see PA note for further details and laceration repair. Last 24 hours Impressions [address] Spine CT 11/20/161833 Signed Impressions: Service Date/Time: Sunday, November 20, 2016 19:25 - CONCLUSION: 1. No acute fracture or spondylolisthesis. Mild kyphoscoliosis and ankylosis. Moderate to severe degenerative change. Leobardo Merlos MD Head CT 11/20/161833 Signed Impressions: Service Date/Time: Sunday, November 20, 2016 19:19 - CONCLUSION: 1. No acute intracranial abnormalities. Cortical volume loss with white matter ischemic changes. Leobardo Merlos MD Cervical Spine CT 11/20/161833 Signed Impressions: Service Date/Time: Sunday, November 20, 2016 19:19 - CONCLUSION: 1. No acute findings. No change from 2 days ago. Leobardo Merlos MD CAT scans did not show any signs of acute injuries on CAT scan. Tetanus had been given in the ER. My plan would be to release the patient wound care instructions for suture removal in 5-7 days. Return for any new issues as needed. Patient obviously is a fall risk. She will be going back to correction. Data Data Last Documented VS Vital Signs Date Time Temp Pulse Resp B/P (MAP) Pulse Ox O2 Delivery O2 Flow Rate FiO2 11/20/16 18:48 97.9 98 18 113/53 (73) 96 Room Air Orders Orders Ct Brain W/O Iv Contrast(Rout) (11/20/16 18:34) Ct Cerv Spine W/O Contrast (11/20/16 18:34) Ct Thor Spine W/O Contrast (11/20/16 18:34) Tetanus/Diphtheria Tox Adult (Tetanus/Di (11/20/16 19:15) Lidocaine 1% Inj (50 Ml) (Xylocaine 1% I (11/20/16 19:15) MDM Medical Record Reviewed: Yes Supervised Visit with GALEN: No Diagnosis Primary Impression: Closed head injury Additional Impressions: Cervical spine pain Scalp laceration Thoracic spine pain Disposition: 03 DISCHARGE TO SNF Condition: Stable Flex Menjivar MD Nov 20, 2016 20:12
[2016-11-20] MEDS ORDERED: HALOPERIDOL LACTATE 5 MG/ML AMP IM ONE (23:15)
== END 2016-11-21 06:38 ==
LOC: NEPC 18:27
DX: S09.90XA Unspecified injury of head, initial encounter (principal); S01.01XA Laceration without foreign body of scalp, initial encounter; M54.6 Pain in thoracic spine; M54.2 Cervicalgia; E11.9 Type 2 diabetes mellitus without complications; J44.9 Chronic obstructive pulmonary disease, unspecified; I11.0 Hypertensive heart disease with heart failure; W18.12XA Fall from or off toilet with subsequent striking against object, initial encounter; Y93.9 Activity, unspecified; Y92.121 Bathroom in nursing home as the place of occurrence of the external cause; Z23 Encounter for immunization
CPT/HCPCS: 12011; 70450; 72125; 72128; 90471; 90714; 99285; J1630